=== PATIENT | male | born 1960 | race Caucasian/White ===

== ENCOUNTER 2017-11-21 19:01 | Inpatient (IN) | payer OTHER ==
[~2017-11-21] VITALS: Ht 177.8 cm; Wt 113.2 kg
[~2017-11-21 19:01] MED LIST: ALPR-412 PO; ASPI81TA25 PO; FLX10 PO; GLC/500 PO; GLIM2TAB2 PO; OXYC-57 PO
[2017-11-21] MEDS ORDERED: SODIUM CHLORIDE 0.9% 1000ML 1,000 ML IV STA (20:30)
[2017-11-21 20:44] LABS: BASO % 0.2 %; BASO ABS # 0.01 K/uL (0-0.2); EOS % 0.8 %; EOS ABS # 0.04 K/uL (0-0.5); HEMATOCRIT 48.9 % (42-52); HEMOGLOBIN 17.4 g/dL (14.0-18.0); IG# 0.05 K/uL (0.00-0.02); LYMPH % 26.4 %; LYMPH ABS # 1.35 K/uL (1.2-3.4); MEAN CELL VOLUME 89.9 fL (80-100); MEAN CORPUSCULAR HGB CONC 35.6 g/dl (32-36); MEAN PLATELET VOLUME 10.3 fL (7.4-10.4); MONO % 20.1 %; MONO ABS # 1.03 K/uL (0.11-0.59); NEUT % 51.5 %; NEUT ABS # 2.64 K/uL (1.4-6.5); PLATELET COUNT 273 K/uL (130-400); RED CELL DISTRIBUTION WIDTH CV 13.2 % (11.5-14.5); RED CELL DISTRIBUTION WIDTH SD 43.5 fL (36.4-46.3); WHITE BLOOD COUNT 5.12 K/uL (4.8-10.8)
[2017-11-21] MEDS ORDERED: OPTIRAY 320 IV PRN (20:45)
[2017-11-21 20:51] LABS: ISTAT CREATININE 0.7 mg/dl (0.6-1.3); ISTAT IONIZED CALCIUM 1.04 mmol/l (1.12-1.32); ISTAT POTASSIUM 3.7 mEq/L (3.3-5.0)
[2017-11-21 20:58] LABS: ALBUMIN 3.1 gm/dl (3.4-5.0); ALT/SGPT 33 U/L (12-78); AST/SGOT 11 U/L (15-37); BLOOD UREA NITROGEN 9 mg/dl (7-18); CALCIUM 8.4 mg/dl (8.5-10.1); CARBON DIOXIDE 30 mmol/L (21-32); GLUCOSE 320 mg/dl (70-99); LIPASE 90 U/L (73-393); POTASSIUM 3.6 mmol/L (3.5-5.1); SODIUM 131 mmol/L (136-145)
[2017-11-21 21:01] LABS: TOTAL PROTEIN 7.7 gm/dl (6.4-8.2)
[2017-11-21 21:08] LABS: ALKALINE PHOSPHATASE 87 U/L (45-117)
[2017-11-21] MEDS ORDERED: LISI2.5T5 PO (21:09)
[2017-11-21] MEDS ORDERED: METF-384 PO (21:09)
[2017-11-21] MEDS ORDERED: NORT25CA PO (21:09)
[2017-11-21] MEDS ORDERED: OXYC7.5T65 PO (21:09)
[2017-11-21] MEDS ORDERED: GLIM4TAB2 PO (21:09)
[2017-11-21] MEDS ORDERED: CYCL10TA6 PO (21:09)
[2017-11-21] MEDS ORDERED: NVLGI/PEN SC (21:15)
[2017-11-21] MEDS ORDERED: NAPR-1169 PO (21:15)
[2017-11-21] MEDS ORDERED: VENL-273 PEG (21:15)
[2017-11-21] MEDS ORDERED: SPRIN/30 INH (21:15)
--- NOTE | 2017-11-21 21:46 | DIAGNOSTIC IMAGING REPORT ---
ABDOMEN AND PELVIS CT WITH IV CONTRAST CT DOSE: 1438.49 mGy.cm HISTORY: Generalized abdominal pain. TECHNIQUE: Multiaxial CT images of the abdomen and pelvis were performed following the use of intravenous contrast. A dose lowering technique was utilized adhering to the principles of ALARA. COMPARISON STUDY: None. FINDINGS: The lung bases are clear. No pneumoperitoneum. No pneumatosis. Posterior fusion within the lumbar spine. Hepatic steatosis. The gallbladder, pancreas, spleen, adrenal glands, and kidneys are unremarkable. Mild bilateral perinephric edema which may be chronic. No retroperitoneal lymphadenopathy. The bladder is unremarkable. Multiple distended gas and fluid-filled loops of small bowel seen within the abdomen. The distal ileal loops are decompressed. Transition point is likely seen within the right mid abdomen on image 287. Therefore, these findings are consistent with a small bowel obstruction. The small bowel is distended up to 4 cm in diameter. Small amount of mesenteric fluid is identified. Normal appendix. IMPRESSION: Multiple distended gas and fluid-filled loops of small bowel seen throughout the abdomen. The distal ileal loops are decompressed and there is an apparent transition point within the small bowel at the right mid abdomen. Therefore, these findings are consistent with a small bowel obstruction. Electronically signed by: Jose Abbasi M.D. 11/21/2017 9:45 PM Dictated Date/Time: 11/21/2017 9:39 PM
[2017-11-21] MEDS ORDERED: MoRPHine SULFATE 10 MG/ML CARP/VIAL IV STA (22:16)
[2017-11-21] MEDS ORDERED: ONDANSETRON INJ 2 MG/ML 2 ML VIAL IV STA (22:16)
[2017-11-21] MEDS ORDERED: MoRPHine SULFATE 4 MG/ML 1 ML CARP\\VIAL IV STA (23:25)
[2017-11-21] MEDS ORDERED: SODIUM CHLORIDE 0.9% 500ML 500 ML IV STA (23:36)
--- NOTE | 2017-11-21 23:40 | EMERGENCY ROOM VISIT NOTE ---
History Report prepared by Oscar: Nicki Kong Under the Supervision of: Beatrice RomeroO. First contact with patient: 20:20 Chief Complaint: ABDOMINAL PAIN Stated Complaint: SEVERE STOMACH PAIN Nursing Triage Summary: nausea vomiting diarrhea for fours days. with severe abodmial pain states he feels like he is going to pop History of Present Illness The patient is a 56 year old male who presents to the Emergency Room with complaints of worsening diffuse abdominal pain for the past 3 days. He has been experiencing nausea, vomiting, and diarrhea. His last episode of vomiting was yesterday and he has had no vomiting today. He states that he has no appetite and has not eaten for the past 3 days. He has been able to keep down some water. His last BM was a couple of hours ago. Pt reports his abdomen feels very distended. He notes that family members were recently sick with similar symptoms. He rates his current pain as a 9/10 in severity. Pt denies headache, change in vision, fevers, chest pain, shortness of breath, pain with urination, and melena. Source of History: patient Onset: 3 days ago Position: abdomen (diffuse) Symptom Intensity: 9/10 Timing: worsening Associated Symptoms: + nausea, + vomiting, + diarrhea, No fevers, No headache, No chest pain, No SOB, No melena, No urinary symptoms Review of Systems See HPI for pertinent positives & negatives. A total of 10 systems reviewed and were otherwise negative. Past Medical & Surgical Medical Problems: (1) Spondylolisthesis (2) Ulnar nerve lesion Family History No pertinent history stated. Social History Smoking Status: Former Smoker Marital Status: Housing Status: lives with significant other Current/Historical Medications Scheduled Aspirin (Aspir-Low), 81 MG PO HS Glimepiride (Glimepiride), 8 MG PO DAILY Insulin Aspart (Novolog Flexpen), 1 DOSE SC ACHS Lisinopril (Lisinopril), 2.5 MG PO DAILY Metformin Hcl (Glucophage), 1,000 MG PO BIDM Nortriptyline (Pamelor), 25 MG PO HS Tiotropium [place] (Spiriva Handihaler), 1 CAP INH DAILY Scheduled PRN Alprazolam (Alprazolam), 0.25 MG PO DAILY PRN for Anxiety Cyclobenzaprine Hcl (Flexeril), 10 MG PO TID PRN for Muscle Spasm Naproxen (Naprosyn), 500 MG PO BID PRN for Pain Oxycodone/Acetaminophen 7.5MG/325MG (Percocet 7.5MG/325MG), 1 TAB PO Q6H PRN for Pain Allergies Coded Allergies: No Known Allergies (Verified Allergy, Unknown, 07/31/06) Physical Exam Vital Signs Date Time Temp Pulse Resp B/P (MAP) Pulse Ox O2 Delivery O2 Flow Rate FiO2 11/21/17 21:50 101 16 124/77 95 Room Air 11/21/17 19:49 36.7 111 20 131/84 95 Room Air Physical Exam GENERAL: Sitting up in bed, alert, ill appearing, well nourished, moderate distress, non-toxic EYE EXAM: normal conjunctiva. OROPHARYNX: no exudate, no erythema, lips, buccal mucosa, and tongue normal and mucous membranes are moist NECK: supple, no nuchal rigidity, no adenopathy, non-tender LUNGS: Clear to auscultation. Normal chest wall mechanics HEART: no murmurs, S1 normal and S2 normal ABDOMEN: abdomen soft, distended and TTP, normo-active bowel sounds, no masses, no rebound or guarding. BACK: Back is symmetrical on inspection and there is no deformity, no midline tenderness, no CVA tenderness. SKIN: no rashes and no bruising UPPER EXTREMITIES: upper extremities are grossly normal. LOWER EXTREMITIES: No pitting edema. NEURO EXAM: Normal sensorium, cranial nerves II-XII grossly intact, normal speech, no gross weakness of arms, no gross weakness of legs. Medical Decision & Procedures ER Provider Diagnostic Interpretation: Radiology results as stated below per my review and the radiologist's interpretation: ABDOMEN AND PELVIS CT WITH IV CONTRAST CT DOSE: 1438.49 mGy.cm HISTORY: Generalized abdominal pain. TECHNIQUE: Multiaxial CT images of the abdomen and pelvis were performed following the use of intravenous contrast. A dose lowering technique was utilized adhering to the principles of ALARA. COMPARISON STUDY: None. FINDINGS: The lung bases are clear. No pneumoperitoneum. No pneumatosis. Posterior fusion within the lumbar spine. Hepatic steatosis. The gallbladder, pancreas, spleen, adrenal glands, and kidneys are unremarkable. Mild bilateral perinephric edema which may be chronic. No retroperitoneal lymphadenopathy. The bladder is unremarkable. Multiple distended gas and fluid-filled loops of small bowel seen within the abdomen. The distal ileal loops are decompressed. Transition point is likely seen within the right mid abdomen on image 287. Therefore, these findings are consistent with a small bowel obstruction. The small bowel is distended up to 4 cm in diameter. Small amount of mesenteric fluid is identified. Normal appendix. IMPRESSION: Multiple distended gas and fluid-filled loops of small bowel seen throughout the abdomen. The distal ileal loops are decompressed and there is an apparent transition point within the small bowel at the right mid abdomen. Therefore, these findings are consistent with a small bowel obstruction. Electronically signed by: Jose Abbasi M.D. 11/21/2017 9:45 PM Dictated Date/Time: 11/21/2017 9:39 PM Laboratory Results 11/21/17 20:26 Red Blood Count 5.44, Mean Corpuscular Volume 89.9, Mean Corpuscular Hemoglobin 32.0, Mean Corpuscular Hemoglobin Concent 35.6, Mean Platelet Volume 10.3, Neutrophils (%) (Auto) 51.5, Lymphocytes (%) (Auto) 26.4, Monocytes (%) (Auto) 20.1, Eosinophils (%) (Auto) 0.8, Basophils (%) (Auto) 0.2, Neutrophils # (Auto ) 2.64, Lymphocytes # (Auto) 1.35, Monocytes # (Auto) 1.03, Eosinophils # (Auto ) 0.04, Basophils # (Auto) 0.01 11/21/17 20:26 Test 11/21/17 20:26 11/21/17 20:38 White Blood Count 5.12 K/uL (4.8-10.8) Red Blood Count 5.44 M/uL (4.7-6.1) Hemoglobin 17.4 g/dL (14.0-18.0) Hematocrit 48.9 % (42-52) Mean Corpuscular Volume 89.9 fL (80-100) Mean Corpuscular Hemoglobin 32.0 pg (25-34) Mean Corpuscular Hemoglobin Concent 35.6 g/dl (32-36) Platelet Count 273 K/uL (130-400) Mean Platelet Volume 10.3 fL (7.4-10.4) Neutrophils (%) (Auto) 51.5 % Lymphocytes (%) (Auto) 26.4 % Monocytes (%) (Auto) 20.1 % Eosinophils (%) (Auto) 0.8 % Basophils (%) (Auto) 0.2 % Neutrophils # (Auto) 2.64 K/uL (1.4-6.5) Lymphocytes # (Auto) 1.35 K/uL (1.2-3.4) Monocytes # (Auto) 1.03 K/uL (0.11-0.59) Eosinophils # (Auto) 0.04 K/uL (0-0.5) Basophils # (Auto) 0.01 K/uL (0-0.2) RDW Standard Deviation 43.5 fL (36.4-46.3) RDW Coefficient of Variation 13.2 % (11.5-14.5) Immature Granulocyte % (Auto) 1.0 % Immature Granulocyte # (Auto) 0.05 K/uL (0.00-0.02) Est Creatinine Clear Calc Drug Dose 114.9 ml/min Estimated GFR () 110.3 Estimated GFR (Non- 95.1 BUN/Creatinine Ratio 9.9 (10-20) Calcium Level 8.4 mg/dl (8.5-10.1) Total Bilirubin 0.5 mg/dl (0.2-1) Direct Bilirubin < 0.1 mg/dl (0-0.2) Aspartate Amino Transf (AST/SGOT) 11 U/L (15-37) Alanine Aminotransferase (ALT/SGPT) 33 U/L (12-78) Alkaline Phosphatase 87 U/L (45-117) Total Protein 7.7 gm/dl (6.4-8.2) Albumin 3.1 gm/dl (3.4-5.0) Lipase 90 U/L (73-393) Beta-Hydroxybutyric Acid 13.72 mg/dL (0.2-2.81) Bedside Hemoglobin 17.7 g/dl (14.0-18.0) Bedside Hematocrit 52 % (42-52) Bedside Sodium 135 mEq/L (135-144) Bedside Potassium 3.7 mEq/L (3.3-5.0) Bedside Chloride 90 mEq/L (101-112) Bedside Total CO2 29 mEq/l (24-31) Anion Gap 22.0 mmol/L (16-25) Bedside Blood Urea Nitrogen 9 mg/dl (7-18) Bedside Creatinine 0.7 mg/dl (0.6-1.3) Bedside Glucose (other) 348 mg/dl (70-99) Bedside Ionized Calcium (Santos) 1.04 mmol/l (1.12-1.32) Laboratory results per my review. Medications Administered Medications (Trade) Dose Ordered Sig/Dale Route Start Time Stop Time Status Last Admin Dose Admin Sodium Chloride 1,000 ml @ 999 mls/hr Q1H1M STAT IV 11/21/17 20:30 11/21/17 21:30 DC 11/21/17 20:30 999 MLS/HR Morphine Sulfate (MoRPHine SULFATE INJ) 6 mg NOW STAT IV 11/21/17 22:16 11/21/17 22:17 DC 11/21/17 22:23 6 MG Ondansetron HCl (Zofran Inj) 4 mg NOW STAT IV 11/21/17 22:16 11/21/17 22:17 DC 11/21/17 22:16 4 MG ED Course ED COURSE: Vital signs were reviewed and showed tachycardic. The patients medical record was reviewed The above diagnostic studies were performed and reviewed. ED treatments and interventions as stated above. 2020: The patient was evaluated in room B11B. A complete history and physical examination was performed. 2030: NSS 1000 ml @ 999 mls/hr IV 2152: I spoke with Dr. Plunkett. We discussed the patients case. The patient will be evaluated by the [facility] for further management. 5: Upon reevaluation, the patient is still uncomfortable. I discussed my findings with the patient and he understands and agrees with the treatment plan. Based on the patients age, coexisting illnesses, exam and lab findings the decision to treat as an inpatient was made. The patient remained stable while under my care. The patient will be evaluated for further management. 2216: Zofran 4 mg IV, Morphine sulfate 6 mg IV 2325: I reassessed the patient at he is doing well but still having some pain. 2325: Morphine sulfate 4 mg IV Medical Decision Differential diagnoses includes but is not limited to gastritis, peptic ulcer disease, GERD, gallbladder disease, pancreatitis, small bowel obstruction, acute coronary syndrome, pericarditis, ischemic bowel, irritable bowel disease, irritable bowel syndrome, appendicitis, diverticulitis, malignancy, hernia, urinary tract infection, torsion, perforation, trauma, infectious. Patient is a 56-year-old male who presents to ER with a distended abdomen. Patient is acutely tender to palpation. He was tachycardic. CT shows a small bowel obstruction. BMP shows mild hyponatremia. AST was elevated at 320. Bilirubin LFTs were unremarkable. Lipase is normal. Due to the distention of his abdomen NG tube was placed. He obtained minimal relief. He was given several doses of IV narcotics. He is given Zofran. He was given 1.5 L normal saline. Discussed case with general surgery and internal medicine. Patient will be admitted for small bowel obstruction. Family was updated at bedside. Medication Reconcilliation Current Medication List: was personally reviewed by me Blood Pressure Screening Patient's blood pressure: Normal blood pressure Consults Time Called: 2148 Consulting Physician: Dr. Plunkett Returned Call: [address] Plunkett. We discussed the patients case. The patient will be evaluated by the [facility] for further management. Impression Primary Impression: Small bowel obstruction Scribe Attestation The scribe's documentation has been prepared under my direction and personally reviewed by me in its entirety. I confirm that the note above accurately reflects all work, treatment, procedures, and medical decision making performed by me. Departure Information Dispostion Being Evaluated By Hospitalist Referrals Radha Courtney M.D. (PCP) Patient Instructions [facility]
--- NOTE | 2017-11-21 23:43 | History and Physical ---
History & Physical Date & Time of Service: Nov 21, 2017 at 23:30 Chief Complaint: Severe Stomach Pain Primary Care Physician: Radha Courtney M.D. History of Present Illness Source: patient, family 56 year old male with CAD, COPD, DMII, HTN, HLD and chronic back pain admitted for small bowel obstruction 3 days ago, woke up from sleep at 2am with vomiting and diarrhea. Attributed it to stomach bug as and daughter had similar symptoms the day prior. Had 3 episodes of vomiting, non-bloody, on that Sunday night, none since then. However, continues to have nausea. Has been having diarrhea almost hourly for the last 3 days, non bloody. This is abnormal for patient as he is normally constipated due to chronic Percocet use. Patient states he is continuing to pass flatus, even here in the ED. Patient notice abdominal bloating yesterday, which progressively worsened today and became unbearable. He has been unable for PO intake over the last 3 days, due to significant abdominal pain and nausea with each attempt. Also has associated chest discomfort secondary to bloated abdomen pushing up He otherwise denies fevers/chills (has chronic sweats), headaches, CP, palpitations, dyspnea, lower extremity swelling or rashes. Denies issues with voiding. He does describes "bumps" in his mouth which seemed to have appeared today. Denies any previous similar episodes. No abdominal/pelvic surgery. Has had back surgery but denies anterior approach. ROS is unremarkable except as noted above. Past Medical/Surgical History Medical Problems: DMII COPD Anxiety HTN/HLD Chronic back pain Spondylolisthesis Ulnar nerve lesion Surgical problems Back surgery x 2 Tumor removal from left chest and right posterior shoulder Arthroscopic knee surgery Social History Smoking Status: Former Smoker (Ex smoker, with 10 pack year history) Smokeless Tobacco Use: No Alcohol Use: none Drug Use: none Marital Status: Housing status: lives with family Immunizations History of Influenza Vaccine: No History of Tetanus Vaccine?: Yes Tetanus Immunization Date: Aug 03, 2005 History of Pneumococcal: No History of Hepatitis B Vaccine: No Multi-Drug Resistant Organisms History of MDRO: No Allergies Coded Allergies: No Known Allergies (Verified Allergy, Unknown, 07/31/06) Home Medications Scheduled Aspirin (Aspir-Low), 81 MG PO HS Glimepiride (Glimepiride), 8 MG PO DAILY Insulin Aspart (Novolog Flexpen), 1 DOSE SC ACHS Lisinopril (Lisinopril), 2.5 MG PO DAILY Metformin Hcl (Glucophage), 1,000 MG PO BIDM Nortriptyline (Pamelor), 25 MG PO HS Tiotropium [place] (Spiriva Handihaler), 1 CAP INH DAILY Scheduled PRN Alprazolam (Alprazolam), 0.25 MG PO DAILY PRN for Anxiety Cyclobenzaprine Hcl (Flexeril), 10 MG PO TID PRN for Muscle Spasm Naproxen (Naprosyn), 500 MG PO BID PRN for Pain Oxycodone/Acetaminophen 7.5MG/325MG (Percocet 7.5MG/325MG), 1 TAB PO Q6H PRN for Pain Physical Exam Vital Signs Date Time Temp Pulse Resp B/P (MAP) Pulse Ox O2 Delivery O2 Flow Rate FiO2 11/21/17 21:50 101 16 124/77 95 Room Air 11/21/17 19:49 36.7 111 20 131/84 95 Room Air General Appearance: WD/WN, no apparent distress Head: normocephalic, atraumatic Eyes: normal inspection ENT: hearing grossly normal, + pharyngeal erythema (Evidence of thrush on tongue and buccal mucosa), + pertinent finding (NGT in situ) Neck: supple, no adenopathy Respiratory/Chest: lungs clear, normal breath sounds, no respiratory distress, no accessory muscle use Cardiovascular: regular rate, rhythm, no murmur, normal peripheral pulses Abdomen/GI: normal bowel sounds (mildly hypoactive in lower abdomen), soft, + tenderness (mainly in epigastric region. Patient states abdomen couldn't be touched at all prior to morphine administration.), + distended Back: normal inspection, no CVA tenderness, + pertinent finding (scar on low back from previous surgery, tenderness on palpation here - not new) Extremities/Musculoskelatal: no calf tenderness, normal capillary refill, no pedal edema Neurologic/Psych: alert, normal mood/affect, oriented x 3 Skin: normal color, warm/dry, no rash Diagnostics Laboratory Results Results Past 24 Hours Test 11/21/17 20:26 11/21/17 20:38 Range/Units White Blood Count 5.12 4.8-10.8 K/uL Red Blood Count 5.44 4.7-6.1 M/uL Hemoglobin 17.4 14.0-18.0 g/dL Hematocrit 48.9 42-52 % Mean Corpuscular Volume 89.9 80-100 fL Mean Corpuscular Hemoglobin 32.0 25-34 pg Mean Corpuscular Hemoglobin Concent 35.6 32-36 g/dl Platelet Count 273 130-400 K/uL Mean Platelet Volume 10.3 7.4-10.4 fL Neutrophils (%) (Auto) 51.5 % Lymphocytes (%) (Auto) 26.4 % Monocytes (%) (Auto) 20.1 % Eosinophils (%) (Auto) 0.8 % Basophils (%) (Auto) 0.2 % Neutrophils # (Auto) 2.64 1.4-6.5 K/uL Lymphocytes # (Auto) 1.35 1.2-3.4 K/uL Monocytes # (Auto) 1.03 0.11-0.59 K/uL Eosinophils # (Auto) 0.04 0-0.5 K/uL Basophils # (Auto) 0.01 0-0.2 K/uL RDW Standard Deviation 43.5 36.4-46.3 fL RDW Coefficient of Variation 13.2 11.5-14.5 % Immature Granulocyte % (Auto) 1.0 % Immature Granulocyte # (Auto) 0.05 0.00-0.02 K/uL Sodium Level 131 136-145 mmol/L Potassium Level 3.6 3.5-5.1 mmol/L Chloride Level 94 98-107 mmol/L Carbon Dioxide Level 30 21-32 mmol/L Anion Gap 7.0 22.0 16-25 mmol/L Blood Urea Nitrogen 9 7-18 mg/dl Creatinine 0.90 0.60-1.40 mg/dl Est Creatinine Clear Calc Drug Dose 114.9 ml/min Estimated GFR () 110.3 Estimated GFR (Non- 95.1 BUN/Creatinine Ratio 9.9 10-20 Random Glucose 320 70-99 mg/dl Calcium Level 8.4 8.5-10.1 mg/dl Total Bilirubin 0.5 0.2-1 mg/dl Direct Bilirubin < 0.1 0-0.2 mg/dl Aspartate Amino Transf (AST/SGOT) 11 15-37 U/L Alanine Aminotransferase (ALT/SGPT) 33 12-78 U/L Alkaline Phosphatase 87 45-117 U/L Total Protein 7.7 6.4-8.2 gm/dl Albumin 3.1 3.4-5.0 gm/dl Lipase 90 73-393 U/L Beta-Hydroxybutyric Acid 13.72 0.2-2.81 mg/dL Bedside Hemoglobin 17.7 14.0-18.0 g/dl Bedside Hematocrit 52 42-52 % Bedside Sodium 135 135-144 mEq/L Bedside Potassium 3.7 3.3-5.0 mEq/L Bedside Chloride 90 101-112 mEq/L Bedside Total CO2 29 24-31 mEq/l Bedside Blood Urea Nitrogen 9 7-18 mg/dl Bedside Creatinine 0.7 0.6-1.3 mg/dl Bedside Glucose (other) 348 70-99 mg/dl Bedside Ionized Calcium (Santos) 1.04 1.12-1.32 mmol/l Diagnostic Radiology ABDOMEN AND PELVIS CT WITH IV CONTRAST CT DOSE: 1438.49 mGy.cm HISTORY: Generalized abdominal pain. TECHNIQUE: Multiaxial CT images of the abdomen and pelvis were performed following the use of intravenous contrast. A dose lowering technique was utilized adhering to the principles of ALARA. COMPARISON STUDY: None. FINDINGS: The lung bases are clear. No pneumoperitoneum. No pneumatosis. Posterior fusion within the lumbar spine. Hepatic steatosis. The gallbladder, pancreas, spleen, adrenal glands, and kidneys are unremarkable. Mild bilateral perinephric edema which may be chronic. No retroperitoneal lymphadenopathy. The bladder is unremarkable. Multiple distended gas and fluid-filled loops of small bowel seen within the abdomen. The distal ileal loops are decompressed. Transition point is likely seen within the right mid abdomen on image 287. Therefore, these findings are consistent with a small bowel obstruction. The small bowel is distended up to 4 cm in diameter. Small amount of mesenteric fluid is identified. Normal appendix. IMPRESSION: Multiple distended gas and fluid-filled loops of small bowel seen throughout the abdomen. The distal ileal loops are decompressed and there is an apparent transition point within the small bowel at the right mid abdomen. Therefore, these findings are consistent with a small bowel obstruction. Impression Assessment and Plan 56 year old male with CAD, COPD, DMII, HTN, HLD and chronic back pain admitted for small bowel obstruction SBO - CT abdo: multiple distended gas and fluid-filled loops of small bowel seen throughout the abdomen. The distal ileal loops are decompressed and there is an apparent transition point within the small bowel at the right mid abdomen - NPO - NGT - IVF NSS @ 100cc/hr - Surgery consulted - IV ondansetron 4mg q8h PRN nausea - IV morphine 2-4mg q4h PRN pain Diarrhea - most likely secondary to viral gastroenteritis - C.diff sent out (recent abx use <2 weeks ago post derm procedure) Thrush - Nystatin swish and spit CAD/HTN - Aspirin, lisinopril held for NPO status - IV hydralazine 10mg q6h for SBP >160 COPD - Continue Spiriva DMII - Metformin and glimepiride held - ISS with check ac/hs Chronic back pain - Hold Percocet, naproxen, Flexeril - IV morphine as above Anxiety - Alprazolam and nortriptyline held - IV Ativan 0.5mg q8h PRN anxiety VTE ppx - SCDs FULL CODE Resident Physician Supervision Note: Pt evaluated independently. I discussed the case with the resident and agree with the findings and plan as documented in the note. Any exceptions or clarifications are listed here: 56 y/o M Hx CAD, COPD, DMII, HTN, HPL , chronic back pain Presenting with diarrheal illness which resolved and was then followed by abdominal pain and persistent vomiting. The pt was subjected to a CT in the ER which revealed an SBO OE AAO x 3 S1,2 R CTAB Distended, diffusely tender abdomen No CCE P: NPO, IVF, NTG as needed - consult surgery Placed on SS for DM Would restart ASA at earliest possible time due to history of CAD BP can be treated with IV Hydralazine while pt is NPO Documented By: Ever Plunkett Level of Care Med/Surg Advanced Directives Existing Advance Directive: No Existing Living Will: No Existing Power of Cell Reliner: No Existing Health Care Proxy: Yes (: Kp) Resuscitation Status FULL RESUSCITATION VTE Prophylaxis VTE Risk Assessment Done? Y/N: Yes Risk Level: Moderate Given or contraindicated: SCD's Resident Tracking Resident Involvement: Resident Care Provided Care Provided: Adult Hospital Medicine
[2017-11-22] MEDS ORDERED: LORAZEPAM 2 MG/ML 1 ML VIAL IV PRN (00:30)
[2017-11-22] MEDS ORDERED: HydrALAZINE HCL 20 MG/ML VIAL IV. PRN (00:30)
[2017-11-22 01:35] VITALS: BP 156/109; PULSE 117; TEMP 36.5; O2SAT 93
[2017-11-22] MEDS ORDERED: NURSING DECISION MEDICATION ORDER SCH ×2 (01:45→22:30)
[2017-11-22 01:55] VITALS: BP 143/89; PULSE 111
[2017-11-22 02:04] VITALS: BMI 35.4
[2017-11-22] MEDS: INSULIN ASPART 100 UNITS/ML 3 ML PEN SC SCH ×4 (03:18→18:35)
[2017-11-22] MEDS: SODIUM CHLORIDE 0.9% 1000ML 1,000 ML IV SCH ×3 (03:18→23:17)
[2017-11-22] MEDS: MoRPHine SULFATE 4 MG/ML 1 ML CARP\\VIAL IV PRN ×2 (03:21→19:45)
--- NOTE | 2017-11-22 06:51 | Family Medicine Progress Note ---
Progress Note Date of Service Nov 22, 2017. Subjective Pt evaluation today including: conversation w/ patient, physical exam, chart review, lab review, conversation w/ health and safety consultant, review of inpatient medication list Pain: mild to moderate PO Intake: NPO Voiding: no voiding problems Patient states that his abdominal pain has improved. He still feels mildly nauseated. He has not had any diarrhea. He is frustrated that he cannot eat and states he hasn't ate in 4 days. Notes his last colonoscopy was >10 years ago and he has had 10 pound weight loss in past 6 months but says this has been intentional Constitutional: No fever, No chills Respiratory: No cough, No shortness of breath Cardiovascular: No chest pain, No edema Abdomen: + pain, + nausea, No vomiting, No diarrhea Male : No dysuria, No urinary frequency Medications Current Inpatient Medications Medications (Trade) Dose Ordered Sig/Dale Route Start Time Stop Time Status Last Admin Dose Admin Ioversol (Optiray 320) 100 ml UD PRN IV 11/21/17 20:45 11/25/17 20:44 Ondansetron HCl (Zofran Inj) 4 mg Q6H PRN IV 11/22/17 00:30 12/22/17 00:29 Tiotropium [place] (Spiriva Handihaler Inhaler) 1 puff DAILY INH 11/22/17 09:00 12/22/17 08:59 11/22/17 07:51 1 PUFF Hydralazine HCl (HydrALAZINE INJ) 10 mg Q6H PRN IV. 11/22/17 00:30 12/22/17 00:29 Morphine Sulfate (MoRPHine SULFATE INJ) 4 mg Q4H PRN IV 11/22/17 00:30 12/06/17 00:29 11/22/17 03:21 4 MG Glucagon (Glucagon Inj) 1 mg UD PRN SQ 11/22/17 19:15 12/22/17 19:14 Glucose (Glucose 40% Gel) 15-30 GRAMS 15 GRAMS... UD PRN PO 11/22/17 19:15 12/22/17 19:14 Glucose (Glucose Chew Tab) 4-8 Tablets 4 Tabl... UD PRN PO 11/22/17 19:15 12/22/17 19:14 Insulin Aspart (novoLOG ASPART) SLIDING SCALE If C... Q6 SC 11/22/17 02:30 12/22/17 02:29 11/22/17 12:17 4 UNITS Nystatin (Mycostatin Susp) 10 ml QID PO 11/22/17 09:00 12/02/17 08:59 11/22/17 12:17 10 ML Sodium Chloride 1,000 ml @ 100 mls/hr Q10H IV 11/22/17 00:45 12/22/17 00:44 11/22/17 12:11 100 MLS/HR Lorazepam 0.5 mg/ Syringe 1 ml @ 1 mls/min Q8H PRN IV 11/22/17 02:30 12/22/17 02:29 Acetaminophen 650 mg/Empty Bag 65 ml @ 260 mls/hr Q6H PRN IV 11/22/17 08:45 12/22/17 08:44 Objective Vital Signs Date Time Temp Pulse Resp B/P (MAP) Pulse Ox O2 Delivery O2 Flow Rate FiO2 11/22/17 15:17 37.0 97 18 120/78 (92) 91 Room Air 11/22/17 08:09 36.9 101 18 138/86 (103) 95 Room Air 11/22/17 07:50 Room Air 11/22/17 02:10 Room Air 11/22/17 02:04 Room Air 11/22/17 01:55 111 143/89 (107) 11/22/17 01:35 36.5 117 20 156/109 (125) 93 Room Air 11/22/17 00:14 110 22 153/93 90 Room Air 11/21/17 21:50 101 16 124/77 95 Room Air 11/21/17 19:49 36.7 111 20 131/84 95 Room Air Physical Exam General Appearance: WD/WN, no apparent distress, + pertinent finding (NG tube in place, patient appears disheveled) Neck: supple, no JVD, trachea midline Respiratory/Chest: lungs clear, no respiratory distress, no accessory muscle use Cardiovascular: regular rate, rhythm, no edema, no murmur Abdomen: + abnormal bowel sounds (decreased bowel sounds), + distended, + tenderness (R sided abdominal pain tender to palpation, no rebound or guarding) Extremities: non-tender, no pedal edema, no calf tenderness Laboratory Results Results Past 24 Hours Test 11/21/17 20:26 11/21/17 20:38 11/22/17 01:42 11/22/17 02:33 Range/Units White Blood Count 5.12 4.8-10.8 K/uL Red Blood Count 5.44 4.7-6.1 M/uL Hemoglobin 17.4 14.0-18.0 g/dL Hematocrit 48.9 42-52 % Mean Corpuscular Volume 89.9 80-100 fL Mean Corpuscular Hemoglobin 32.0 25-34 pg Mean Corpuscular Hemoglobin Concent 35.6 32-36 g/dl Platelet Count 273 130-400 K/uL Mean Platelet Volume 10.3 7.4-10.4 fL Neutrophils (%) (Auto) 51.5 % Lymphocytes (%) (Auto) 26.4 % Monocytes (%) (Auto) 20.1 % Eosinophils (%) (Auto) 0.8 % Basophils (%) (Auto) 0.2 % Neutrophils # (Auto) 2.64 1.4-6.5 K/uL Lymphocytes # (Auto) 1.35 1.2-3.4 K/uL Monocytes # (Auto) 1.03 0.11-0.59 K/uL Eosinophils # (Auto) 0.04 0-0.5 K/uL Basophils # (Auto) 0.01 0-0.2 K/uL RDW Standard Deviation 43.5 36.4-46.3 fL RDW Coefficient of Variation 13.2 11.5-14.5 % Immature Granulocyte % (Auto) 1.0 % Immature Granulocyte # (Auto) 0.05 0.00-0.02 K/uL Sodium Level 131 136-145 mmol/L Potassium Level 3.6 3.5-5.1 mmol/L Chloride Level 94 98-107 mmol/L Carbon Dioxide Level 30 21-32 mmol/L Anion Gap 7.0 22.0 16-25 mmol/L Blood Urea Nitrogen 9 7-18 mg/dl Creatinine 0.90 0.60-1.40 mg/dl Est Creatinine Clear Calc Drug Dose 114.9 ml/min Estimated GFR () 110.3 Estimated GFR (Non- 95.1 BUN/Creatinine Ratio 9.9 10-20 Random Glucose 320 70-99 mg/dl Calcium Level 8.4 8.5-10.1 mg/dl Total Bilirubin 0.5 0.2-1 mg/dl Direct Bilirubin < 0.1 0-0.2 mg/dl Aspartate Amino Transf (AST/SGOT) 11 15-37 U/L Alanine Aminotransferase (ALT/SGPT) 33 12-78 U/L Alkaline Phosphatase 87 45-117 U/L Total Protein 7.7 6.4-8.2 gm/dl Albumin 3.1 3.4-5.0 gm/dl Lipase 90 73-393 U/L Beta-Hydroxybutyric Acid 13.72 0.2-2.81 mg/dL Bedside Hemoglobin 17.7 14.0-18.0 g/dl Bedside Hematocrit 52 42-52 % Bedside Sodium 135 135-144 mEq/L Bedside Potassium 3.7 3.3-5.0 mEq/L Bedside Chloride 90 101-112 mEq/L Bedside Total CO2 29 24-31 mEq/l Bedside Blood Urea Nitrogen 9 7-18 mg/dl Bedside Creatinine 0.7 0.6-1.3 mg/dl Bedside Glucose (other) 348 70-99 mg/dl Bedside Ionized Calcium (Santos) 1.04 1.12-1.32 mmol/l Urine Color YELLOW Urine Appearance CLEAR CLEAR Urine pH 5.0 4.5-7.5 Urine Specific [place] > 1.045 1.000-1.030 Urine Protein NEG NEG Urine Glucose (UA) 3+ NEG Urine Ketones 3+ NEG Urine Occult Blood NEG NEG Urine Nitrite NEG NEG Urine Bilirubin NEG NEG Urine Urobilinogen NEG NEG Urine Leukocyte Esterase NEG NEG Urine WBC (Auto) 1-5 0-5 /hpf Urine RBC (Auto) 0-4 0-4 /hpf Urine Hyaline Casts (Auto) 0 0-5 /lpf Urine Epithelial Cells (Auto) 0-5 0-5 /lpf Urine Bacteria (Auto) NEG NEG Bedside Glucose 301 70-99 mg/dl Test 11/22/17 05:43 11/22/17 07:41 11/22/17 11:37 Range/Units Bedside Glucose 287 70-99 mg/dl White Blood Count 4.10 4.8-10.8 K/uL Red Blood Count 4.97 4.7-6.1 M/uL Hemoglobin 15.4 14.0-18.0 g/dL Hematocrit 45.3 42-52 % Mean Corpuscular Volume 91.1 80-100 fL Mean Corpuscular Hemoglobin 31.0 25-34 pg Mean Corpuscular Hemoglobin Concent 34.0 32-36 g/dl RDW Standard Deviation 44.1 36.4-46.3 fL RDW Coefficient of Variation 13.4 11.5-14.5 % Platelet Count 243 130-400 K/uL Mean Platelet Volume 9.7 7.4-10.4 fL Sodium Level 137 136-145 mmol/L Potassium Level 3.4 3.5-5.1 mmol/L Chloride Level 101 98-107 mmol/L Carbon Dioxide Level 29 21-32 mmol/L Anion Gap 7.0 3-11 mmol/L Blood Urea Nitrogen 7 7-18 mg/dl Creatinine 0.77 0.60-1.40 mg/dl Est Creatinine Clear Calc Drug Dose 134.2 ml/min Estimated GFR () 117.6 Estimated GFR (Non- 101.4 BUN/Creatinine Ratio 9.5 10-20 Random Glucose 228 70-99 mg/dl Calcium Level 7.7 8.5-10.1 mg/dl Lactic Acid Level 1.8 0.4-2.0 mmol/L Assessment and Plan 56 year old male with CAD, COPD, DMII, HTN, HLD and chronic back pain admitted for small bowel obstruction SBO - CT abdo: multiple distended gas and fluid-filled loops of small bowel seen throughout the abdomen. The distal ileal loops are decompressed and there is an apparent transition point within the small bowel at the right mid abdomen - NPO - NGT - IVF NSS @ 100cc/hr - Surgery consulted - IV ondansetron 4mg q8h PRN nausea - IV morphine 2-4mg q4h PRN pain Diarrhea - most likely secondary to viral gastroenteritis - C.diff sent out (recent abx use <2 weeks ago post derm procedure) - no bowel movement thus far Thrush - Nystatin swish and spit CAD/HTN - Aspirin, lisinopril held for NPO status - IV hydralazine 10mg q6h for SBP >160 COPD - Continue Spiriva DMII - Metformin and glimepiride held - ISS with check ac/hs - blood sugars have been elevated, will given 15 units of lantus tonight and titrate upwards - check blood glucose q4hrs Chronic back pain - Hold Percocet, naproxen, Flexeril - IV morphine as above Anxiety - Alprazolam and nortriptyline held - IV Ativan 0.5mg q8h PRN anxiety VTE ppx - SCDs FULL CODE Continued [facility] stay due to: inadequate po fluid intake Discharge planning: uncertain History Resident Physician Supervision Note: I was present with Dr. Parisi during the history and exam. I discussed the case with the resident and agree with the findings and plan as documented in the note. Any exceptions or clarifications are listed here. Pt reports improved nausea and abdominal distention and TTP after placement of NG tube. Passing flatus without BM. General Appearance: no apparent distress (w/ NGT in place), obese Respiratory: chest non-tender, lungs clear, normal breath sounds, no respiratory distress Cardiovascular: normal peripheral pulses, regular rate, rhythm, no murmur Gastrointestinal: normal bowel sounds, no organomegaly, distended, tenderness ( predominantly epigastric RUQ) Assessment/Plan 56 y/o male h/o CAD, HTN, DMII, COPD, HLD, LBP presents with SBO SBO - continue NPO/NGT. Passing flatus. Persistent output of NGT. Surgical consultation. Continue IVF, zofran, morphine Diarrhea - no BM today Thrush - Nystatin DMII - holding home regimen. Would add 15U lantus, continue ISS and monitor CAD/HTN - monitor w/ hydralazine PRN until tolerating POI VTE PPX - SCD FULL CODE
[2017-11-22] MEDS: TIOTROPIUM BROMIDE 5 PUFF/90 MCG INH INH SCH (07:51)
[2017-11-22] MEDS: NYSTATIN SUSP 500,000 U/5 ML UDC PO SCH ×4 (07:52→20:37)
[2017-11-22 08:09] VITALS: BP 138/86; PULSE 101; TEMP 36.9; O2SAT 95
[2017-11-22 08:10] LABS: HEMATOCRIT 45.3 % (42-52); HEMOGLOBIN 15.4 g/dL (14.0-18.0); MEAN CELL VOLUME 91.1 fL (80-100); MEAN PLATELET VOLUME 9.7 fL (7.4-10.4); PLATELET COUNT 243 K/uL (130-400); RED CELL DISTRIBUTION WIDTH CV 13.4 % (11.5-14.5); RED CELL DISTRIBUTION WIDTH SD 44.1 fL (36.4-46.3)
[2017-11-22 08:43] LABS: CALCIUM 7.7 mg/dl (8.5-10.1); CREATININE 0.77 mg/dl (0.60-1.40); POTASSIUM 3.4 mmol/L (3.5-5.1)
[2017-11-22] MEDS ORDERED: ACETAMINOPHEN IV 650 MG in EMPTY BAG 0 ML IV PRN (08:45)
[2017-11-22 14:16] VITALS: BMI 35.4
[2017-11-22 15:17] VITALS: BP 120/78; PULSE 97; TEMP 37; O2SAT 91
--- NOTE | 2017-11-22 17:11 | Surgery Consultation ---
Consultation Date of Consultation: Nov 22, 2017. Attending Physician: Moncho De Leon MD Reason for Consultation: SBO History of Present Illness Artis is a pleasant 56 year old male with past medical history of CAD, COPD, DMII, HTN, HLD and chronic back pain for complaint of abdominal pain and diarrhea for the past 3 days. States he woke up 3 days ago from sleep at 2am with vomiting and diarrhea. Attributed it to stomach bug as and daughter had similar symptoms the day prior. Had 3 episodes of vomiting, non-bloody, on that Sunday night, none since then. However, continues to have nausea and diarrhea. Has been having diarrhea almost hourly for the last 3 days, non bloody. This is abnormal for patient as he is normally constipated due to chronic Percocet use. Patient states he is continuing to pass flatus. Patient noticed abdominal bloating starting Sunday and progressively worsened. He has been unable for PO intake over the last 3 days, due to significant abdominal pain and nausea with each attempt. Also has associated chest discomfort secondary to bloated abdomen pushing up He otherwise denies fevers/chills (has chronic sweats), headaches, CP, palpitations, dyspnea, lower extremity swelling or rashes. Denies issues with voiding. Since admission and placement of NGT he states he is feeling better. Abdominal bloating and pain are improved. Passing flatus but no bowel movement. No nausea or vomiting. Past Medical/Surgical History Past Medical/Surgical History Medical Problems: DMII COPD Anxiety HTN/HLD Chronic back pain Spondylolisthesis Ulnar nerve lesion Surgical problems Back surgery x 2 Tumor removal from left chest and right posterior shoulder Arthroscopic knee surgery Social History Smoking Status: Never Smoker Smokeless Tobacco Use: No Alcohol Use: none Drug Use: none Marital Status: Housing Status: lives with significant other Allergies Coded Allergies: No Known Allergies (Verified Allergy, Unknown, 07/31/06) Home Medications Scheduled Aspirin (Aspir-Low), 81 MG PO HS Glimepiride (Glimepiride), 8 MG PO DAILY Insulin Aspart (Novolog Flexpen), 1 DOSE SC ACHS Lisinopril (Lisinopril), 2.5 MG PO DAILY Metformin Hcl (Glucophage), 1,000 MG PO BIDM Nortriptyline (Pamelor), 25 MG PO HS Tiotropium [place] (Spiriva Handihaler), 1 CAP INH DAILY Scheduled PRN Alprazolam (Alprazolam), 0.25 MG PO DAILY PRN for Anxiety Cyclobenzaprine Hcl (Flexeril), 10 MG PO TID PRN for Muscle Spasm Naproxen (Naprosyn), 500 MG PO BID PRN for Pain Oxycodone/Acetaminophen 7.5MG/325MG (Percocet 7.5MG/325MG), 1 TAB PO Q6H PRN for Pain Current Inpatient Medications Current Inpatient Medications Medications (Trade) Dose Ordered Sig/Dale Route Start Time Stop Time Status Last Admin Dose Admin Ioversol (Optiray 320) 100 ml UD PRN IV 11/21/17 20:45 11/25/17 20:44 Ondansetron HCl (Zofran Inj) 4 mg Q6H PRN IV 11/22/17 00:30 12/22/17 00:29 Tiotropium [place] (Spiriva Handihaler Inhaler) 1 puff DAILY INH 11/22/17 09:00 12/22/17 08:59 11/22/17 07:51 1 PUFF Hydralazine HCl (HydrALAZINE INJ) 10 mg Q6H PRN IV. 11/22/17 00:30 12/22/17 00:29 Morphine Sulfate (MoRPHine SULFATE INJ) 4 mg Q4H PRN IV 11/22/17 00:30 12/06/17 00:29 11/22/17 03:21 4 MG Glucagon (Glucagon Inj) 1 mg UD PRN SQ 11/22/17 19:15 12/22/17 19:14 Glucose (Glucose 40% Gel) 15-30 GRAMS 15 GRAMS... UD PRN PO 11/22/17 19:15 12/22/17 19:14 Glucose (Glucose Chew Tab) 4-8 Tablets 4 Tabl... UD PRN PO 11/22/17 19:15 12/22/17 19:14 Insulin Aspart (novoLOG ASPART) SLIDING SCALE If C... Q6 SC 11/22/17 02:30 12/22/17 02:29 11/22/17 12:17 4 UNITS Nystatin (Mycostatin Susp) 10 ml QID PO 11/22/17 09:00 12/02/17 08:59 11/22/17 12:17 10 ML Sodium Chloride 1,000 ml @ 100 mls/hr Q10H IV 11/22/17 00:45 12/22/17 00:44 11/22/17 12:11 100 MLS/HR Lorazepam 0.5 mg/ Syringe 1 ml @ 1 mls/min Q8H PRN IV 11/22/17 02:30 12/22/17 02:29 Acetaminophen 650 mg/Empty Bag 65 ml @ 260 mls/hr Q6H PRN IV 11/22/17 08:45 12/22/17 08:44 Insulin Glargine (Lantus Solostar Pen) 15 units DAILY SC 11/23/17 09:00 12/23/17 08:59 Review of Systems Constitutional: No fever, No chills, No sweats Respiratory: No shortness of breath Cardiovascular: No chest pain Abdomen: + pain, + nausea, + vomiting, + diarrhea, No GI bleeding Genitourinary - Male: No hematuria, No dysuria Integumentary: No rash Physical Exam Date Time Temp Pulse Resp B/P (MAP) Pulse Ox O2 Delivery O2 Flow Rate FiO2 11/22/17 15:41 Room Air 11/22/17 15:17 37.0 97 18 120/78 (92) 91 Room Air 11/22/17 08:09 36.9 101 18 138/86 (103) 95 Room Air 11/22/17 07:50 Room Air 11/22/17 02:10 Room Air 11/22/17 02:04 Room Air 11/22/17 01:55 111 143/89 (107) 11/22/17 01:35 36.5 117 20 156/109 (125) 93 Room Air 11/22/17 00:14 110 22 153/93 90 Room Air 11/21/17 21:50 101 16 124/77 95 Room Air 11/21/17 19:49 36.7 111 20 131/84 95 Room Air General Appearance: WD/WN, no apparent distress Head: normocephalic, atraumatic Eyes: sclerae normal ENT: hearing grossly normal, + pertinent finding (NGT present, bilious output) Neck: trachea midline Respiratory/Chest: lungs clear, normal breath sounds, no respiratory distress, no accessory muscle use Cardiovascular: regular rate, rhythm, no murmur Abdomen/GI: soft, + distended (moderate distention, no rigidity, guarding, rebound, or peritonitis) Back: normal inspection Extremities/Musculoskelatal: normal inspection Neurologic/Psych: alert, normal mood/affect, oriented x 3 Skin: normal color, warm/dry, no rash Laboratory Results Last 24 Hours Test 11/21/17 20:26 11/21/17 20:38 11/22/17 01:42 11/22/17 02:33 White Blood Count 5.12 K/uL Red Blood Count 5.44 M/uL Hemoglobin 17.4 g/dL Hematocrit 48.9 % Mean Corpuscular Volume 89.9 fL Mean Corpuscular Hemoglobin 32.0 pg Mean Corpuscular Hemoglobin Concent 35.6 g/dl Platelet Count 273 K/uL Mean Platelet Volume 10.3 fL Neutrophils (%) (Auto) 51.5 % Lymphocytes (%) (Auto) 26.4 % Monocytes (%) (Auto) 20.1 % Eosinophils (%) (Auto) 0.8 % Basophils (%) (Auto) 0.2 % Neutrophils # (Auto) 2.64 K/uL Lymphocytes # (Auto) 1.35 K/uL Monocytes # (Auto) 1.03 K/uL Eosinophils # (Auto) 0.04 K/uL Basophils # (Auto) 0.01 K/uL RDW Standard Deviation 43.5 fL RDW Coefficient of Variation 13.2 % Immature Granulocyte % (Auto) 1.0 % Immature Granulocyte # (Auto) 0.05 K/uL Sodium Level 131 mmol/L Potassium Level 3.6 mmol/L Chloride Level 94 mmol/L Carbon Dioxide Level 30 mmol/L Anion Gap 7.0 mmol/L 22.0 mmol/L Blood Urea Nitrogen 9 mg/dl Creatinine 0.90 mg/dl Est Creatinine Clear Calc Drug Dose 114.9 ml/min Estimated GFR () 110.3 Estimated GFR (Non- 95.1 BUN/Creatinine Ratio 9.9 Random Glucose 320 mg/dl Calcium Level 8.4 mg/dl Total Bilirubin 0.5 mg/dl Direct Bilirubin < 0.1 mg/dl Aspartate Amino Transf (AST/SGOT) 11 U/L Alanine Aminotransferase (ALT/SGPT) 33 U/L Alkaline Phosphatase 87 U/L Total Protein 7.7 gm/dl Albumin 3.1 gm/dl Lipase 90 U/L Beta-Hydroxybutyric Acid 13.72 mg/dL Bedside Hemoglobin 17.7 g/dl Bedside Hematocrit 52 % Bedside Sodium 135 mEq/L Bedside Potassium 3.7 mEq/L Bedside Chloride 90 mEq/L Bedside Total CO2 29 mEq/l Bedside Blood Urea Nitrogen 9 mg/dl Bedside Creatinine 0.7 mg/dl Bedside Glucose (other) 348 mg/dl Bedside Ionized Calcium ([place]antos) 1.04 mmol/l Urine Color YELLOW Urine Appearance CLEAR Urine pH 5.0 Urine Specific [place] > 1.045 Urine Protein NEG Urine Glucose (UA) 3+ Urine Ketones 3+ Urine Occult Blood NEG Urine Nitrite NEG Urine Bilirubin NEG Urine Urobilinogen NEG Urine Leukocyte Esterase NEG Urine WBC (Auto) 1-5 /hpf Urine RBC (Auto) 0-4 /hpf Urine Hyaline Casts (Auto) 0 /lpf Urine Epithelial Cells (Auto) 0-5 /lpf Urine Bacteria (Auto) NEG Bedside Glucose 301 mg/dl Test 11/22/17 05:43 11/22/17 07:41 11/22/17 11:37 Bedside Glucose 287 mg/dl White Blood Count 4.10 K/uL Red Blood Count 4.97 M/uL Hemoglobin 15.4 g/dL Hematocrit 45.3 % Mean Corpuscular Volume 91.1 fL Mean Corpuscular Hemoglobin 31.0 pg Mean Corpuscular Hemoglobin Concent 34.0 g/dl RDW Standard Deviation 44.1 fL RDW Coefficient of Variation 13.4 % Platelet Count 243 K/uL Mean Platelet Volume 9.7 fL Sodium Level 137 mmol/L Potassium Level 3.4 mmol/L Chloride Level 101 mmol/L Carbon Dioxide Level 29 mmol/L Anion Gap 7.0 mmol/L Blood Urea Nitrogen 7 mg/dl Creatinine 0.77 mg/dl Est Creatinine Clear Calc Drug Dose 134.2 ml/min Estimated GFR () 117.6 Estimated GFR (Non- 101.4 BUN/Creatinine Ratio 9.5 Random Glucose 228 mg/dl Calcium Level 7.7 mg/dl Lactic Acid Level 1.8 mmol/L ABDOMEN AND PELVIS CT WITH IV CONTRAST CT DOSE: 1438.49 mGy.cm HISTORY: Generalized abdominal pain. TECHNIQUE: Multiaxial CT images of the abdomen and pelvis were performed following the use of intravenous contrast. A dose lowering technique was utilized adhering to the principles of ALARA. COMPARISON STUDY: None. FINDINGS: The lung bases are clear. No pneumoperitoneum. No pneumatosis. Posterior fusion within the lumbar spine. Hepatic steatosis. The gallbladder, pancreas, spleen, adrenal glands, and kidneys are unremarkable. Mild bilateral perinephric edema which may be chronic. No retroperitoneal lymphadenopathy. The bladder is unremarkable. Multiple distended gas and fluid-filled loops of small bowel seen within the abdomen. The distal ileal loops are decompressed. Transition point is likely seen within the right mid abdomen on image 287. Therefore, these findings are consistent with a small bowel obstruction. The small bowel is distended up to 4 cm in diameter. Small amount of mesenteric fluid is identified. Normal appendix. IMPRESSION: Multiple distended gas and fluid-filled loops of small bowel seen throughout the abdomen. The distal ileal loops are decompressed and there is an apparent transition point within the small bowel at the right mid abdomen. Therefore, these findings are consistent with a small bowel obstruction. Assessment & Plan 56 year-old male who presented to emergency department with complaint of vomiting, diarrhea, and abdominal pain for [address] scan showing dilated small bowel measuring up to 4.0 cm with apparent transition point in right lower abdomen. No prior abdominal surgeries. Multiple days of diarrhea prior to admission. Last bowel movement prior to ER arrival. No leukocytosis. Lactic acid at 1.8. Abdominal pain improved after NGT placement. Passing flatus. Possibly Ileus vs PSBO secondary to gastroenteritis?? Plan: Continue conservative treatment: Iv fluids, NPO, IV pain management as needed, IV Zofran, NGT to LIS. Encourage ambulation Continue current medical management Repeat am labs Will follow DR. Coles has seen and examined patient, agrees with above.
[2017-11-22] MEDS ORDERED: GLUCOSE 10 TABS/TUBE PO PRN (19:15)
[2017-11-22] MEDS ORDERED: GLUCAGON FOR INJ 1 MG VIAL SQ PRN (19:15)
[2017-11-22] MEDS ORDERED: GLUCOSE 40% GEL 15 GM TUBE PO PRN (19:15)
[2017-11-22] MEDS: LORAZEPAM INJ 0.5 MG in SYRINGE 0.75 ML IV PRN (21:00)
[2017-11-22 23:13] VITALS: BP 142/92; PULSE 102; TEMP 36.4; O2SAT 93
[2017-11-23] MEDS: INSULIN ASPART 100 UNITS/ML 3 ML PEN SC SCH ×5 (00:01→21:12)
[2017-11-23 07:27] VITALS: BP 147/93; PULSE 97; TEMP 36.8; O2SAT 97
[2017-11-23 08:19] LABS: HEMATOCRIT 46.8 % (42-52); HEMOGLOBIN 15.6 g/dL (14.0-18.0); MEAN CELL VOLUME 93.4 fL (80-100); MEAN CORPUSCULAR HEMOGLOBIN 31.1 pg (25-34); MEAN CORPUSCULAR HGB CONC 33.3 g/dl (32-36); MEAN PLATELET VOLUME 9.9 fL (7.4-10.4); PLATELET COUNT 272 K/uL (130-400); RED CELL DISTRIBUTION WIDTH CV 13.8 % (11.5-14.5); WHITE BLOOD COUNT 5.69 K/uL (4.8-10.8)
[2017-11-23] MEDS: TIOTROPIUM BROMIDE 5 PUFF/90 MCG INH INH SCH (08:29)
[2017-11-23] MEDS: NYSTATIN SUSP 500,000 U/5 ML UDC PO SCH ×4 (08:30→21:03)
[2017-11-23 08:51] LABS: CALCIUM 8.3 mg/dl (8.5-10.1); CREATININE 0.86 mg/dl (0.60-1.40); POTASSIUM 3.2 mmol/L (3.5-5.1)
[2017-11-23] MEDS ORDERED: INSULIN GLARGINE SOLOSTAR 100 UNITS/ML 3 ML PEN SC SCH (09:00)
[2017-11-23] MEDS: SODIUM CHLORIDE 0.9% 1000ML 1,000 ML IV SCH ×2 (09:58→19:45)
--- NOTE | 2017-11-23 14:20 | Surgery Progress Note ---
Surgery Progress Note Date of Service Nov 23, 2017. Subjective Post OP Day: HD # 1 + feeling well, + complaints (hungry would like to eat something), + flatus, + pain controlled, No chest pain, No SOB, No bowel movement, No nausea, No vomiting Objective Vital Signs: Date Time Temp Pulse Resp B/P (MAP) Pulse Ox O2 Delivery O2 Flow Rate FiO2 11/23/17 07:41 Room Air 11/23/17 07:27 36.8 97 18 147/93 (111) 97 Room Air 11/22/17 23:20 Room Air 11/22/17 23:13 36.4 102 16 142/92 (109) 93 Room Air 11/22/17 15:41 Room Air 11/22/17 15:17 37.0 97 18 120/78 (92) 91 Room Air Physical Exam: nasogastric drainage (dark brown output) General Appearance: WD/WN, no apparent distress Head: normocephalic, atraumatic Neck: trachea midline Respiratory/Chest: lungs clear, normal breath sounds, no respiratory distress, no accessory muscle use Cardiovascular: regular rate, rhythm, no murmur Abdomen: non tender, non distended, soft, no organomegaly, no pulsatile mass, + abnormal bowel sounds (hypoactive bowel sounds) Laboratory Results: Results Past 24 Hours Test 11/22/17 18:30 11/22/17 23:52 11/23/17 07:57 Range/Units Bedside Glucose 261 199 70-99 mg/dl White Blood Count 5.69 4.8-10.8 K/uL Red Blood Count 5.01 4.7-6.1 M/uL Hemoglobin 15.6 14.0-18.0 g/dL Hematocrit 46.8 42-52 % Mean Corpuscular Volume 93.4 80-100 fL Mean Corpuscular Hemoglobin 31.1 25-34 pg Mean Corpuscular Hemoglobin Concent 33.3 32-36 g/dl RDW Standard Deviation 47.0 36.4-46.3 fL RDW Coefficient of Variation 13.8 11.5-14.5 % Platelet Count 272 130-400 K/uL Mean Platelet Volume 9.9 7.4-10.4 fL Sodium Level 139 136-145 mmol/L Potassium Level 3.2 3.5-5.1 mmol/L Chloride Level 100 98-107 mmol/L Carbon Dioxide Level 23 21-32 mmol/L Anion Gap 16.0 3-11 mmol/L Blood Urea Nitrogen 8 7-18 mg/dl Creatinine 0.86 0.60-1.40 mg/dl Est Creatinine Clear Calc Drug Dose 120.2 ml/min Estimated GFR () 112.4 Estimated GFR (Non- 96.9 BUN/Creatinine Ratio 9.6 10-20 Random Glucose 276 70-99 mg/dl Calcium Level 8.3 8.5-10.1 mg/dl Assessment & Plan Partial SBO - resolving 0vitals stable - no leukocytosis - minimal abdominal pain, rating 2.5/10 currently ( on admission) - lactic acid checked yesterday wnl - NGT with dark brown output, 1400 yesterday - + flatus Plan: Discontinue NGT Start clear liquids, advised to go slowly, stop if any nausea. Advance as tolerated Encourage ambulation Continue current medical management Dr. Milligan to cover the weekend Dr. Coles has seen and examined patient, agrees with above
[2017-11-23 14:55] VITALS: BP 148/75; PULSE 98; TEMP 36.9; O2SAT 94
[2017-11-23] MEDS ORDERED: NURSING VERBAL MED ORDER ONE (15:15)
[2017-11-23] MEDS ORDERED: POTASSIUM CHLORIDE 20 MEQ TABCR PO ONE (16:00)
--- NOTE | 2017-11-23 16:37 | Family Medicine Progress Note ---
Progress Note Date of Service Nov 23, 2017. Subjective Pt evaluation today including: conversation w/ patient, physical exam, chart review, conversation w/ mergers and acquisitions consultant, review of inpatient medication list Pain: mild PO Intake: full liquid diet Voiding: no voiding problems Patient was seen this afternoon and is feeling better, with minimal abdominal pain NG tube removed and eating a full liquid diet Constitutional: No fever, No chills Respiratory: No cough, No sputum, No shortness of breath Cardiovascular: No chest pain, No edema, No palpitations Abdomen: + pain, No nausea, No vomiting, No diarrhea, No GI bleeding Musculoskeletal: No joint pain, No muscle pain Male : No dysuria, No urinary frequency, No hematuria Medications Current Inpatient Medications Medications (Trade) Dose Ordered Sig/Dale Route Start Time Stop Time Status Last Admin Dose Admin Ioversol (Optiray 320) 100 ml UD PRN IV 11/21/17 20:45 11/25/17 20:44 Ondansetron HCl (Zofran Inj) 4 mg Q6H PRN IV 11/22/17 00:30 12/22/17 00:29 Tiotropium [place] (Spiriva Handihaler Inhaler) 1 puff DAILY INH 11/22/17 09:00 12/22/17 08:59 11/23/17 08:29 1 PUFF Hydralazine HCl (HydrALAZINE INJ) 10 mg Q6H PRN IV. 11/22/17 00:30 12/22/17 00:29 Morphine Sulfate (MoRPHine SULFATE INJ) 4 mg Q4H PRN IV 11/22/17 00:30 12/06/17 00:29 11/22/17 19:45 4 MG Glucagon (Glucagon Inj) 1 mg UD PRN SQ 11/22/17 19:15 12/22/17 19:14 Glucose (Glucose 40% Gel) 15-30 GRAMS 15 GRAMS... UD PRN PO 11/22/17 19:15 12/22/17 19:14 Glucose (Glucose Chew Tab) 4-8 Tablets 4 Tabl... UD PRN PO 11/22/17 19:15 12/22/17 19:14 Nystatin (Mycostatin Susp) 10 ml QID PO 11/22/17 09:00 12/02/17 08:59 11/23/17 12:23 10 ML Sodium Chloride 1,000 ml @ 100 mls/hr Q10H IV 11/22/17 00:45 12/22/17 00:44 11/23/17 09:58 100 MLS/HR Lorazepam 0.5 mg/ Syringe 1 ml @ 1 mls/min Q8H PRN IV 11/22/17 02:30 12/22/17 02:29 11/22/17 21:00 1 MLS/MIN Acetaminophen 650 mg/Empty Bag 65 ml @ 260 mls/hr Q6H PRN IV 11/22/17 08:45 12/22/17 08:44 Insulin Glargine (Lantus Solostar Pen) 15 units DAILY SC 11/23/17 09:00 12/23/17 08:59 11/23/17 08:36 15 UNITS Enoxaparin Sodium (Lovenox Inj) 40 mg DAILY SQ 11/23/17 16:00 12/23/17 15:59 UNV Insulin Aspart (novoLOG ASPART) SLIDING SCALE If C... ACHS SC 11/23/17 17:15 12/23/17 17:14 Objective Vital Signs Date Time Temp Pulse Resp B/P (MAP) Pulse Ox O2 Delivery O2 Flow Rate FiO2 11/23/17 15:20 Room Air 11/23/17 14:55 36.9 98 18 148/75 (99) 94 Room Air 11/23/17 07:41 Room Air 11/23/17 07:27 36.8 97 18 147/93 (111) 97 Room Air 11/22/17 23:20 Room Air 11/22/17 23:13 36.4 102 16 142/92 (109) 93 Room Air Physical Exam General Appearance: WD/WN, no apparent distress Neck: supple, no JVD, no carotid bruits, trachea midline Respiratory/Chest: chest non-tender, no respiratory distress, no accessory muscle use, + pertinent finding (atelectasis in the lower lobes bilaterally) Cardiovascular: regular rate, rhythm, no edema, no murmur Abdomen: normal bowel sounds, soft, + distended, + tenderness (mild right sided abdominal pain) Extremities: non-tender, no pedal edema, no calf tenderness Neurologic/Psychiatric: alert, normal mood/affect, oriented x 3 Laboratory Results Results Past 24 Hours Test 11/22/17 18:30 11/22/17 23:52 11/23/17 07:57 11/23/17 08:13 Range/Units Bedside Glucose 261 199 246 70-99 mg/dl White Blood Count 5.69 4.8-10.8 K/uL Red Blood Count 5.01 4.7-6.1 M/uL Hemoglobin 15.6 14.0-18.0 g/dL Hematocrit 46.8 42-52 % Mean Corpuscular Volume 93.4 80-100 fL Mean Corpuscular Hemoglobin 31.1 25-34 pg Mean Corpuscular Hemoglobin Concent 33.3 32-36 g/dl RDW Standard Deviation 47.0 36.4-46.3 fL RDW Coefficient of Variation 13.8 11.5-14.5 % Platelet Count 272 130-400 K/uL Mean Platelet Volume 9.9 7.4-10.4 fL Sodium Level 139 136-145 mmol/L Potassium Level 3.2 3.5-5.1 mmol/L Chloride Level 100 98-107 mmol/L Carbon Dioxide Level 23 21-32 mmol/L Anion Gap 16.0 3-11 mmol/L Blood Urea Nitrogen 8 7-18 mg/dl Creatinine 0.86 0.60-1.40 mg/dl Est Creatinine Clear Calc Drug Dose 120.2 ml/min Estimated GFR () 112.4 Estimated GFR (Non- 96.9 BUN/Creatinine Ratio 9.6 10-20 Random Glucose 276 70-99 mg/dl Calcium Level 8.3 8.5-10.1 mg/dl Test 11/23/17 15:23 Range/Units Prothrombin Time 10.6 9.0-12.0 SECONDS Prothromb Time International Ratio 1.0 0.9-1.1 Activated Partial Thromboplast Time 26.0 21.0-31.0 SECONDS Partial Thromboplastin Ratio 1.0 Assessment and Plan 56 year old male with CAD, COPD, DMII, HTN, HLD and chronic back pain admitted for small bowel obstruction SBO - CT abdo: multiple distended gas and fluid-filled loops of small bowel seen throughout the abdomen. The distal ileal loops are decompressed and there is an apparent transition point within the small bowel at the right mid abdomen - Diet advanced to full liquid diet - NGT removed - IVF NSS @ 100cc/hr, continue for now - Surgery consulted - IV ondansetron 4mg q8h PRN nausea - IV morphine 2-4mg q4h PRN pain Diarrhea - most likely secondary to viral gastroenteritis - C.diff sent out (recent abx use <2 weeks ago post derm procedure) - no bowel movement thus far Thrush - Nystatin swish and spit CAD/HTN - Restart aspirin and lisinopril - IV hydralazine 10mg q6h for SBP >160 COPD - Continue Spiriva DMII - Metformin and glimepiride held - ISS with check ac/hs - blood sugars have been elevated, will given 15 units of lantus given today---- > will give 25 units tomorrow - check blood glucose q4hrs Chronic back pain - Hold Percocet, naproxen, Flexeril - IV morphine as above Anxiety - Alprazolam and nortriptyline held - IV Ativan 0.5mg q8h PRN anxiety VTE ppx - SCDs FULL CODE Resident Physician Supervision Note: I was present with the resident during the history and exam. I discussed the case with the resident and agree with the findings and plan as documented in the note. Documented By: Ramos Otero Continued [facility] stay due to: multiple IV medications needed Discharge planning: home
[2017-11-23] MEDS: ENOXAPARIN 40 MG/0.4 ML SYR SQ SCH (21:00)
[2017-11-23] MEDS: ASPIRIN 81 MG ECTAB PO SCH (21:03)
[2017-11-23] MEDS: MoRPHine SULFATE 4 MG/ML 1 ML CARP\\VIAL IV PRN (21:19)
[2017-11-23 23:02] VITALS: BP 135/78; PULSE 86; TEMP 37.2; O2SAT 94
[2017-11-23] MEDS: ONDANSETRON INJ 2 MG/ML 2 ML VIAL IV PRN (23:51)
[2017-11-24] MEDS ORDERED: SIMETHICONE 80 MG CHEW PO PRN (01:45)
[2017-11-24] MEDS: MoRPHine SULFATE 4 MG/ML 1 ML CARP\\VIAL IV PRN (04:50)
[2017-11-24] MEDS ORDERED: NURSING VERBAL MED ORDER ONE (05:45)
--- NOTE | 2017-11-24 05:59 | Surgery Progress Note ---
Surgery Progress Note Date of Service Nov 24, 2017. Subjective NG placed recently- pt feeling better Had 3 loose bowel movements last pm, became anxious and distended feeling much better now- no pain Objective Vital Signs: Date Time Temp Pulse Resp B/P (MAP) Pulse Ox O2 Delivery O2 Flow Rate FiO2 11/23/17 23:55 Room Air 11/23/17 23:02 37.2 86 16 135/78 (97) 94 Room Air 11/23/17 15:20 Room Air 11/23/17 14:55 36.9 98 18 148/75 (99) 94 Room Air 11/23/17 07:41 Room Air 11/23/17 07:27 36.8 97 18 147/93 (111) 97 Room Air General Appearance: no apparent distress Respiratory/Chest: no respiratory distress Abdomen: non tender, + distended Laboratory Results: Results Past 24 Hours Test 11/23/17 06:09 11/23/17 07:57 11/23/17 08:13 11/23/17 12:05 Range/Units Bedside Glucose 236 246 287 70-99 mg/dl White Blood Count 5.69 4.8-10.8 K/uL Red Blood Count 5.01 4.7-6.1 M/uL Hemoglobin 15.6 14.0-18.0 g/dL Hematocrit 46.8 42-52 % Mean Corpuscular Volume 93.4 80-100 fL Mean Corpuscular Hemoglobin 31.1 25-34 pg Mean Corpuscular Hemoglobin Concent 33.3 32-36 g/dl RDW Standard Deviation 47.0 36.4-46.3 fL RDW Coefficient of Variation 13.8 11.5-14.5 % Platelet Count 272 130-400 K/uL Mean Platelet Volume 9.9 7.4-10.4 fL Sodium Level 139 136-145 mmol/L Potassium Level 3.2 3.5-5.1 mmol/L Chloride Level 100 98-107 mmol/L Carbon Dioxide Level 23 21-32 mmol/L Anion Gap 16.0 3-11 mmol/L Blood Urea Nitrogen 8 7-18 mg/dl Creatinine 0.86 0.60-1.40 mg/dl Est Creatinine Clear Calc Drug Dose 120.2 ml/min Estimated GFR () 112.4 Estimated GFR (Non- 96.9 BUN/Creatinine Ratio 9.6 10-20 Random Glucose 276 70-99 mg/dl Calcium Level 8.3 8.5-10.1 mg/dl Test 11/23/17 15:23 11/23/17 17:45 11/23/17 20:32 11/24/17 03:49 Range/Units Prothrombin Time 10.6 9.0-12.0 SECONDS Prothromb Time International Ratio 1.0 0.9-1.1 Activated Partial Thromboplast Time 26.0 21.0-31.0 SECONDS Partial Thromboplastin Ratio 1.0 Bedside Glucose 313 189 230 70-99 mg/dl Test 11/24/17 04:44 Range/Units Assessment & Plan 11/24/17- will leave NG, check labs incl Mg, Phos try to have him ambulate- some GI function with flatus, bm addendum- pt upset I didn't come back to see him and clamp NG tube- I had a discussion with him and his that I didn't feel we should clamp or remove tube with his abd distention- he is upset things are not progressing faster. I told him he may need an operation if he does not improve. They seemed to understand
[2017-11-24] MEDS: SODIUM CHLORIDE 0.9% 1000ML 1,000 ML IV SCH ×2 (06:12→15:52)
[2017-11-24] MEDS: INSULIN ASPART 100 UNITS/ML 3 ML PEN SC SCH ×3 (06:18→18:32)
[2017-11-24 07:40] VITALS: BP 151/93; PULSE 98; TEMP 36.3; O2SAT 93
[2017-11-24 07:48] LABS: CALCIUM 7.6 mg/dl (8.5-10.1); CREATININE 0.6 mg/dl (0.60-1.40); POTASSIUM 3.6 mmol/L (3.5-5.1)
[2017-11-24 07:49] LABS: PHOSPHORUS 1.7 mg/dl (2.5-4.9)
[2017-11-24] MEDS ORDERED: INSULIN ASPART 100 UNITS/ML 3 ML PEN SC SCH (08:00)
[2017-11-24] MEDS ORDERED: POTASSIUM PHOS 3 MMOL/1 ML INFUSION IV SCH (08:45)
[2017-11-24] MEDS: NYSTATIN SUSP 500,000 U/5 ML UDC PO SCH ×4 (08:58→21:17)
[2017-11-24] MEDS: TIOTROPIUM BROMIDE 5 PUFF/90 MCG INH INH SCH (08:58)
[2017-11-24] MEDS: LISINOPRIL 2.5 MG TAB PO SCH (08:58)
[2017-11-24] MEDS ORDERED: INSULIN GLARGINE SOLOSTAR 100 UNITS/ML 3 ML PEN SC SCH (09:00)
--- NOTE | 2017-11-24 09:11 | Family Medicine Progress Note ---
Progress Note Date of Service Nov 24, 2017. Subjective Pt evaluation today including: conversation w/ patient Pain: much improved Reports event last night of pain and bloating that started after having apple juice Night resident was paged and NG tube was placed back in; immediate relief Pain has resolved now and he is interested it eating again. Tolerating clear liquids passing flatus Constitutional: No fever, No chills Respiratory: No cough, No sputum, No wheezing, No shortness of breath, No dyspnea on exertion Cardiovascular: No chest pain Abdomen: No pain, No nausea, No vomiting, No diarrhea, No constipation Medications Medications (Trade) Dose Ordered Sig/Dale Route Start Time Stop Time Status Last Admin Dose Admin Aspirin (Ecotrin Tab) 81 mg HS PO 11/23/17 21:00 12/23/17 20:59 11/23/17 21:03 81 MG Simethicone (Mylicon Chew Tab) 80 mg Q6H PRN PO 11/24/17 01:45 12/24/17 01:44 11/24/17 03:54 80 MG Insulin Aspart (novoLOG ASPART) SLIDING SCALE If C... Q6 SC 11/24/17 06:00 12/24/17 05:59 11/24/17 18:32 3 UNITS Insulin Glargine (Lantus Solostar Pen) 15 units BID SC 11/24/17 09:00 12/25/17 08:59 11/24/17 10:06 15 UNITS Potassium Phosphate 15 mmol/ Sodium Chloride 255 ml @ 88 mls/hr 1030 ONCE IV 11/24/17 10:30 11/24/17 13:23 DC 11/24/17 13:13 88 MLS/HR Objective Vital Signs Vital Signs Past 12 Hours Date Time Temp Pulse Resp B/P (MAP) Pulse Ox O2 Delivery O2 Flow Rate FiO2 11/24/17 16:00 Room Air 11/24/17 15:30 36.3 93 18 146/81 (102) 95 Room Air Physical Exam General Appearance: no apparent distress Eyes: PERRL, EOMI Respiratory/Chest: lungs clear, normal breath sounds, no respiratory distress, + decreased breath sounds (at the bases) Abdomen: normal bowel sounds, + distended Extremities: non-tender, no pedal edema Neurologic/Psychiatric: alert, normal mood/affect Laboratory Results Last 24 Hours Test 11/23/17 20:32 11/24/17 03:49 11/24/17 06:00 11/24/17 06:21 Bedside Glucose 189 mg/dl 230 mg/dl 291 mg/dl Sodium Level 136 mmol/L Potassium Level 3.6 mmol/L Chloride Level 104 mmol/L Carbon Dioxide Level 22 mmol/L Anion Gap 10.0 mmol/L Blood Urea Nitrogen 5 mg/dl Creatinine 0.60 mg/dl Est Creatinine Clear Calc Drug Dose 172.3 ml/min Estimated GFR () 130.3 Estimated GFR (Non- 112.4 BUN/Creatinine Ratio 8.2 Random Glucose 285 mg/dl Calcium Level 7.6 mg/dl Phosphorus Level 1.7 mg/dl Magnesium Level 2.0 mg/dl Test 11/24/17 12:03 Bedside Glucose 209 mg/dl Assessment and Plan 56 year old male with CAD, COPD, DMII, HTN, HLD and chronic back pain admitted for small bowel obstruction. Overnight events : worsening distension and abdominal pain, NG tube back in place and doing much better. SBO - 1st CT abdo: multiple distended gas and fluid-filled loops of small bowel seen throughout the abdomen. The distal ileal loops are decompressed and there is an apparent transition point within the small bowel at the right mid abdomen - NPO, ice chips - NGT back in place, check KUB if persistent symptoms- Night team to call to surgery if worsening symptoms. - IV ondansetron 4mg q8h PRN nausea - IV morphine 2-4mg q4h PRN pain - repeat CT tomorrow per surgery - may need surgical intervention if no improvement Diarrhea - resolved - most likely secondary to viral gastroenteritis - C.diff ordered- not done - no bowel movement thus far Hypophosphatemia phos 1.7- replaced with 15 mmol Thrush - Nystatin swish and spit CAD/HTN - Restart aspirin and lisinopril - IV hydralazine 10mg q6h for SBP >160 COPD - Continue Spiriva DMII - Metformin and glimepiride held - ISS with check ac/hs - blood sugars remain elevated. Switched to 15 units BID Chronic back pain - Hold Percocet, naproxen, Flexeril - IV morphine as above Anxiety - Alprazolam and nortriptyline held - IV Ativan 0.5mg q8h PRN anxiety VTE ppx - SCDs FULL CODE Resident Physician Supervision Note: I was present with during the history and exam. I discussed the case with the resident and agree with the findings and plan as documented in the note. PLAN 1) NG tube. 2) Increase fluids. 3) CT scan in AM. Documented By: Ramos Otero
[2017-11-24] MEDS: INSULIN GLARGINE SOLOSTAR 100 UNITS/ML 3 ML PEN SC SCH ×2 (10:06→22:25)
[2017-11-24] MEDS ORDERED: POTASSIUM PHOSPHATE INJ 15 MMOL in SODIUM CHLORIDE 0.9% 250ML 250 ML IV ONE (10:30)
[2017-11-24 15:30] VITALS: BP 146/81; PULSE 93; TEMP 36.3; O2SAT 95
[2017-11-24] MEDS: ENOXAPARIN 40 MG/0.4 ML SYR SQ SCH (21:00)
[2017-11-24] MEDS: ASPIRIN 81 MG ECTAB PO SCH (21:00)
[2017-11-24] MEDS: LORAZEPAM INJ 0.5 MG in SYRINGE 0.75 ML IV PRN (21:09)
[2017-11-24 23:56] VITALS: BP 134/72; PULSE 86; TEMP 37.1; O2SAT 92
[2017-11-25] VITALS (12 sets, daily range): BP systolic 128–160; BP diastolic 73–94; PULSE 87–116; TEMP 36.5–37.1; O2SAT 90–96
[2017-11-25] MEDS: INSULIN ASPART 100 UNITS/ML 3 ML PEN SC SCH ×4 (00:16→18:57)
[2017-11-25] MEDS: SODIUM CHLORIDE 0.9% 1000ML 1,000 ML IV SCH ×3 (00:38→10:42)
[2017-11-25] MEDS ORDERED: OPTIRAY 320 IV PRN (04:15)
[2017-11-25] MEDS: MoRPHine SULFATE 4 MG/ML 1 ML CARP\\VIAL IV PRN (05:16)
[2017-11-25] MEDS: ONDANSETRON INJ 2 MG/ML 2 ML VIAL IV PRN (05:23)
--- NOTE | 2017-11-25 06:00 | Surgery Progress Note ---
Surgery Progress Note Date of Service Nov 25, 2017. Subjective NG in place- no BM- significant output from NG- taking sign ice contrast for CT placed via NG Objective Vital Signs: Date Time Temp Pulse Resp B/P (MAP) Pulse Ox O2 Delivery O2 Flow Rate FiO2 11/25/17 00:29 Room Air 11/24/17 23:56 37.1 86 14 134/72 (92) 92 Room Air 11/24/17 16:00 Room Air 11/24/17 15:30 36.3 93 18 146/81 (102) 95 Room Air 11/24/17 07:40 36.3 98 18 151/93 (112) 93 Room Air 11/24/17 07:15 Room Air General Appearance: no apparent distress Respiratory/Chest: no respiratory distress Abdomen: + distended (has some bowel sounds, some high pitched) Laboratory Results: Results Past 24 Hours Test 11/24/17 06:00 11/24/17 06:21 11/24/17 12:03 11/24/17 18:20 Range/Units Bedside Glucose 291 209 198 70-99 mg/dl Sodium Level 136 136-145 mmol/L Potassium Level 3.6 3.5-5.1 mmol/L Chloride Level 104 98-107 mmol/L Carbon Dioxide Level 22 21-32 mmol/L Anion Gap 10.0 3-11 mmol/L Blood Urea Nitrogen 5 7-18 mg/dl Creatinine 0.60 0.60-1.40 mg/dl Est Creatinine Clear Calc Drug Dose 172.3 ml/min Estimated GFR () 130.3 Estimated GFR (Non- 112.4 BUN/Creatinine Ratio 8.2 10-20 Random Glucose 285 70-99 mg/dl Calcium Level 7.6 8.5-10.1 mg/dl Phosphorus Level 1.7 2.5-4.9 mg/dl Magnesium Level 2.0 1.8-2.4 mg/dl Test 11/24/17 21:27 11/25/17 00:00 11/25/17 05:00 Range/Units Bedside Glucose 161 160 70-99 mg/dl Assessment & Plan 11/25/17- Concern for cont obstructive sxs- suspect mechanical source/ ?adhesion, ? int hernia for CT with contrast this am- may require expl lap Discussed with pt and addendum- CT shows more dilated distal small bowel pt has not had surgery prior- I feel he should undergo Lap/ lysis of adhesions, possibly other etiology. he and agree 11/24/17- will leave NG, check labs incl Mg, Phos try to have him ambulate- some GI function with flatus, bm addendum- pt upset I didn't come back to see him and clamp NG tube- I had a discussion with him and his that I didn't feel we should clamp or remove tube with his abd distention- he is upset things are not progressing faster. I told him he may need an operation if he does not improve. They seemed to understand 11/24/17- will leave NG, check labs incl Mg, Phos try to have him ambulate- some GI function with flatus, bm addendum- pt upset I didn't come back to see him and clamp NG tube- I had a discussion with him and his that I didn't feel we should clamp or remove tube with his abd distention- he is upset things are not progressing faster. I told him he may need an operation if he does not improve. They seemed to understand
--- NOTE | 2017-11-25 06:45 | DIAGNOSTIC IMAGING REPORT ---
ABD/PELVIS IV AND ORAL CONT CLINICAL HISTORY: 56 years-old Male presenting with has NG- contrast via NG, concern for small bowel obstruction. TECHNIQUE: Multidetector CT of the abdomen and pelvis was performed after the administration of oral and intravenous contrast. IV contrast: 93 mL of Optiray 320. A dose lowering technique was used consistent with the principles of ALARA (as low as reasonably achievable). COMPARISON: 11/21/2017. CT DOSE (mGy.cm): The estimated cumulative dose is 1654.69 mGy.cm. FINDINGS: Lead Ingot Molder topogram: Extensive pathologic distention of small bowel, which has a stacked configuration. Nasogastric tube terminates in the stomach. Posterior lumbar fusion hardware and interbody spacers noted. Lung bases: Minimal basilar opacities, likely atelectasis. New nodular consolidative opacity in the lingula likely atelectasis. Normal heart size. No pericardial or pleural effusion. Liver: Normal morphology. Suggestion of hepatic steatosis. No focal lesion. Patent hepatic vasculature. Biliary: No intrahepatic or extrahepatic biliary ductal dilatation. Layering hyperdensity in the gallbladder could represent vicarious excretion or sludge. Otherwise normal gallbladder. Pancreas: Mild parenchymal atrophy. Spleen: Normal. Adrenal glands: Normal. Kidneys and ureters: Mild nonspecific perinephric fat stranding. Normal renal parenchyma. No hydronephrosis. No nephrolithiasis. Ureters normal. Bladder: Normal. Pelvic organs: Prostate enlargement likely secondary to benign prostatic hyperplasia. Bowel: The appendiceal stump is normal. Pathologically distended small bowel to the level of the distal ileum. Small bowel gradually diminishes in caliber in the right lower quadrant without an abrupt transition point. Oral contrast has not yet transited to the region of caliber change. Distended small bowel smoothly transitions to less distended caliber in the up stream portion. No evidence of small bowel wall thickening or perienteric inflammatory change. There is suggestion of hypertrophy of mesenteric fat at the (series 3 image 392), suggesting a creeping fat morphology. Peritoneal cavity: No free fluid or intraperitoneal gas. Lymph nodes: Scattered subcentimeter mesenteric lymph nodes, nonspecific and likely reactive. No pathologic lymph nodes by CT size criteria. Vasculature: Aorta and IVC patent and normal in caliber. Abdominal wall: Mild body wall edema. Musculoskeletal: Postsurgical changes of the lumbar spine with bilateral transpedicular screw and kanika fixation from L3 to S1 and laminectomy defects of L4-S1. Interbody spacers at L4-5 and L5-S1. Postsurgical changes of the superficial soft tissues in the lower back. Grade 1 anterolisthesis of L5 on S1. Evidence of old screw tracks in S1. IMPRESSION: 1. Pathologic small bowel distention with gradual diminishment in caliber in the right lower quadrant. These findings suggest a partial small bowel obstruction. It is difficult to say whether this is a high-grade or low-grade partial small bowel obstruction. There is also suggestion of hypertrophy of mesenteric fat associated with some of the small bowel loops in the right lower quadrant. This could suggest a creeping fat morphology. Correlate for potential underlying history of inflammatory bowel disease. Etiology of this partial small bowel obstruction is likely adhesions. 2. No other evidence of acute intra-abdominal pathology. 3. Suggestion of hepatic steatosis. 4. Postsurgical changes of lumbar fusion. Electronically signed by: Edwardo Darden M.D. 11/25/2017 6:43 AM Dictated Date/Time: 11/25/2017 6:32 AM
[2017-11-25 06:52] LABS: HEMATOCRIT 41.3 % (42-52); HEMOGLOBIN 13.7 g/dL (14.0-18.0); MEAN CELL VOLUME 92.2 fL (80-100); MEAN CORPUSCULAR HEMOGLOBIN 30.6 pg (25-34); MEAN CORPUSCULAR HGB CONC 33.2 g/dl (32-36); MEAN PLATELET VOLUME 9.4 fL (7.4-10.4); PLATELET COUNT 246 K/uL (130-400); RED CELL DISTRIBUTION WIDTH CV 13.7 % (11.5-14.5); WHITE BLOOD COUNT 5.46 K/uL (4.8-10.8)
[2017-11-25 07:28] LABS: CALCIUM 7.7 mg/dl (8.5-10.1); CREATININE 0.57 mg/dl (0.60-1.40); POTASSIUM 3.6 mmol/L (3.5-5.1)
[2017-11-25] MEDS ORDERED: LIDOCAINE HCL 2% 2 ML VIAL (20MG/ML) ONE (07:29)
[2017-11-25] MEDS ORDERED: EpHEDrine SULFATE INJ 50 MG/ML AMP ONE (07:29)
[2017-11-25] MEDS ORDERED: ONDANSETRON INJ 2 MG/ML 2 ML VIAL ONE (07:29)
[2017-11-25] MEDS ORDERED: PHENYLEPHRINE HCL INJ 10 MG/ML VIAL ONE (07:29)
[2017-11-25] MEDS ORDERED: CEFOXITIN IV 2,000 MG in DEXTROSE 5% 50ML 50 ML IV STA (07:29)
[2017-11-25] MEDS ORDERED: SUCCINYLCHOLINE CHLORIDE 20 MG/ML 10 ML VIAL IV ONE (07:29)
[2017-11-25] MEDS ORDERED: DEXAMETHASONE SOD INJ 4 MG/ML VIAL ONE (07:29)
[2017-11-25] MEDS ORDERED: NEOSTIGMINE METHYLSULFATE 5 MG/5 ML SYR ONE (07:29)
[2017-11-25] MEDS ORDERED: PROPOFOL IV EMULSION 10 MG/ML 20 ML VIAL IV ONE (07:29)
[2017-11-25] MEDS ORDERED: MIDAZOLAM HCL 1 MG/ML 2ML VIAL ONE (07:29)
[2017-11-25] MEDS ORDERED: GLYCOPYRROLATE INJ 0.2 MG/ML VIAL ONE (07:29)
[2017-11-25] MEDS ORDERED: FENTANYL CITRATE INJ 50 MCG/1 ML 2 ML VIAL ONE ×2 (07:29)
[2017-11-25] MEDS: INSULIN GLARGINE SOLOSTAR 100 UNITS/ML 3 ML PEN SC SCH ×2 (08:00→21:38)
[2017-11-25] MEDS: NYSTATIN SUSP 500,000 U/5 ML UDC PO SCH ×5 (08:00→21:00)
[2017-11-25] MEDS ORDERED: CEFOXITIN IV 2,000 MG in DEXTROSE 5% 50ML 50 ML IV SCH (08:00)
[2017-11-25] MEDS: LISINOPRIL 2.5 MG TAB PO SCH (08:00)
--- NOTE | 2017-11-25 08:42 | Family Medicine Progress Note ---
Progress Note Date of Service Nov 25, 2017. Subjective Pt evaluation today including: conversation w/ patient Voiding: no voiding problems Doesn't feel that great- continues to have some abdominal discomfort Upset about having to go to surgery this morning but was expecting it. Constitutional: No fever, No chills Respiratory: No cough, No sputum, No wheezing, No shortness of breath, No dyspnea on exertion Cardiovascular: No chest pain Abdomen: + pain, No nausea, No vomiting, No diarrhea, No constipation Male : No dysuria, No urinary frequency Medications Medications Administered Medications (Trade) Dose Ordered Sig/Dale Route Start Time Stop Time Status Last Admin Dose Admin Sodium Chloride 1,000 ml @ 999 mls/hr Q1H1M STAT IV 11/21/17 20:30 11/21/17 21:30 DC 11/21/17 20:30 999 MLS/HR Morphine Sulfate (MoRPHine SULFATE INJ) 6 mg NOW STAT IV 11/21/17 22:16 11/21/17 22:17 DC 11/21/17 22:23 6 MG Ondansetron HCl (Zofran Inj) 4 mg NOW STAT IV 11/21/17 22:16 11/21/17 22:17 DC 11/21/17 22:16 4 MG Morphine Sulfate (MoRPHine SULFATE INJ) 4 mg NOW STAT IV 11/21/17 23:25 11/21/17 23:26 DC 11/21/17 23:38 4 MG Sodium Chloride 500 ml @ 999 mls/hr Q31M STAT IV 11/21/17 23:36 11/22/17 00:06 DC 11/21/17 23:36 999 MLS/HR Ondansetron HCl (Zofran Inj) 4 mg Q6H PRN IV 11/22/17 00:30 12/22/17 00:29 11/25/17 05:23 4 MG Tiotropium [place] (Spiriva Handihaler Inhaler) 1 puff DAILY INH 11/22/17 09:00 12/22/17 08:59 11/23/17 08:29 1 PUFF Morphine Sulfate (MoRPHine SULFATE INJ) 4 mg Q4H PRN IV 11/22/17 00:30 12/06/17 00:29 11/25/17 05:16 4 MG Insulin Aspart (novoLOG ASPART) SLIDING SCALE If C... Q6 SC 11/22/17 02:30 11/23/17 15:08 DC 11/23/17 12:21 7 UNITS Nystatin (Mycostatin Susp) 10 ml QID PO 11/22/17 09:00 12/02/17 08:59 11/24/17 21:17 10 ML Sodium Chloride 1,000 ml @ 125 mls/hr Q8H IV 11/22/17 00:45 12/22/17 00:44 11/25/17 00:38 125 MLS/HR Lorazepam 0.5 mg/ Syringe 1 ml @ 1 mls/min Q8H PRN IV 11/22/17 02:30 12/22/17 02:29 11/24/17 21:09 1 MLS/MIN Insulin Glargine (Lantus Solostar Pen) 15 units DAILY SC 11/23/17 09:00 11/23/17 16:31 DC 11/23/17 08:36 15 UNITS Insulin Aspart (novoLOG ASPART) SLIDING SCALE If C... ACHS SC 11/23/17 17:15 11/24/17 06:08 DC 11/23/17 21:12 3 UNITS Potassium Chloride (Klor-Con Tab) 40 meq NOW ONCE PO 11/23/17 16:00 11/23/17 16:01 DC 11/23/17 16:19 40 MEQ Aspirin (Ecotrin Tab) 81 mg HS PO 11/23/17 21:00 12/23/17 20:59 11/23/17 21:03 81 MG Simethicone (Mylicon Chew Tab) 80 mg Q6H PRN PO 11/24/17 01:45 12/24/17 01:44 11/24/17 03:54 80 MG Insulin Aspart (novoLOG ASPART) SLIDING SCALE If C... Q6 SC 11/24/17 06:00 12/24/17 05:59 11/25/17 05:49 1 UNITS Insulin Glargine (Lantus Solostar Pen) 15 units BID SC 11/24/17 09:00 12/25/17 08:59 11/24/17 22:25 15 UNITS Potassium Phosphate 15 mmol/ Sodium Chloride 255 ml @ 88 mls/hr 1030 ONCE IV 11/24/17 10:30 11/24/17 13:23 DC 11/24/17 13:13 88 MLS/HR Objective Vital Signs Vital Signs Past 12 Hours Date Time Temp Pulse Resp B/P (MAP) Pulse Ox O2 Delivery O2 Flow Rate FiO2 11/25/17 07:15 36.8 87 18 128/73 (91) 93 Room Air 11/25/17 00:29 Room Air 11/24/17 23:56 37.1 86 14 134/72 (92) 92 Room Air Physical Exam General Appearance: no apparent distress, + pertinent finding (ng tube in place ) Eyes: PERRL ENT: hearing grossly normal Respiratory/Chest: lungs clear, normal breath sounds, no respiratory distress, no accessory muscle use Cardiovascular: regular rate, rhythm, no edema, no murmur Abdomen: + abnormal bowel sounds (hypoactive), + distended Extremities: non-tender, no pedal edema, no calf tenderness Neurologic/Psychiatric: alert, normal mood/affect Laboratory Results Last 24 Hours Test 11/24/17 18:20 11/24/17 21:27 11/25/17 00:00 11/25/17 05:45 Bedside Glucose 198 mg/dl 161 mg/dl 160 mg/dl 162 mg/dl Test 11/25/17 06:18 11/25/17 10:54 White Blood Count 5.46 K/uL Red Blood Count 4.48 M/uL Hemoglobin 13.7 g/dL Hematocrit 41.3 % Mean Corpuscular Volume 92.2 fL Mean Corpuscular Hemoglobin 30.6 pg Mean Corpuscular Hemoglobin Concent 33.2 g/dl RDW Standard Deviation 46.0 fL RDW Coefficient of Variation 13.7 % Platelet Count 246 K/uL Mean Platelet Volume 9.4 fL Sodium Level 138 mmol/L Potassium Level 3.6 mmol/L Chloride Level 105 mmol/L Carbon Dioxide Level 25 mmol/L Anion Gap 8.0 mmol/L Blood Urea Nitrogen 5 mg/dl Creatinine 0.57 mg/dl Est Creatinine Clear Calc Drug Dose 181.3 ml/min Estimated GFR () 133.0 Estimated GFR (Non- 114.8 BUN/Creatinine Ratio 9.1 Random Glucose 179 mg/dl Calcium Level 7.7 mg/dl Phosphorus Level 2.0 mg/dl Magnesium Level 2.1 mg/dl Bedside Glucose 180 mg/dl Assessment and Plan 56 year old male with CAD, COPD, DMII, HTN, HLD and chronic back pain admitted for small bowel obstruction. NG tube was placed back in yesterday. Patient continues to have some discomfort PSBO - 1st CT abdo: multiple distended gas and fluid-filled loops of small bowel seen throughout the abdomen. The distal ileal loops are decompressed and there is an apparent transition point within the small bowel at the right mid abdomen - 11/25/2017: Repeat CT abd /pelvis this morning concerning for PSBO 2/2 adhesions. - NPO, ice chips - Patient will be taken to OR this morning for EX Lap- per surgery - IV ondansetron 4mg q8h PRN nausea - IV morphine 2-4mg q4h PRN pain Diarrhea - resolved Hypophosphatemia phos 2.0 Thrush - Nystatin swish and spit CAD/HTN - aspirin and lisinopril - IV hydralazine 10mg q6h for SBP >160 COPD - Continue Spiriva DMII - Metformin and glimepiride held - ISS with check ac/hs - blood sugars better controlled with 15 units BID Chronic back pain - Hold Percocet, naproxen, Flexeril - IV morphine as above Anxiety - Alprazolam and nortriptyline held - IV Ativan 0.5mg q8h PRN anxiety VTE ppx - SCDs, ambulation FULL CODE Resident Physician Supervision Note: I interviewed and examined the patient. Discussed with Dr. Bruno and agree with findings and plan as documented in the note. Any exceptions or clarifications are listed here: 56-year-old male with small bowel obstruction is seen postoperatively approximate 1 hour after his return to the floor. He is awake, alert, and oriented. 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 NG tube, Henry catheter, and nasal oxygen are in place. PLAN 1) appreciate surgical orders 2) IV fluids on by mouth; replete electrolytes 3) monitor blood pressure Documented By: Ramos Otero
[2017-11-25] MEDS: TIOTROPIUM BROMIDE 5 PUFF/90 MCG INH INH SCH (09:00)
--- NOTE | 2017-11-25 10:31 | [facility] Operative Report ---
Operative Report Operative Date Nov 25, 2017. Pre-Operative Diagnosis Small Bowel Obstruction Post-Operative Diagnosis Small Bowel Obstruction, adhesions Procedure(s) Performed Exploratory Laparotomy, Lysis of Adhesions, Repair of Umbilical Hernia Surgeon Dr. Milligan Delivery Truck Driver Surgeon(s) Christine Covarrubias PA-C Estimated Blood Loss 20 ml Findings pt had several areas of adhesions involving the distal ileum and mesentery causing bowel obstruction small umb hernia Specimens Permanent Specimen A: Hernia Sac and Contents Drains 1/2 in jenniffer to sub cu Anesthesia Type General Complication(s) none Disposition Recovery Room / PACU I attest to the content of the Intraoperative Record and any orders documented therein. Any exceptions are noted below.
[2017-11-25] MEDS ORDERED: LABETALOL HCL IV 5 MG/ML 20ML IV PRN (10:45)
[2017-11-25] MEDS ORDERED: ONDANSETRON INJ 2 MG/ML 2 ML VIAL IV PRN (10:45)
[2017-11-25] MEDS ORDERED: NALOXONE HCL 0.4 MG/1 ML VIAL/CARP IV PRN ×2 (10:45)
[2017-11-25] MEDS ORDERED: PROMETHAZINE HCL INJ 12.5 MG in SODIUM CHLORIDE 0.9% 50ML 50 ML IV PRN (10:45)
[2017-11-25] MEDS ORDERED: ATROPINE SULFATE 0.1 MG/ML 5ML SYR IV PRN (10:45)
[2017-11-25] MEDS ORDERED: FLUMAZENIL 0.1 MG/1 ML 10 ML VIAL IV PRN (10:45)
[2017-11-25] MEDS ORDERED: EpHEDrine SULFATE INJ 50 MG/ML AMP IV PRN (10:45)
[2017-11-25] MEDS ORDERED: HYDROmorphone INJ 1 MG/ML SYR ONE ×3 (10:55→11:40)
[2017-11-25] MEDS: HYDROmorphone INJ 1 MG/ML SYR IV PRN ×12 (10:55→11:56)
[2017-11-25] MEDS ORDERED: HYDROmorphone INJ 0.5 MG/0.5 ML SYR IV PRN (11:00)
[2017-11-25] MEDS ORDERED: HYDROmorphone INJ 2 MG/ML SYR/VIAL IV PRN (11:00)
--- NOTE | 2017-11-25 11:30 | OPERATIVE REPORT ---
DATE OF OPERATION: 11/25/2017 NAME OF OPERATION: Exploratory laparotomy with lysis of adhesions and umbilical hernia repair. PREOPERATIVE DIAGNOSIS: Small-bowel obstruction. POSTOPERATIVE DIAGNOSIS: Same. STAFF SURGEON: Dr. Francisco Milligan. EQUIPMENT DETAILER: Christine Raygoza PA-C ANESTHESIA: General. DESCRIPTION OF PROCEDURE: The patient was brought into the operating room and placed on the operating room table in supine position. NG tube was in place. Henry catheter was placed. Pneumatic stockings were in place. The patient's abdomen was prepped and draped in usual fashion. He was morbidly obese. An incision was made just above and below the umbilicus, carrying dissection down through significant adipose tissue and then entering the abdominal cavity encountering significant serous fluid, which was consistent with his obstruction. It was apparent, he had dilated small bowel proximally and this bowel was dilated and hemorrhagic, but it was not significantly ischemic. Tracing the small bowel proximally, I found no significant abnormalities except dilated bowel and when I went distal, I found that in the ileum, there was not a specific transition point, but there were several areas, approximately 3-4 different areas, where there were adhesions of the serosa of the ileum to the mesentery causing stenoses at these areas, which were causing the small-bowel obstruction. There were no masses or evidence of any infection, but these areas were on both sides of the ileum more distally on the medial side. These were easily taken down and the ileum was not resected. It did appear to be wide open in these areas and relatively normal. There was no fat wrapping or creeping noted or thickening, which would indicate inflammatory bowel disease. At this point, the abdomen was irrigated and then the posterior fascia and peritoneum in the lower part of the incision was closed with running #1 chromic catgut suture and then the fascia was reapproximated using both running and interrupted #1 PDS suture. The patient did have a small 1.5-cm umbilical hernia, which was dissected free and then closed. I did use a #1 Ethibond suture at this level. A 0.5-inch [place] drain was placed into the subcutaneous space, secured to the skin using 4-0 nylon suture. Subcutaneous tissue was reapproximated using 2-0 plain catgut suture and then the skin reapproximated using himanshu and 3-0 nylon suture. As a note, my after school program assistant helped with prepping, draping, entering the abdominal cavity, lysing the adhesions, closing the abdomen and placing the dressing. I attest to the content of the Intraoperative Record and any orders documented therein. Any exception s are noted below.
--- NOTE | 2017-11-25 11:32 | Anesthesiology Progress Note ---
Anesthesia Post Op Note Date & Time Nov 25, 2017 at 11:32 Vital Signs Pain Intensity: 7.0 Vital Signs Past 12 Hours Date Time Temp Pulse Resp B/P (MAP) Pulse Ox O2 Delivery O2 Flow Rate FiO2 11/25/17 07:15 36.8 87 18 128/73 (91) 93 Room Air 11/25/17 00:29 Room Air 11/24/17 23:56 37.1 86 14 134/72 (92) 92 Room Air Notes Mental Status: alert / awake / arousable, participated in evaluation Pt Amnestic to Procedure: Yes Nausea / Vomiting: adequately controlled Pain: adequately controlled Airway Patency, RR, SpO2: stable & adequate BP & HR: stable & adequate Hydration State: stable & adequate Anesthetic Complications: no major complications apparent
[2017-11-25] MEDS ORDERED: LABETALOL HCL IV 5 MG/ML 20ML IV ONE (11:37)
[2017-11-25] MEDS ORDERED: D5W AND 1/2NSS + 20MEQ KCL 1,000 ML IV SCH (12:00)
[2017-11-25] MEDS: HYDROmorphone HCL 0.5MG/ML 50 ML CASSETTE IV PRN ×4 (12:03→23:25)
[2017-11-25] MEDS: CEFOXITIN IV 1,000 MG in DEXTROSE 5% 50ML 50 ML IV SCH (16:58)
[2017-11-25] MEDS ORDERED: NURSING VERBAL MED ORDER ONE (18:30)
[2017-11-25] MEDS: NSS + 20MEQ KCL 1000ML 1,000 ML IV SCH (18:47)
[2017-11-25] MEDS: ASPIRIN 81 MG ECTAB PO SCH (21:00)
[2017-11-25] MEDS: LORAZEPAM INJ 0.5 MG in SYRINGE 0.75 ML IV PRN (22:11)
[2017-11-26] VITALS (12 sets, daily range): BP systolic 109–160; BP diastolic 75–98; PULSE 110–134; TEMP 36.4–37.1; O2SAT 90–95; Ht 177.8 cm; Wt 113.2 kg
[2017-11-26] MEDS: CEFOXITIN IV 1,000 MG in DEXTROSE 5% 50ML 50 ML IV SCH ×2 (00:54→08:22)
[2017-11-26] MEDS: NSS + 20MEQ KCL 1000ML 1,000 ML IV SCH ×3 (03:11→19:49)
[2017-11-26 05:13] LABS: HEMATOCRIT 44.2 % (42-52); HEMOGLOBIN 14.8 g/dL (14.0-18.0); MEAN CELL VOLUME 91.5 fL (80-100); MEAN CORPUSCULAR HEMOGLOBIN 30.6 pg (25-34); MEAN CORPUSCULAR HGB CONC 33.5 g/dl (32-36); MEAN PLATELET VOLUME 9.5 fL (7.4-10.4); NUCLEATED RED BLOOD CELL ABS 0.03 K/uL (0-0); PLATELET COUNT 287 K/uL (130-400); RED CELL DISTRIBUTION WIDTH CV 13.8 % (11.5-14.5); RED CELL DISTRIBUTION WIDTH SD 46.1 fL (36.4-46.3); WHITE BLOOD COUNT 8.44 K/uL (4.8-10.8)
[2017-11-26 05:31] LABS: CALCIUM 7.6 mg/dl (8.5-10.1); CREATININE 0.63 mg/dl (0.60-1.40); PHOSPHORUS 2.4 mg/dl (2.5-4.9); POTASSIUM 4.1 mmol/L (3.5-5.1)
--- NOTE | 2017-11-26 06:13 | Surgery Progress Note ---
Surgery Progress Note Date of Service Nov 26, 2017. Subjective awake , alert- taking a lot of ice no acute chgs Objective Vital Signs: Date Time Temp Pulse Resp B/P (MAP) Pulse Ox O2 Delivery O2 Flow Rate FiO2 11/26/17 03:05 36.9 115 16 124/86 (99) 90 Room Air 11/26/17 00:45 91 Nasal Cannula 2.0 11/25/17 23:31 37.1 115 16 145/88 (107) 90 Room Air 11/25/17 22:19 116 94 Nasal Cannula 2.0 11/25/17 19:20 37.1 114 18 91 Room Air 11/25/17 18:51 133/85 (101) 93 Room Air 11/25/17 16:00 Nasal Cannula 4.0 11/25/17 15:10 36.5 106 18 160/90 (113) 95 Nasal Cannula 4.0 11/25/17 14:20 104 18 151/82 (105) 92 Nasal Cannula 4.0 11/25/17 13:15 102 18 156/82 (106) 91 Nasal Cannula 4.0 11/25/17 12:56 96 Nasal Cannula 4.0 11/25/17 12:53 96 Nasal Cannula 4.0 11/25/17 12:45 97 18 129/83 (98) 92 Nasal Cannula 4.0 11/25/17 12:15 36.7 96 18 154/94 (114) 96 Nasal Cannula 2.0 11/25/17 12:00 90 12 119/76 93 Nasal Cannula 4 11/25/17 11:50 95 14 133/83 95 Nasal Cannula 4 11/25/17 11:40 36.5 102 16 150/103 94 Nasal Cannula 4 11/25/17 11:30 102 20 156/91 93 Nasal Cannula 4 11/25/17 11:20 95 16 155/89 94 Nasal Cannula 4 11/25/17 11:10 90 18 155/91 95 Oxymask 15 11/25/17 11:00 93 20 157/95 93 Oxymask 15 11/25/17 10:50 36.2 95 16 172/94 95 Oxymask 15 11/25/17 07:15 36.8 87 18 128/73 (91) 93 Room Air General Appearance: no apparent distress Respiratory/Chest: no respiratory distress Abdomen: + distended (decreased bowel sounds) Incision(s): intact, drainage (expected drainage) Laboratory Results: Results Past 24 Hours Test 11/25/17 06:18 11/25/17 10:54 11/25/17 18:05 11/25/17 20:40 Range/Units White Blood Count 5.46 4.8-10.8 K/uL Red Blood Count 4.48 4.7-6.1 M/uL Hemoglobin 13.7 14.0-18.0 g/dL Hematocrit 41.3 42-52 % Mean Corpuscular Volume 92.2 80-100 fL Mean Corpuscular Hemoglobin 30.6 25-34 pg Mean Corpuscular Hemoglobin Concent 33.2 32-36 g/dl RDW Standard Deviation 46.0 36.4-46.3 fL RDW Coefficient of Variation 13.7 11.5-14.5 % Platelet Count 246 130-400 K/uL Mean Platelet Volume 9.4 7.4-10.4 fL Sodium Level 138 136-145 mmol/L Potassium Level 3.6 3.5-5.1 mmol/L Chloride Level 105 98-107 mmol/L Carbon Dioxide Level 25 21-32 mmol/L Anion Gap 8.0 3-11 mmol/L Blood Urea Nitrogen 5 7-18 mg/dl Creatinine 0.57 0.60-1.40 mg/dl Est Creatinine Clear Calc Drug Dose 181.3 ml/min Estimated GFR () 133.0 Estimated GFR (Non- 114.8 BUN/Creatinine Ratio 9.1 10-20 Random Glucose 179 70-99 mg/dl Calcium Level 7.7 8.5-10.1 mg/dl Phosphorus Level 2.0 2.5-4.9 mg/dl Magnesium Level 2.1 1.8-2.4 mg/dl Bedside Glucose 180 223 197 70-99 mg/dl Test 11/25/17 23:32 11/26/17 04:54 11/26/17 05:59 Range/Units Bedside Glucose 149 70-99 mg/dl White Blood Count 8.44 4.8-10.8 K/uL Red Blood Count 4.83 4.7-6.1 M/uL Hemoglobin 14.8 14.0-18.0 g/dL Hematocrit 44.2 42-52 % Mean Corpuscular Volume 91.5 80-100 fL Mean Corpuscular Hemoglobin 30.6 25-34 pg Mean Corpuscular Hemoglobin Concent 33.5 32-36 g/dl RDW Standard Deviation 46.1 36.4-46.3 fL RDW Coefficient of Variation 13.8 11.5-14.5 % Platelet Count 287 130-400 K/uL Mean Platelet Volume 9.5 7.4-10.4 fL Nucleated RBC Absolute Count (auto) 0.03 0-0 K/uL Nucleated Red Blood Cells % 0.4 % Sodium Level 139 136-145 mmol/L Potassium Level 4.1 3.5-5.1 mmol/L Chloride Level 105 98-107 mmol/L Carbon Dioxide Level 25 21-32 mmol/L Anion Gap 9.0 3-11 mmol/L Blood Urea Nitrogen 5 7-18 mg/dl Creatinine 0.63 0.60-1.40 mg/dl Est Creatinine Clear Calc Drug Dose 164.1 ml/min Estimated GFR () 127.7 Estimated GFR (Non- 110.2 BUN/Creatinine Ratio 7.9 10-20 Random Glucose 180 70-99 mg/dl Calcium Level 7.6 8.5-10.1 mg/dl Phosphorus Level 2.4 2.5-4.9 mg/dl Magnesium Level 2.0 1.8-2.4 mg/dl Assessment & Plan 11/26/17- s/p exploratory laparotomy, lysis of adhesions expect prolonged ileus, cont ice only and NG. gates out. check labs. expect 5-7 days addnl in hospital 11/25/17- Concern for cont obstructive sxs- suspect mechanical source/ ?adhesion, ? int hernia for CT with contrast this am- may require expl lap Discussed with pt and addendum- CT shows more dilated distal small bowel pt has not had surgery prior- I feel he should undergo Lap/ lysis of adhesions, possibly other etiology. he and agree 11/24/17- will leave NG, check labs incl Mg, Phos try to have him ambulate- some GI function with flatus, bm addendum- pt upset I didn't come back to see him and clamp NG tube- I had a discussion with him and his that I didn't feel we should clamp or remove tube with his abd distention- he is upset things are not progressing faster. I told him he may need an operation if he does not improve. They seemed to understand 11/25/17- Concern for cont obstructive sxs- suspect mechanical source/ ?adhesion, ? int hernia for CT with contrast this am- may require expl lap Discussed with pt and addendum- CT shows more dilated distal small bowel pt has not had surgery prior- I feel he should undergo Lap/ lysis of adhesions, possibly other etiology. he and agree 11/24/17- will leave NG, check labs incl Mg, Phos try to have him ambulate- some GI function with flatus, bm addendum- pt upset I didn't come back to see him and clamp NG tube- I had a discussion with him and his that I didn't feel we should clamp or remove tube with his abd distention- he is upset things are not progressing faster. I told him he may need an operation if he does not improve. They seemed to understand
[2017-11-26] MEDS ORDERED: NURSING VERBAL MED ORDER ONE (06:30)
[2017-11-26] MEDS: INSULIN ASPART 100 UNITS/ML 3 ML PEN SC SCH ×5 (06:36→23:15)
[2017-11-26] MEDS: LORAZEPAM INJ 0.5 MG in SYRINGE 0.75 ML IV PRN (06:41)
[2017-11-26] MEDS: TIOTROPIUM BROMIDE 5 PUFF/90 MCG INH INH SCH (08:53)
[2017-11-26] MEDS: NYSTATIN SUSP 500,000 U/5 ML UDC PO SCH ×4 (08:54→21:00)
[2017-11-26] MEDS: ENOXAPARIN 40 MG/0.4 ML SYR SQ SCH ×2 (08:55→09:00)
[2017-11-26] MEDS: INSULIN GLARGINE SOLOSTAR 100 UNITS/ML 3 ML PEN SC SCH ×2 (08:58→23:16)
[2017-11-26] MEDS: SODIUM CHLORIDE 0.9% 1000ML 1,000 ML IV SCH (10:02)
--- NOTE | 2017-11-26 10:25 | Family Medicine Progress Note ---
Progress Note Date of Service Nov 26, 2017. Subjective Pt evaluation today including: conversation w/ patient, conversation w/ family , physical exam, chart review, conversation w/ organization development consultant, review of inpatient medication list Pain: 8-9/10 PO Intake: NPO Voiding: no voiding problems Patient states that he is in pain and the nurses tried to walk him but he refused Did not want his lovenox shot this morning, I encouraged him to do so to prevent clots Patient says he is having 8-9/10 pain and I instructed him to ask for medications when he needs it Constitutional: No fever, No chills Respiratory: + cough, No sputum, No shortness of breath Cardiovascular: No chest pain, No edema, No palpitations Abdomen: + pain, No nausea, No vomiting, No diarrhea, No constipation, No GI bleeding Musculoskeletal: No joint pain, No muscle pain, No calf pain Male : No dysuria, No urinary frequency, No hematuria Skin: No rash, No itch, No new/changing skin lesions Medications Current Inpatient Medications Medications (Trade) Dose Ordered Sig/Dale Route Start Time Stop Time Status Last Admin Dose Admin Ondansetron HCl (Zofran Inj) 4 mg Q6H PRN IV 11/22/17 00:30 12/22/17 00:29 11/25/17 05:23 4 MG Tiotropium [place] (Spiriva Handihaler Inhaler) 1 puff DAILY INH 11/22/17 09:00 12/22/17 08:59 11/26/17 08:53 1 PUFF Hydralazine HCl (HydrALAZINE INJ) 10 mg Q6H PRN IV. 11/22/17 00:30 12/22/17 00:29 Glucagon (Glucagon Inj) 1 mg UD PRN SQ 11/22/17 19:15 12/22/17 19:14 Glucose (Glucose 40% Gel) 15-30 GRAMS 15 GRAMS... UD PRN PO 11/22/17 19:15 12/22/17 19:14 Glucose (Glucose Chew Tab) 4-8 Tablets 4 Tabl... UD PRN PO 11/22/17 19:15 12/22/17 19:14 Nystatin (Mycostatin Susp) 10 ml QID PO 11/22/17 09:00 12/02/17 08:59 11/26/17 08:54 10 ML Lorazepam 0.5 mg/ Syringe 1 ml @ 1 mls/min Q8H PRN IV 11/22/17 02:30 12/22/17 02:29 11/26/17 06:41 1 MLS/MIN Acetaminophen 650 mg/Empty Bag 65 ml @ 260 mls/hr Q6H PRN IV 11/22/17 08:45 12/22/17 08:44 Aspirin (Ecotrin Tab) 81 mg HS PO 11/23/17 21:00 12/23/17 20:59 11/23/17 21:03 81 MG Insulin Aspart (novoLOG ASPART) SLIDING SCALE If C... Q6 SC 11/24/17 06:00 12/24/17 05:59 11/26/17 06:36 1 UNITS Insulin Glargine (Lantus Solostar Pen) 15 units BID SC 11/24/17 09:00 12/25/17 08:59 11/26/17 08:58 15 UNITS Ioversol (Optiray 320) 100 ml UD PRN IV 11/25/17 04:15 11/29/17 04:14 Enoxaparin Sodium (Lovenox Inj) 40 mg QAM SQ 11/26/17 09:00 12/26/17 08:59 Promethazine HCl 25 mg/Sodium Chloride 51 ml @ 204 mls/hr Q6H PRN IV 11/25/17 10:45 12/25/17 10:44 Ondansetron HCl (Zofran Inj) 4 mg Q6H PRN IV 11/25/17 10:45 12/25/17 10:44 Naloxone HCl (Narcan Inj) 0.1 mg Q5M PRN IV 11/25/17 10:45 12/25/17 10:44 Hydromorphone HCl (Dilaudid Cuprous Chloride Operator) 25 mg PRN PRN IV 11/25/17 10:45 12/09/17 10:44 11/25/17 23:25 25 MG Sodium Chloride 1,000 ml @ 15 mls/hr Q24H IV 11/25/17 10:42 12/25/17 10:41 Hydromorphone HCl (Dilaudid Inj) 0.5 mg Q3H PRN IV 11/25/17 11:00 12/09/17 10:59 Future Hold Hydromorphone HCl (Dilaudid Inj) 1 mg Q3H PRN IV 11/25/17 11:00 12/09/17 10:59 Future Hold Hydromorphone HCl (Dilaudid Inj) 2 mg Q3H PRN IV 11/25/17 11:00 12/09/17 10:59 Future Hold Potassium Chloride/Sodium Chloride 1,000 ml @ 125 mls/hr Q8H IV 11/25/17 19:00 12/25/17 18:59 11/26/17 03:11 125 MLS/HR Objective Vital Signs Date Time Temp Pulse Resp B/P (MAP) Pulse Ox O2 Delivery O2 Flow Rate FiO2 11/26/17 09:52 93 Room Air 11/26/17 08:06 37.1 120 17 160/98 (118) 93 Room Air 11/26/17 06:17 36.4 134 16 126/86 (99) 94 Room Air 11/26/17 03:05 36.9 115 16 124/86 (99) 90 Room Air 11/26/17 00:45 91 Nasal Cannula 2.0 11/25/17 23:31 37.1 115 16 145/88 (107) 90 Room Air 11/25/17 22:19 116 94 Nasal Cannula 2.0 11/25/17 19:20 37.1 114 18 91 Room Air 11/25/17 18:51 133/85 (101) 93 Room Air 11/25/17 16:00 Nasal Cannula 4.0 11/25/17 15:10 36.5 106 18 160/90 (113) 95 Nasal Cannula 4.0 11/25/17 14:20 104 18 151/82 (105) 92 Nasal Cannula 4.0 11/25/17 13:15 102 18 156/82 (106) 91 Nasal Cannula 4.0 11/25/17 12:56 96 Nasal Cannula 4.0 11/25/17 12:53 96 Nasal Cannula 4.0 11/25/17 12:45 97 18 129/83 (98) 92 Nasal Cannula 4.0 11/25/17 12:15 36.7 96 18 154/94 (114) 96 Nasal Cannula 2.0 11/25/17 12:00 90 12 119/76 93 Nasal Cannula 4 11/25/17 11:50 95 14 133/83 95 Nasal Cannula 4 11/25/17 11:40 36.5 102 16 150/103 94 Nasal Cannula 4 11/25/17 11:30 102 20 156/91 93 Nasal Cannula 4 11/25/17 11:20 95 16 155/89 94 Nasal Cannula 4 11/25/17 11:10 90 18 155/91 95 Oxymask 15 11/25/17 11:00 93 20 157/95 93 Oxymask 15 11/25/17 10:50 36.2 95 16 172/94 95 Oxymask 15 Physical Exam General Appearance: WD/WN, no apparent distress, + obese, + pertinent finding ( NG tube in place) ENT: hearing grossly normal, pharynx normal Neck: supple, no JVD, no carotid bruits Respiratory/Chest: lungs clear, no respiratory distress, no accessory muscle use Cardiovascular: no murmur, + tachycardia, + pertinent finding (no murmurs, regular rhythm) Abdomen: normal bowel sounds, + distended, + tenderness (diffuse tenderness), + pertinent finding (central bandage over abdomen) Extremities: non-tender, no calf tenderness, normal capillary refill Neurologic/Psychiatric: alert, oriented x 3 Laboratory Results Results Past 24 Hours Test 11/25/17 10:54 11/25/17 18:05 11/25/17 20:40 11/25/17 23:32 Range/Units Bedside Glucose 180 223 197 149 70-99 mg/dl Test 11/26/17 04:54 11/26/17 05:59 Range/Units White Blood Count 8.44 4.8-10.8 K/uL Red Blood Count 4.83 4.7-6.1 M/uL Hemoglobin 14.8 14.0-18.0 g/dL Hematocrit 44.2 42-52 % Mean Corpuscular Volume 91.5 80-100 fL Mean Corpuscular Hemoglobin 30.6 25-34 pg Mean Corpuscular Hemoglobin Concent 33.5 32-36 g/dl RDW Standard Deviation 46.1 36.4-46.3 fL RDW Coefficient of Variation 13.8 11.5-14.5 % Platelet Count 287 130-400 K/uL Mean Platelet Volume 9.5 7.4-10.4 fL Nucleated RBC Absolute Count (auto) 0.03 0-0 K/uL Nucleated Red Blood Cells % 0.4 % Sodium Level 139 136-145 mmol/L Potassium Level 4.1 3.5-5.1 mmol/L Chloride Level 105 98-107 mmol/L Carbon Dioxide Level 25 21-32 mmol/L Anion Gap 9.0 3-11 mmol/L Blood Urea Nitrogen 5 7-18 mg/dl Creatinine 0.63 0.60-1.40 mg/dl Est Creatinine Clear Calc Drug Dose 164.1 ml/min Estimated GFR () 127.7 Estimated GFR (Non- 110.2 BUN/Creatinine Ratio 7.9 10-20 Random Glucose 180 70-99 mg/dl Calcium Level 7.6 8.5-10.1 mg/dl Phosphorus Level 2.4 2.5-4.9 mg/dl Magnesium Level 2.0 1.8-2.4 mg/dl Bedside Glucose 153 70-99 mg/dl Assessment and Plan 56 year old male with CAD, COPD, DMII, HTN, HLD and chronic back pain admitted for small bowel obstruction. PSBO s/p Exp Lap 11/25/17 lysis of adhesions - 1st CT abdo: multiple distended gas and fluid-filled loops of small bowel seen throughout the abdomen. The distal ileal loops are decompressed and there is an apparent transition point within the small bowel at the right mid abdomen - 11/25/2017: Repeat CT abd /pelvis yesterday concerning for PSBO 2/2 adhesions. 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, increased allowed increments this morning due to pain and associated tachycardia Tachycardia - tachycardic this morning in the 120's-->130's - afebrile, no subjective infectious symptoms and without a wcc - patient in pain ---> dilaudid DECKH[employer] ENGINEER increased - patient refused lovenox injection this AM, - EKG ordered and 119 NSR - continue to closely monitor Hypophosphatemia - phos 2.4 - continue to monitor Thrush - Nystatin swish and spit CAD/HTN - aspirin and lisinopril help as patient NPO - IV hydralazine 10mg q6h for SBP >160 COPD - Continue Spiriva DMII - Metformin and glimepiride held - ISS with check ac/hs - blood sugars better controlled with 15 units BID Chronic back pain - Hold Percocet, naproxen, Flexeril - IV dilaudid as above Anxiety - Alprazolam and nortriptyline held - IV Ativan 0.5mg q8h PRN anxiety VTE ppx - SCDs - lovenox 40mg subq (patient refused this morning) FULL CODE Continued [facility] stay due to: multiple IV medications needed Discharge planning: uncertain Reviewed: Pt Seen/Exam by Me History c/o severe abdominal pain Constitutional: denies: fever Respiratory: negative: short of breath Cardiovascular: denies chest pain Gastrointestinal/Abdominal: positive: abdominal pain General Appearance: moderate distress Respiratory: no respiratory distress, decreased breath sounds Cardiovascular: regular rate, rhythm Gastrointestinal: distended, tenderness, other (decreased bowel sounds) Neurologic/Psychiatric: alert, oriented x 3 Skin Characteristics: warm/dry Assessment/Plan Resident Physician Supervision Note: I independently interviewed and examined the patient and verified the salas history and physical, reviewed labs and image studies, discussed the case with the resident Dr. Parisi and agree with the findings and care plan.
[2017-11-26] MEDS: HYDROmorphone HCL 0.5MG/ML 50 ML CASSETTE IV PRN (10:36)
[2017-11-26] MEDS: ONDANSETRON INJ 2 MG/ML 2 ML VIAL IV PRN (15:24)
[2017-11-26] MEDS ORDERED: FAMOTIDINE IV INJ 20 MG in DEXTROSE 5% 100ML 100 ML IV SCH ×2 (16:30→17:15)
[2017-11-26] MEDS: PROMETHAZINE HCL INJ 25 MG in SODIUM CHLORIDE 0.9% 50ML 50 ML IV PRN (16:33)
[2017-11-26 16:50] LABS: HEMATOCRIT 44.4 % (42-52); HEMOGLOBIN 15.1 g/dL (14.0-18.0); MEAN CELL VOLUME 91.4 fL (80-100); MEAN CORPUSCULAR HEMOGLOBIN 31.1 pg (25-34); MEAN PLATELET VOLUME 9.3 fL (7.4-10.4); NUCLEATED RED BLOOD CELL ABS 0.03 K/uL (0-0); PLATELET COUNT 296 K/uL (130-400); RED CELL DISTRIBUTION WIDTH CV 13.8 % (11.5-14.5); RED CELL DISTRIBUTION WIDTH SD 45.9 fL (36.4-46.3); WHITE BLOOD COUNT 9.13 K/uL (4.8-10.8)
--- NOTE | 2017-11-26 17:09 | DIAGNOSTIC IMAGING REPORT ---
CHEST 2 VIEWS ROUTINE CLINICAL HISTORY: Atypical chest pain COMPARISON STUDY: 01/31/2013 FINDINGS: The heart is mildly enlarged. There is a nasogastric tube within the stomach. There is no focal pulmonary consolidation. There is no failure. There are no pleural effusions. There is a suboptimal inspiration with bronchovascular crowding at the lung bases.[ IMPRESSION: No active disease in the chest. Electronically signed by: Boubacar Olmedo M.D. 11/26/2017 5:08 PM Dictated Date/Time: 11/26/2017 5:06 PM
[2017-11-26] MEDS ORDERED: OPTIRAY 320 IV PRN (17:15)
[2017-11-26] MEDS ORDERED: FAMOTIDINE IV INJ 20 MG in SYRINGE 3 ML IV SCH (18:00)
[2017-11-26 18:03] LABS: HEMATOCRIT 46.9 % (42-52); HEMOGLOBIN 15.9 g/dL (14.0-18.0); MEAN CELL VOLUME 91.1 fL (80-100); MEAN CORPUSCULAR HEMOGLOBIN 30.9 pg (25-34); MEAN PLATELET VOLUME 9.4 fL (7.4-10.4); PLATELET COUNT 300 K/uL (130-400); RED CELL DISTRIBUTION WIDTH CV 13.6 % (11.5-14.5); RED CELL DISTRIBUTION WIDTH SD 45.6 fL (36.4-46.3); WHITE BLOOD COUNT 9.54 K/uL (4.8-10.8)
[2017-11-26 18:19] LABS: MEAN CORPUSCULAR HGB CONC 33.9 g/dl (32-36)
--- NOTE | 2017-11-26 18:41 | DIAGNOSTIC IMAGING REPORT ---
CT ANGIOGRAM OF THE CHEST CLINICAL HISTORY: Atypical chest pain COMPARISON STUDY: Chest x-ray dated 11/26/2017 TECHNIQUE: Following the IV administration of 93 mL of Optiray-320, CT angiogram of the thorax was performed from the thoracic inlet to the lung bases utilizing the pulmonary embolus protocol. Images are reviewed in the axial, sagittal, and coronal planes. IV contrast was administered without complication. MIP imaging was performed. A dose lowering technique was utilized adhering to the principles of ALARA. CT DOSE: 528.32 mGy.cm FINDINGS: There is an indwelling nasogastric tube. There is hepatic steatosis. No pathologically enlarged axillary mediastinal or hilar lymph nodes were visualized. There was no evidence of thoracic aortic dilatation. There were no pulmonary artery filling defects to indicate acute pulmonary embolism. There is a trace right pleural effusion. There are dependent airspace opacities within the right upper lobe and right lower lobe, likely atelectatic. There is a 15 mm right apical mixed solid and groundglass nodular opacity. A three-month follow-up CT scan is recommended There is mild elevation of the right hemidiaphragm. IMPRESSION: 1. No CT evidence of acute pulmonary embolism 2. Low lung volumes with dependent right upper lobe and right lower lobe airspace opacities likely atelectatic 3. Trace right pleural effusion 4. Hepatic steatosis 5. 15 mm right apical mixed solid and groundglass nodular opacity. A [address] follow-up is recommended Electronically signed by: Boubacar Olmedo M.D. 11/26/2017 6:39 PM Dictated Date/Time: 11/26/2017 6:33 PM
[2017-11-26] MEDS: FAMOTIDINE IV INJ 20 MG in SYRINGE 3 ML IV SCH (18:58)
[2017-11-26] MEDS: ASPIRIN 81 MG ECTAB PO SCH (21:00)
[2017-11-27] VITALS (8 sets, daily range): BP systolic 121–154; BP diastolic 63–91; PULSE 74–110; TEMP 36.5–37.1; O2SAT 91–97
[2017-11-27] MEDS: NSS + 20MEQ KCL 1000ML 1,000 ML IV SCH ×2 (03:13→11:06)
[2017-11-27] MEDS: FAMOTIDINE IV INJ 20 MG in SYRINGE 3 ML IV SCH (05:48)
[2017-11-27] MEDS: INSULIN ASPART 100 UNITS/ML 3 ML PEN SC SCH ×3 (05:48→18:36)
[2017-11-27 06:29] LABS: HEMOGLOBIN 14.8 g/dL (14.0-18.0); MEAN CELL VOLUME 92.8 fL (80-100); MEAN CORPUSCULAR HEMOGLOBIN 30.5 pg (25-34); MEAN CORPUSCULAR HGB CONC 32.9 g/dl (32-36); MEAN PLATELET VOLUME 9.6 fL (7.4-10.4); NUCLEATED RED BLOOD CELL ABS 0.04 K/uL (0-0); PLATELET COUNT 317 K/uL (130-400); RED CELL DISTRIBUTION WIDTH CV 13.8 % (11.5-14.5); RED CELL DISTRIBUTION WIDTH SD 47.1 fL (36.4-46.3); WHITE BLOOD COUNT 8.34 K/uL (4.8-10.8)
[2017-11-27] MEDS ORDERED: DEXTROSE 10% 1,000 ML IV PRN ×2 (06:57→13:29)
[2017-11-27] MEDS ORDERED: TPN/PPN CONSULT PHARMACY PRN (07:00)
[2017-11-27] MEDS ORDERED: CUSTOM CENTRAL PN 1 BAG IV SCH (07:00)
[2017-11-27 07:08] LABS: CREATININE 0.61 mg/dl (0.60-1.40); POTASSIUM 4.2 mmol/L (3.5-5.1)
[2017-11-27 07:11] LABS: TOTAL PROTEIN 6.1 gm/dl (6.4-8.2)
--- NOTE | 2017-11-27 07:13 | Surgery Progress Note ---
Surgery Progress Note Date of Service Nov 27, 2017. Subjective significant NG output- clear bilious to PCU for monitoring per med team no acute chgs- some flatus Objective Vital Signs: Date Time Temp Pulse Resp B/P (MAP) Pulse Ox O2 Delivery O2 Flow Rate FiO2 11/27/17 04:00 Nasal Cannula 2.0 11/27/17 02:59 36.6 105 18 127/86 (100) 96 Nasal Cannula 2.0 11/27/17 00:00 91 Room Air 11/26/17 23:05 36.9 110 20 147/86 (106) 91 Room Air 11/26/17 20:00 Room Air 11/26/17 18:50 36.8 117 18 155/95 (115) 95 Nasal Cannula 2.0 11/26/17 18:46 36.9 123 20 92 11/26/17 15:30 Room Air 11/26/17 15:09 36.9 123 20 149/96 (113) 92 Room Air 11/26/17 13:25 146/97 (113) 11/26/17 12:00 36.7 117 16 109/75 (86) 92 Room Air 11/26/17 09:52 93 Room Air 11/26/17 08:06 37.1 120 17 160/98 (118) 93 Room Air 11/26/17 07:45 90 Room Air General Appearance: no apparent distress Respiratory/Chest: no respiratory distress Cardiovascular: + tachycardia (less) Abdomen: + distended (some bowel sounds, some high pitched) Laboratory Results: Results Past 24 Hours Test 11/26/17 12:06 11/26/17 16:39 11/26/17 17:25 11/26/17 17:50 Range/Units Bedside Glucose 132 116 70-99 mg/dl White Blood Count 9.13 9.54 4.8-10.8 K/uL Red Blood Count 4.86 5.15 4.7-6.1 M/uL Hemoglobin 15.1 15.9 14.0-18.0 g/dL Hematocrit 44.4 46.9 42-52 % Mean Corpuscular Volume 91.4 91.1 80-100 fL Mean Corpuscular Hemoglobin 31.1 30.9 25-34 pg Mean Corpuscular Hemoglobin Concent 34.0 33.9 32-36 g/dl RDW Standard Deviation 45.9 45.6 36.4-46.3 fL RDW Coefficient of Variation 13.8 13.6 11.5-14.5 % Platelet Count 296 300 130-400 K/uL Mean Platelet Volume 9.3 9.4 7.4-10.4 fL Nucleated RBC Absolute Count (auto) 0.03 0-0 K/uL Nucleated Red Blood Cells % 0.3 % Lactic Acid Level 1.2 0.4-2.0 mmol/L Troponin I < 0.015 0-0.045 ng/ml Test 11/26/17 23:03 11/26/17 23:56 11/27/17 05:38 11/27/17 05:46 Range/Units Bedside Glucose 151 139 70-99 mg/dl Troponin I < 0.015 0-0.045 ng/ml White Blood Count 8.34 4.8-10.8 K/uL Red Blood Count 4.85 4.7-6.1 M/uL Hemoglobin 14.8 14.0-18.0 g/dL Hematocrit 45.0 42-52 % Mean Corpuscular Volume 92.8 80-100 fL Mean Corpuscular Hemoglobin 30.5 25-34 pg Mean Corpuscular Hemoglobin Concent 32.9 32-36 g/dl RDW Standard Deviation 47.1 36.4-46.3 fL RDW Coefficient of Variation 13.8 11.5-14.5 % Platelet Count 317 130-400 K/uL Mean Platelet Volume 9.6 7.4-10.4 fL Nucleated RBC Absolute Count (auto) 0.04 0-0 K/uL Nucleated Red Blood Cells % 0.5 % Assessment & Plan 11/27/17- persistent , prolonged ileus- not unexpected will need NG , picc ordered, for Ppn/Tpn- needs proteins Will ask GI for thoughts- he may need 1-2 weeks with NG. 11/26/17- s/p exploratory laparotomy, lysis of adhesions expect prolonged ileus, cont ice only and NG. gates out. check labs. expect 5-7 days addnl in hospital 11/25/17- Concern for cont obstructive sxs- suspect mechanical source/ ?adhesion, ? int hernia for CT with contrast this am- may require expl lap Discussed with pt and addendum- CT shows more dilated distal small bowel pt has not had surgery prior- I feel he should undergo Lap/ lysis of adhesions, possibly other etiology. he and agree 11/24/17- will leave NG, check labs incl Mg, Phos try to have him ambulate- some GI function with flatus, bm addendum- pt upset I didn't come back to see him and clamp NG tube- I had a discussion with him and his that I didn't feel we should clamp or remove tube with his abd distention- he is upset things are not progressing faster. I told him he may need an operation if he does not improve. They seemed to understand 11/26/17- s/p exploratory laparotomy, lysis of adhesions expect prolonged ileus, cont ice only and NG. gates out. check labs. expect 5-7 days addnl in hospital 11/25/17- Concern for cont obstructive sxs- suspect mechanical source/ ?adhesion, ? int hernia for CT with contrast this am- may require expl lap Discussed with pt and addendum- CT shows more dilated distal small bowel pt has not had surgery prior- I feel he should undergo Lap/ lysis of adhesions, possibly other etiology. he and agree 11/24/17- will leave NG, check labs incl Mg, Phos try to have him ambulate- some GI function with flatus, bm addendum- pt upset I didn't come back to see him and clamp NG tube- I had a discussion with him and his that I didn't feel we should clamp or remove tube with his abd distention- he is upset things are not progressing faster. I told him he may need an operation if he does not improve. They seemed to understand
[2017-11-27] MEDS: SODIUM CHLORIDE 0.9% 1000ML 1,000 ML IV SCH (08:07)
--- NOTE | 2017-11-27 08:07 | Family Medicine Progress Note ---
Progress Note Date of Service Nov 27, 2017. Subjective Pt evaluation today including: conversation w/ patient, physical exam, chart review, lab review, conversation w/ computer consultant, review of inpatient medication list Pain: improved PO Intake: NPO Voiding: no voiding problems Patient is feeling better since yesterday. Still has some mild reflux like symptoms Is feeling tired and weak as he would like to eat Constitutional: No fever, No chills ENT: No hearing loss, No nasal symptoms, No sore throat Respiratory: No cough, No sputum, No shortness of breath Cardiovascular: + chest pain, No edema, No palpitations Abdomen: + pain, + nausea, No vomiting, No diarrhea, No constipation, No GI bleeding Male : No dysuria, No urinary frequency Medications Current Inpatient Medications Medications (Trade) Dose Ordered Sig/Dale Route Start Time Stop Time Status Last Admin Dose Admin Ondansetron HCl (Zofran Inj) 4 mg Q6H PRN IV 11/22/17 00:30 12/22/17 00:29 11/26/17 15:24 4 MG Tiotropium [place] (Spiriva Handihaler Inhaler) 1 puff DAILY INH 11/22/17 09:00 12/22/17 08:59 11/26/17 08:53 1 PUFF Hydralazine HCl (HydrALAZINE INJ) 10 mg Q6H PRN IV. 11/22/17 00:30 12/22/17 00:29 Glucagon (Glucagon Inj) 1 mg UD PRN SQ 11/22/17 19:15 12/22/17 19:14 Glucose (Glucose 40% Gel) 15-30 GRAMS 15 GRAMS... UD PRN PO 11/22/17 19:15 12/22/17 19:14 Glucose (Glucose Chew Tab) 4-8 Tablets 4 Tabl... UD PRN PO 11/22/17 19:15 12/22/17 19:14 Nystatin (Mycostatin Susp) 10 ml QID PO 11/22/17 09:00 12/02/17 08:59 11/26/17 17:37 10 ML Lorazepam 0.5 mg/ Syringe 1 ml @ 1 mls/min Q8H PRN IV 11/22/17 02:30 12/22/17 02:29 11/26/17 06:41 1 MLS/MIN Acetaminophen 650 mg/Empty Bag 65 ml @ 260 mls/hr Q6H PRN IV 11/22/17 08:45 12/22/17 08:44 Aspirin (Ecotrin Tab) 81 mg HS PO 11/23/17 21:00 12/23/17 20:59 11/23/17 21:03 81 MG Insulin Aspart (novoLOG ASPART) SLIDING SCALE If C... Q6 SC 11/24/17 06:00 12/24/17 05:59 11/26/17 23:15 1 UNITS Insulin Glargine (Lantus Solostar Pen) 15 units BID SC 11/24/17 09:00 12/25/17 08:59 11/26/17 23:16 15 UNITS Ioversol (Optiray 320) 100 ml UD PRN IV 11/25/17 04:15 11/29/17 04:14 Enoxaparin Sodium (Lovenox Inj) 40 mg QAM SQ 11/26/17 09:00 12/26/17 08:59 Promethazine HCl 25 mg/Sodium Chloride 51 ml @ 204 mls/hr Q6H PRN IV 11/25/17 10:45 12/25/17 10:44 11/26/17 16:33 204 MLS/HR Ondansetron HCl (Zofran Inj) 4 mg Q6H PRN IV 11/25/17 10:45 12/25/17 10:44 Naloxone HCl (Narcan Inj) 0.1 mg Q5M PRN IV 11/25/17 10:45 12/25/17 10:44 Hydromorphone HCl (Dilaudid Prepress Specialist) 25 mg PRN PRN IV 11/25/17 10:45 12/09/17 10:44 11/26/17 10:36 25 MG Sodium Chloride 1,000 ml @ 15 mls/hr Q24H IV 11/25/17 10:42 12/25/17 10:41 Hydromorphone HCl (Dilaudid Inj) 0.5 mg Q3H PRN IV 11/25/17 11:00 12/09/17 10:59 Future Hold Hydromorphone HCl (Dilaudid Inj) 1 mg Q3H PRN IV 11/25/17 11:00 12/09/17 10:59 Future Hold Hydromorphone HCl (Dilaudid Inj) 2 mg Q3H PRN IV 11/25/17 11:00 12/09/17 10:59 Future Hold Potassium Chloride/Sodium Chloride 1,000 ml @ 125 mls/hr Q8H IV 11/25/17 19:00 12/25/17 18:59 11/27/17 03:13 125 MLS/HR Famotidine 20 mg/ Syringe 5 ml @ 2.5 mls/min Q12H IV 11/26/17 18:00 12/26/17 17:59 11/27/17 05:48 2.5 MLS/MIN Ioversol (Optiray 320) 100 ml UD PRN IV 11/26/17 17:15 11/30/17 17:14 Nutrition (Parenteral) 0 ml @ 0 mls/hr TODAY IV 11/27/17 07:00 11/28/17 06:59 UNV Dextrose 1,000 ml @ 0 mls/hr Q0M PRN IV 11/27/17 06:57 12/27/17 06:56 UNV Miscellaneous Information (Pharmacy Tpn/ Ppn Consult Active) 1 ea UD PRN N/A 11/27/17 07:00 12/27/17 06:59 UNV Objective Vital Signs Date Time Temp Pulse Resp B/P (MAP) Pulse Ox O2 Delivery O2 Flow Rate FiO2 11/27/17 07:46 36.7 86 18 121/63 (82) 95 11/27/17 04:00 Nasal Cannula 2.0 11/27/17 02:59 36.6 105 18 127/86 (100) 96 Nasal Cannula 2.0 11/27/17 00:00 91 Room Air 11/26/17 23:05 36.9 110 20 147/86 (106) 91 Room Air 11/26/17 20:00 Room Air 11/26/17 18:50 36.8 117 18 155/95 (115) 95 Nasal Cannula 2.0 11/26/17 18:46 36.9 123 20 92 11/26/17 15:30 Room Air 11/26/17 15:09 36.9 123 20 149/96 (113) 92 Room Air 11/26/17 13:25 146/97 (113) 11/26/17 12:00 36.7 117 16 109/75 (86) 92 Room Air 11/26/17 09:52 93 Room Air 11/26/17 08:06 37.1 120 17 160/98 (118) 93 Room Air Physical Exam General Appearance: WD/WN, no apparent distress, + obese, + pertinent finding ( NG tube in place) ENT: pharynx normal Neck: supple, no carotid bruits, trachea midline Respiratory/Chest: lungs clear, no respiratory distress, no accessory muscle use, + pertinent finding (only able to listen on the anterior chest) Cardiovascular: regular rate, rhythm, no edema, no murmur Abdomen: soft, + abnormal bowel sounds (decreased), + distended, + tenderness ( tender throught and most prominent in the epigastric region) Extremities: non-tender, no pedal edema, no calf tenderness Neurologic/Psychiatric: alert, normal mood/affect, oriented x 3 Skin: normal color, warm/dry, no rash Laboratory Results Results Past 24 Hours Test 11/26/17 12:06 11/26/17 16:39 11/26/17 17:25 11/26/17 17:50 Range/Units Bedside Glucose 132 116 70-99 mg/dl White Blood Count 9.13 9.54 4.8-10.8 K/uL Red Blood Count 4.86 5.15 4.7-6.1 M/uL Hemoglobin 15.1 15.9 14.0-18.0 g/dL Hematocrit 44.4 46.9 42-52 % Mean Corpuscular Volume 91.4 91.1 80-100 fL Mean Corpuscular Hemoglobin 31.1 30.9 25-34 pg Mean Corpuscular Hemoglobin Concent 34.0 33.9 32-36 g/dl RDW Standard Deviation 45.9 45.6 36.4-46.3 fL RDW Coefficient of Variation 13.8 13.6 11.5-14.5 % Platelet Count 296 300 130-400 K/uL Mean Platelet Volume 9.3 9.4 7.4-10.4 fL Nucleated RBC Absolute Count (auto) 0.03 0-0 K/uL Nucleated Red Blood Cells % 0.3 % Lactic Acid Level 1.2 0.4-2.0 mmol/L Troponin I < 0.015 0-0.045 ng/ml Test 11/26/17 23:03 11/26/17 23:56 11/27/17 05:38 2/6/18 05:46 Range/Units Bedside Glucose 151 139 70-99 mg/dl Troponin I < 0.015 0-0.045 ng/ml White Blood Count 8.34 4.8-10.8 K/uL Red Blood Count 4.85 4.7-6.1 M/uL Hemoglobin 14.8 14.0-18.0 g/dL Hematocrit 45.0 42-52 % Mean Corpuscular Volume 92.8 80-100 fL Mean Corpuscular Hemoglobin 30.5 25-34 pg Mean Corpuscular Hemoglobin Concent 32.9 32-36 g/dl RDW Standard Deviation 47.1 36.4-46.3 fL RDW Coefficient of Variation 13.8 11.5-14.5 % Platelet Count 317 130-400 K/uL Mean Platelet Volume 9.6 7.4-10.4 fL Nucleated RBC Absolute Count (auto) 0.04 0-0 K/uL Nucleated Red Blood Cells % 0.5 % Sodium Level 141 136-145 mmol/L Potassium Level 4.2 3.5-5.1 mmol/L Chloride Level 107 98-107 mmol/L Carbon Dioxide Level 24 21-32 mmol/L Anion Gap 10.0 3-11 mmol/L Blood Urea Nitrogen 6 7-18 mg/dl Creatinine 0.61 0.60-1.40 mg/dl Est Creatinine Clear Calc Drug Dose 173.7 ml/min Estimated GFR () 129.4 Estimated GFR (Non- 111.6 BUN/Creatinine Ratio 9.3 10-20 Random Glucose 172 70-99 mg/dl Calcium Level 8.0 8.5-10.1 mg/dl Total Bilirubin 0.4 0.2-1 mg/dl Aspartate Amino Transf (AST/SGOT) 10 15-37 U/L Alanine Aminotransferase (ALT/SGPT) 19 12-78 U/L Alkaline Phosphatase 55 45-117 U/L Total Protein 6.1 6.4-8.2 gm/dl Albumin 2.0 3.4-5.0 gm/dl Globulin 4.1 2.5-4.0 gm/dl Albumin/Globulin Ratio 0.5 0.9-2 Assessment and Plan 56 year old male with CAD, COPD, DMII, HTN, HLD and chronic back pain admitted for small bowel obstruction. Had worsening nausea, tachycardia and indigestion yesterday evening. Labs and imaging were ordered and return as normal. Started on pepcid IV and patient says he is feeling better after this was started. PSBO s/p Exp Lap 11/25/17 lysis of adhesions - 1st CT abdo: multiple distended gas and fluid-filled loops of small bowel seen throughout the abdomen. The distal ileal loops are decompressed and there is an apparent transition point within the small bowel at the right mid abdomen - 11/25/2017: Repeat CT abd /pelvis concerning for PSBO 2/2 adhesions. - NG tube w suction, NPO, ice chips - IV ondansetron and phenergan PRN nausea - IV pepcid for gastritis and reflux - IV Dilaudid SEASONAL CLERK pump, increased allowed increments this morning due to pain -- --> currently well controlled on current regimen - PICC line ordered, GI and modeling director consult ordered due to need for TPN with likely prolonged NG suction Tachycardia - tachycardia improving today - CT for PE negative, trop negative and lactic acid negative - afebrile, no subjective infectious symptoms and without a wcc - patients pain well controlled---> dilaudid SEASONAL CLERK increased yesterday - EKG ordered yesterday and 119 NSR - continue to closely monitor Hypophosphatemia - phos 2.4 yesterday - repeat tomorrow AM - continue to monitor Thrush - Nystatin swish and spit CAD/HTN - aspirin and lisinopril help as patient NPO - blood pressure well controlled - IV hydralazine 10mg q6h for SBP >160 COPD - Continue Spiriva DMII - Metformin and glimepiride held - ISS with check ac/hs - blood sugars better controlled with 15 units BID Chronic back pain - Hold Percocet, naproxen, Flexeril - IV dilaudid as above Anxiety - Alprazolam and nortriptyline held - IV Ativan 0.5mg q8h PRN anxiety VTE ppx - SCDs - lovenox 40mg subq FULL CODE Continued [facility] stay due to: inadequate po fluid intake, multiple IV medications needed Discharge planning: uncertain Reviewed: Pt Seen/Exam by Me History feeling much better compared to yesterday. Constitutional: denies: fever Respiratory: negative: short of breath Cardiovascular: denies chest pain General Appearance: no apparent distress Respiratory: lungs clear, no respiratory distress Cardiovascular: regular rate, rhythm Gastrointestinal: tenderness (incisional) Neurologic/Psychiatric: alert, oriented x 3 Skin Characteristics: warm/dry Assessment/Plan Resident Physician Supervision Note: I independently interviewed and examined the patient and verified the salas history and physical, reviewed labs and image studies, discussed the case with the resident Dr. Parisi and agree with the findings and care plan.
[2017-11-27] MEDS: TIOTROPIUM BROMIDE 5 PUFF/90 MCG INH INH SCH (08:08)
[2017-11-27] MEDS: NYSTATIN SUSP 500,000 U/5 ML UDC PO SCH ×4 (08:08→21:00)
[2017-11-27] MEDS: ENOXAPARIN 40 MG/0.4 ML SYR SQ SCH (08:10)
[2017-11-27] MEDS: INSULIN GLARGINE SOLOSTAR 100 UNITS/ML 3 ML PEN SC SCH ×2 (08:12→21:21)
--- NOTE | 2017-11-27 10:56 | DIAGNOSTIC IMAGING REPORT ---
KUB CLINICAL HISTORY: Ileus. FINDINGS: 4 AP supine abdominal radiographs are correlated with abdominal CT dated 11/25/2017. Skin clips are noted. An enteric tube projects below the diaphragm over the proximal stomach. There is gaseous distention of the small bowel loops and colon. No evidence of intraperitoneal free air is seen on these supine images. There are no abnormal abdominal calcifications. The Skeletal structures are osteopenic. Extensive fusion hardware is seen in the lumbar spine. IMPRESSION: 1. Skin clips are new from previous. 2. An enteric tube projects over the stomach. 3. There is gaseous distention of the small bowel loops and colon. This is nonspecific and could represent obstruction versus ileus. Ileus is favored. Clinical correlation will be required. Electronically signed by: Rey Parish M.D. 11/27/2017 10:54 AM Dictated Date/Time: 11/27/2017 10:49 AM
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
[2017-11-27] MEDS: METHYLNALTREXONE BROMIDE INJ 12 MG/0.6 ML SYR SQ SCH (11:26)
[2017-11-27] MEDS: HYDROmorphone HCL 0.5MG/ML 50 ML CASSETTE IV PRN (14:14)
--- NOTE | 2017-11-27 14:47 | Pharmacy Progress Note ---
Parenteral Nutrition Consult Date of Service Nov 27, 2017. Scope Pharmacy has been consulted to manage parenteral nutrition orders and order appropriate labs. As part of the Nutrition Support Team guidelines, pharmacy will work in conjunction with dietary when determining the patients caloric needs. Subjective The patient is a 56 year old male admitted on Nov 22, 2017 at 00:27 for SBO. Patient is to receive parenteral nutrition for prolonged NPO secondary to ileus s/p SBO. Pertinent PMH: * DM * COPD * CAD * HTN Objective Height (Feet): 5 Height (Inches): 10.00 Weight (Kilograms): 117.600 Diet: NPO Vascular Access: PICC line established today. Intake & Output (Last 72 Hr): 11/26/17 11/27/17 11/28/17 08:00 08:00 08:00 Intake Total 5234 ml 2261 ml 918 ml Output Total 3645 ml 4000 ml 1400 ml Balance 1589 ml -1739 ml -482 ml Laboratory Data (Last 24 Hr): Test 11/27/17 05:38 Alanine Aminotransferase (ALT/SGPT) 19 U/L (12-78) Albumin 2.0 gm/dl (3.4-5.0) Alkaline Phosphatase 55 U/L (45-117) Aspartate Amino Transf (AST/SGOT) 10 U/L (15-37) Blood Urea Nitrogen 6 mg/dl (7-18) Calcium Level 8.0 mg/dl (8.5-10.1) Carbon Dioxide Level 24 mmol/L (21-32) Chloride Level 107 mmol/L (98-107) Creatinine 0.61 mg/dl (0.60-1.40) Potassium Level 4.2 mmol/L (3.5-5.1) Random Glucose 172 mg/dl (70-99) Sodium Level 141 mmol/L (136-145) Total Bilirubin 0.4 mg/dl (0.2-1) Nutrition Assessment Please refer to the Notes section of the EMR for the most recent surgical services tech note. Assessment Pt has been NPO x 6 days, and reports poor po intake prior to becoming NPO. PICC line established today, however a PPN will be provided for the first bag. Dr. Milligan is aware. TPN will be started tomorrow if appropriate. Plan For day 1 of PN administration, the following will be ordered: Macronutrients Amino acids 65 grams/day Dextrose 100 grams/day Lipids 30 grams/day Micronutrients Combined electrolytes 20 mL - contains 35 mEq Na, 20 meq K, 4.5 mEq Ca, 5 mEq Mg , 35 mEq Cl, 29.5 mEq acetate per 20 mL Sodium phosphate 24 MMol Sodium chloride 0 mEq Sodium acetate 20 mEq Potassium phosphate 0 mMol Potassium chloride 0 mEq Potassium acetate 20 mEq Magnesium sulfate 0 mEq Calcium gluconate 0 mEq Multivitamins 10 mL Trace Elements 10 mL Additional additives: Regular Insulin 15 units Famotidine 40mg Thiamine 100mg Folic acid 1mg Total volume 2400 mL to be infused over 24 hrs will provide 900 kcal/day Final osmolarity 606 mOsm/L (maximum for PPN is 600 mOsm/L, ok for this patient) Labs to be ordered per PN order protocol Pharmacy will follow and adjust parenteral nutrition orders on a daily basis. Thank you.
[2017-11-27] MEDS ORDERED: NURSING VERBAL MED ORDER ONE (15:00)
[2017-11-27] MEDS ORDERED: CUSTOM PERIPHERAL PN 1 BAG IV SCH (16:00)
[2017-11-27] MEDS: HYDROmorphone INJ 1 MG/ML SYR IV PRN (16:37)
[2017-11-27] MEDS: ASPIRIN 81 MG ECTAB PO SCH (21:00)
[2017-11-27] MEDS: LORAZEPAM INJ 0.5 MG in SYRINGE 0.75 ML IV PRN (21:32)
[2017-11-28] MEDS: INSULIN ASPART 100 UNITS/ML 3 ML PEN SC SCH ×4 (00:30→18:26)
[2017-11-28] MEDS: HYDROmorphone INJ 1 MG/ML SYR IV PRN ×2 (00:31→21:58)
[2017-11-28 05:49] LABS: HEMOGLOBIN 13.4 g/dL (14.0-18.0); MEAN CELL VOLUME 91.5 fL (80-100); MEAN CORPUSCULAR HEMOGLOBIN 30.7 pg (25-34); MEAN CORPUSCULAR HGB CONC 33.5 g/dl (32-36); MEAN PLATELET VOLUME 9.4 fL (7.4-10.4); PLATELET COUNT 272 K/uL (130-400); RED CELL DISTRIBUTION WIDTH CV 13.7 % (11.5-14.5); RED CELL DISTRIBUTION WIDTH SD 46.3 fL (36.4-46.3); WHITE BLOOD COUNT 8.94 K/uL (4.8-10.8)
[2017-11-28 06:07] VITALS: O2SAT 96
--- NOTE | 2017-11-28 06:20 | Surgery Progress Note ---
Surgery Progress Note Date of Service Nov 28, 2017. Subjective high NG output- much ice no bm, min flatus Ppn running via Picc Objective Vital Signs: Date Time Temp Pulse Resp B/P (MAP) Pulse Ox O2 Delivery O2 Flow Rate FiO2 11/28/17 06:07 96 Nasal Cannula 2.0 11/28/17 00:25 Nasal Cannula 2.0 11/27/17 22:51 36.9 105 17 148/80 (102) 96 Nasal Cannula 2.0 11/27/17 16:00 Room Air 11/27/17 15:23 37.1 109 18 154/91 (112) 96 Room Air 11/27/17 14:15 Room Air 11/27/17 14:15 36.5 110 16 154/69 (97) 94 Room Air 11/27/17 13:30 36.8 74 18 97 11/27/17 12:00 Room Air 11/27/17 11:49 36.8 74 18 134/69 (90) 97 11/27/17 08:00 Room Air 11/27/17 07:46 36.7 86 18 121/63 (82) 95 General Appearance: no apparent distress Respiratory/Chest: no respiratory distress Abdomen: + distended (more bowel sounds) Incision(s): intact Laboratory Results: Results Past 24 Hours Test 11/27/17 11:21 11/27/17 18:06 11/28/17 00:03 11/28/17 05:23 Range/Units Bedside Glucose 208 193 177 70-99 mg/dl White Blood Count 8.94 4.8-10.8 K/uL Red Blood Count 4.37 4.7-6.1 M/uL Hemoglobin 13.4 14.0-18.0 g/dL Hematocrit 40.0 42-52 % Mean Corpuscular Volume 91.5 80-100 fL Mean Corpuscular Hemoglobin 30.7 25-34 pg Mean Corpuscular Hemoglobin Concent 33.5 32-36 g/dl RDW Standard Deviation 46.3 36.4-46.3 fL RDW Coefficient of Variation 13.7 11.5-14.5 % Platelet Count 272 130-400 K/uL Mean Platelet Volume 9.4 7.4-10.4 fL Assessment & Plan 11/28/17- Appreciate GI input- Cont NG, chg to Tpn via picc- may need 5-10 days or longer depending on progress. Pt needs to walk- encouraged. Doubt this will resolve quickly- I will be away- Jarret Muro, [place], Jeffrey available and covering 11/27/17- persistent , prolonged ileus- not unexpected will need NG , picc ordered, for Ppn/Tpn- needs proteins Will ask GI for thoughts- he may need 1-2 weeks with NG. 11/26/17- s/p exploratory laparotomy, lysis of adhesions expect prolonged ileus, cont ice only and NG. gates out. check labs. expect 5-7 days addnl in hospital 11/25/17- Concern for cont obstructive sxs- suspect mechanical source/ ?adhesion, ? int hernia for CT with contrast this am- may require expl lap Discussed with pt and addendum- CT shows more dilated distal small bowel pt has not had surgery prior- I feel he should undergo Lap/ lysis of adhesions, possibly other etiology. he and agree 11/24/17- will leave NG, check labs incl Mg, Phos try to have him ambulate- some GI function with flatus, bm addendum- pt upset I didn't come back to see him and clamp NG tube- I had a discussion with him and his that I didn't feel we should clamp or remove tube with his abd distention- he is upset things are not progressing faster. I told him he may need an operation if he does not improve. They seemed to understand 11/27/17- persistent , prolonged ileus- not unexpected will need NG , picc ordered, for Ppn/Tpn- needs proteins Will ask GI for thoughts- he may need 1-2 weeks with NG. 11/26/17- s/p exploratory laparotomy, lysis of adhesions expect prolonged ileus, cont ice only and NG. gates out. check labs. expect 5-7 days addnl in hospital 11/25/17- Concern for cont obstructive sxs- suspect mechanical source/ ?adhesion, ? int hernia for CT with contrast this am- may require expl lap Discussed with pt and addendum- CT shows more dilated distal small bowel pt has not had surgery prior- I feel he should undergo Lap/ lysis of adhesions, possibly other etiology. he and agree 11/24/17- will leave NG, check labs incl Mg, Phos try to have him ambulate- some GI function with flatus, bm addendum- pt upset I didn't come back to see him and clamp NG tube- I had a discussion with him and his that I didn't feel we should clamp or remove tube with his abd distention- he is upset things are not progressing faster. I told him he may need an operation if he does not improve. They seemed to understand
[2017-11-28 06:28] LABS: CALCIUM 7.8 mg/dl (8.5-10.1); CREATININE 0.46 mg/dl (0.60-1.40); PHOSPHORUS 2.4 mg/dl (2.5-4.9); POTASSIUM 3.5 mmol/L (3.5-5.1)
[2017-11-28] MEDS: ONDANSETRON INJ 2 MG/ML 2 ML VIAL IV PRN (06:30)
[2017-11-28 06:33] VITALS: BP 143/89; PULSE 104
[2017-11-28 07:22] VITALS: BP 134/78; PULSE 108; TEMP 37.1; O2SAT 90
[2017-11-28] MEDS: NYSTATIN SUSP 500,000 U/5 ML UDC PO SCH ×4 (09:00→21:00)
[2017-11-28] MEDS ORDERED: SODIUM PHOSPHATE 3 MMOL/1 ML INFUSION IV STA (09:08)
[2017-11-28] MEDS: TIOTROPIUM BROMIDE 5 PUFF/90 MCG INH INH SCH (09:09)
[2017-11-28] MEDS: ENOXAPARIN 40 MG/0.4 ML SYR SQ SCH (09:11)
[2017-11-28] MEDS: INSULIN GLARGINE SOLOSTAR 100 UNITS/ML 3 ML PEN SC SCH ×2 (09:15→21:55)
[2017-11-28] MEDS ORDERED: SODIUM PHOSPHATE INJ 15 MMOL in SODIUM CHLORIDE 0.9% 250ML 250 ML IV ONE (09:30)
--- NOTE | 2017-11-28 09:31 | Family Medicine Progress Note ---
Progress Note Date of Service Nov 28, 2017. Subjective Pt evaluation today including: conversation w/ patient, physical exam, chart review, lab review, conversation w/ customer service consultant, review of inpatient medication list Pain: 8-9/10 PO Intake: NPO Voiding: no voiding problems Patient notes that his pain is worse today and rates it as a 9/10. 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 He has started to have a worsening cough Constitutional: No fever, No chills Respiratory: + cough, + sputum, No shortness of breath Cardiovascular: No chest pain, No edema, No palpitations Abdomen: + pain, + constipation, No nausea, No vomiting, No diarrhea Male : No dysuria, No urinary frequency, No hematuria Medications Current Inpatient Medications Medications (Trade) Dose Ordered Sig/Dale Route Start Time Stop Time Status Last Admin Dose Admin Ondansetron HCl (Zofran Inj) 4 mg Q6H PRN IV 11/22/17 00:30 12/22/17 00:29 11/28/17 06:30 4 MG Tiotropium [place] (Spiriva Handihaler Inhaler) 1 puff DAILY INH 11/22/17 09:00 12/22/17 08:59 11/28/17 09:09 1 PUFF Hydralazine HCl (HydrALAZINE INJ) 10 mg Q6H PRN IV. 11/22/17 00:30 12/22/17 00:29 Glucagon (Glucagon Inj) 1 mg UD PRN SQ 11/22/17 19:15 12/22/17 19:14 Glucose (Glucose 40% Gel) 15-30 GRAMS 15 GRAMS... UD PRN PO 11/22/17 19:15 12/22/17 19:14 Glucose (Glucose Chew Tab) 4-8 Tablets 4 Tabl... UD PRN PO 11/22/17 19:15 12/22/17 19:14 Nystatin (Mycostatin Susp) 10 ml QID PO 11/22/17 09:00 12/02/17 08:59 11/27/17 08:08 10 ML Lorazepam 0.5 mg/ Syringe 1 ml @ 1 mls/min Q8H PRN IV 11/22/17 02:30 12/22/17 02:29 11/27/17 21:32 1 MLS/MIN Acetaminophen 650 mg/Empty Bag 65 ml @ 260 mls/hr Q6H PRN IV 11/22/17 08:45 12/22/17 08:44 Aspirin (Ecotrin Tab) 81 mg HS PO 11/23/17 21:00 12/23/17 20:59 11/23/17 21:03 81 MG Insulin Aspart (novoLOG ASPART) SLIDING SCALE If C... Q6 SC 11/24/17 06:00 12/24/17 05:59 11/28/17 06:09 1 UNITS Insulin Glargine (Lantus Solostar Pen) 15 units BID SC 11/24/17 09:00 12/25/17 08:59 11/28/17 09:15 15 UNITS Ioversol (Optiray 320) 100 ml UD PRN IV 11/25/17 04:15 11/29/17 04:14 Enoxaparin Sodium (Lovenox Inj) 40 mg QAM SQ 11/26/17 09:00 12/26/17 08:59 11/28/17 09:11 40 MG Promethazine HCl 25 mg/Sodium Chloride 51 ml @ 204 mls/hr Q6H PRN IV 11/25/17 10:45 12/25/17 10:44 11/26/17 16:33 204 MLS/HR Ondansetron HCl (Zofran Inj) 4 mg Q6H PRN IV 11/25/17 10:45 12/25/17 10:44 Hydromorphone HCl (Dilaudid Inj) 0.5 mg Q3H PRN IV 11/25/17 11:00 12/09/17 10:59 Future hold Hydromorphone HCl (Dilaudid Inj) 1 mg Q3H PRN IV 11/25/17 11:00 12/09/17 10:59 Future hold 11/28/17 00:31 1 MG Hydromorphone HCl (Dilaudid Inj) 2 mg Q3H PRN IV 11/25/17 11:00 12/09/17 10:59 Future hold Ioversol (Optiray 320) 100 ml UD PRN IV 11/26/17 17:15 11/30/17 17:14 Dextrose 1,000 ml @ 0 mls/hr Q0M PRN IV 11/27/17 06:57 12/27/17 06:56 Miscellaneous Information (Pharmacy Tpn/ Ppn Consult Active) 1 ea UD PRN N/A 11/27/17 07:00 12/27/17 06:59 Methylnaltrexone [place] (Relistor Inj) 12 mg Q2D@0900 SQ 11/27/17 10:00 12/27/17 09:59 11/27/17 11:26 12 MG Heparin Sodium (Porcine) (Heparin 10 Unit/ ml 5 ml Flush) 5 ml PRN PRN FLUSH 11/27/17 10:30 12/27/17 10:29 11/27/17 21:32 5 ML Nutrition (Parenteral) 0 ml @ 0 mls/hr TODAY@1600 IV 11/27/17 16:00 11/28/17 15:59 11/27/17 16:09 0 MLS/HR Sodium Phosphate 15 mmol/Sodium Chloride 255 ml @ 88 mls/hr ONE ONCE IV 11/28/17 09:30 11/28/17 12:23 Objective Vital Signs Date Time Temp Pulse Resp B/P (MAP) Pulse Ox O2 Delivery O2 Flow Rate FiO2 11/28/17 07:22 37.1 108 20 134/78 (96) 90 Room Air 11/28/17 06:33 104 18 143/89 (107) 11/28/17 06:07 96 Nasal Cannula 2.0 11/28/17 00:25 Nasal Cannula 2.0 11/27/17 22:51 36.9 105 17 148/80 (102) 96 Nasal Cannula 2.0 11/27/17 16:00 Room Air 11/27/17 15:23 37.1 109 18 154/91 (112) 96 Room Air 11/27/17 14:15 Room Air 11/27/17 14:15 36.5 110 16 154/69 (97) 94 Room Air 11/27/17 13:30 36.8 74 18 97 11/27/17 12:00 Room Air 11/27/17 11:49 36.8 74 18 134/69 (90) 97 Physical Exam Notes: General Appearance: WD/WN, no apparent distress, + obese, + pertinent finding ( NG tube in place) ENT: pharynx normal Neck: supple, no carotid bruits, trachea midline Respiratory/Chest: crackles at the bases bilaterally, no respiratory distress, no accessory muscle use Cardiovascular: regular rate, rhythm, no edema, no murmur Abdomen: soft, + abnormal bowel sounds (decreased), + distended, + tenderness ( tender throught and most prominent in the epigastric region) Extremities: non-tender, no pedal edema, no calf tenderness Neurologic/Psychiatric: alert, normal mood/affect, oriented x 3 Skin: normal color, warm/dry, no rash Laboratory Results Results Past 24 Hours Test 11/27/17 11:21 11/27/17 18:06 11/28/17 00:03 11/28/17 05:23 Range/Units Bedside Glucose 208 193 177 70-99 mg/dl White Blood Count 8.94 4.8-10.8 K/uL Red Blood Count 4.37 4.7-6.1 M/uL Hemoglobin 13.4 14.0-18.0 g/dL Hematocrit 40.0 42-52 % Mean Corpuscular Volume 91.5 80-100 fL Mean Corpuscular Hemoglobin 30.7 25-34 pg Mean Corpuscular Hemoglobin Concent 33.5 32-36 g/dl RDW Standard Deviation 46.3 36.4-46.3 fL RDW Coefficient of Variation 13.7 11.5-14.5 % Platelet Count 272 130-400 K/uL Mean Platelet Volume 9.4 7.4-10.4 fL Sodium Level 137 136-145 mmol/L Potassium Level 3.5 3.5-5.1 mmol/L Chloride Level 104 98-107 mmol/L Carbon Dioxide Level 26 21-32 mmol/L Anion Gap 7.0 3-11 mmol/L Blood Urea Nitrogen 5 7-18 mg/dl Creatinine 0.46 0.60-1.40 mg/dl Est Creatinine Clear Calc Drug Dose 230.4 ml/min Estimated GFR () 145.3 Estimated GFR (Non- 125.4 BUN/Creatinine Ratio 10.6 10-20 Random Glucose 172 70-99 mg/dl Calcium Level 7.8 8.5-10.1 mg/dl Phosphorus Level 2.4 2.5-4.9 mg/dl Magnesium Level 1.9 1.8-2.4 mg/dl Triglycerides Level 125 0-150 mg/dl Test 11/28/17 06:02 Range/Units Bedside Glucose 165 70-99 mg/dl Assessment and Plan 56 year old male with CAD, COPD, DMII, HTN, HLD and chronic back pain admitted for small bowel obstruction. PSBO s/p Exp Lap 11/25/17 lysis of adhesions - 1st CT abdo: multiple distended gas and fluid-filled loops of small bowel seen throughout the abdomen. The distal ileal loops are decompressed and there is an apparent transition point within the small bowel at the right mid abdomen - 11/25/2017: Repeat CT abd /pelvis concerning for PSBO 2/2 adhesions. 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 Monitor electrolytes and replace as needed. 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 and limit opioid use - On TPN - encourage ambulation Productive Cough - crackles at the bases bilaterally - afebrile and without a WCC - encourage incentive spirometer - CXR ordered to assess for pneumonia Hypophosphatemia - phos 2.4 today, 15mmol given IV - repeat tomorrow AM - continue to monitor Thrush - Nystatin swish and spit CAD/HTN - aspirin and lisinopril help as patient NPO - blood pressure well controlled - IV hydralazine 10mg q6h for SBP >160 Tachycardia (resolving) - tachycardia improving today - CT for PE negative, trop negative and lactic acid negative - afebrile, no subjective infectious symptoms and without a wcc - continue to closely monitor COPD - Continue Spiriva DMII - Metformin and glimepiride held - ISS with check ac/hs - blood sugars better controlled with 15 units BID Chronic back pain - Hold Percocet, naproxen, Flexeril - IV dilaudid as above Anxiety - Alprazolam and nortriptyline held - IV Ativan 0.5mg q8h PRN anxiety VTE ppx - SCDs - lovenox 40mg subq FULL CODE Continued [facility] stay due to: inadequate po fluid intake, inadequate oral pain control, ambulation difficulties, multiple IV medications needed Discharge planning: uncertain Reviewed: Pt Seen/Exam by Me History feeling tired and wants to have something to drink continues to have pain in abdomen Constitutional: denies: fever Respiratory: negative: short of breath Cardiovascular: denies chest pain General Appearance: no apparent distress Respiratory: lungs clear, no respiratory distress Cardiovascular: regular rate, rhythm Gastrointestinal: distended (mild), tenderness (mainly incisional), other ( decreased breath sounds) Neurologic/Psychiatric: alert, oriented x 3 Assessment/Plan Resident Physician Supervision Note: I independently interviewed and examined the patient and verified the salas history and physical, reviewed labs and image studies, discussed the case with the resident Dr. Parisi and agree with the findings and care plan.
--- NOTE | 2017-11-28 10:15 | DIAGNOSTIC IMAGING REPORT ---
CHEST 2 VIEWS ROUTINE CLINICAL HISTORY: Shortness of breath COMPARISON STUDY: 11/26/2017 FINDINGS: The heart remains enlarged. There is a nasogastric tube within the stomach. There is a right sided PICC catheter, with the tip projected over the superior vena cava. There is mild central vascular prominence. There is no focal pulmonary consolidation. There are no significant pleural effusions.[ IMPRESSION: 1. Cardiomegaly and mild central vascular prominence 2. No evidence of focal pulmonary consolidation 3. Interval placement of a right-sided PICC catheter the tip of which projects over the superior vena cava Electronically signed by: Boubacar Olmedo M.D. 11/28/2017 10:13 AM Dictated Date/Time: 11/28/2017 10:12 AM
--- NOTE | 2017-11-28 10:19 | DIAGNOSTIC IMAGING REPORT ---
KUB CLINICAL HISTORY: 56 years-old Male presenting with re-eval ileus, taken in OR on 11/25/2017 for exploratory laparotomy and lysis of adhesions with umbilical hernia repair, persistent abdominal distention and little flatus. TECHNIQUE: Single supine view of the abdomen was obtained. COMPARISON: 11/27/[address] from 11/25/2017. FINDINGS: Gaseous distention of small bowel to the level of the right lower quadrant as seen on recent CT. Mild small bowel wall thickening may be present. Separation of bowel loops in the right lower quadrant suggest prominent mesenteric fat. No gross pneumoperitoneum. Skin himanshu in place in the right lower quadrant. Allowing for bowel gas and stool, no calcifications to suggest nephrolithiasis. Posterior lumbar fusion hardware with interbody spacers noted. Lung bases clear. IMPRESSION: 1. Postsurgical findings of recent exploratory laparotomy with lysis of adhesions evidenced by skin himanshu in the right lower quadrant. 2. Persistent ileus with relatively less distended bowel in the right lower quadrant. This is not significantly changed from the most recent radiograph from yesterday. Electronically signed by: Edwardo Darden M.D. 11/28/2017 10:18 AM Dictated Date/Time: 11/28/2017 10:12 AM
[2017-11-28] MEDS ORDERED: POTASSIUM CHLR 20 MEQ / WTR 20 MEQ in PREMIXED WATER 100 ML IV ONE (10:30)
--- NOTE | 2017-11-28 11:08 | Gastroenterology Progress Note ---
Progress Note Date of Service: Nov 28, 2017 Subjective Pt evaluation today including: conversation w/ patient, physical exam, chart review, lab review, review of inpatient medication list Pt c/o more abd distension and also notices having more "fluid in lungs" when breathing. Non productive cough. Very little flatus, no BM yet. NGT 2.4L output yesterday Review of Systems Constitutional: No fever, No chills Respiratory: + cough, + shortness of breath Cardiac: No chest pain Abdomen: + pain, No nausea, No vomiting Medications Current Inpatient Medications Medications (Trade) Dose Ordered Sig/Dale Route Start Time Stop Time Status Last Admin Dose Admin Tiotropium [place] (Spiriva Handihaler Inhaler) 1 puff DAILY INH 11/22/17 09:00 12/22/17 08:59 11/28/17 09:09 1 PUFF Hydralazine HCl (HydrALAZINE INJ) 10 mg Q6H PRN IV. 11/22/17 00:30 12/22/17 00:29 Glucagon (Glucagon Inj) 1 mg UD PRN SQ 11/22/17 19:15 12/22/17 19:14 Glucose (Glucose 40% Gel) 15-30 GRAMS 15 GRAMS... UD PRN PO 11/22/17 19:15 12/22/17 19:14 Glucose (Glucose Chew Tab) 4-8 Tablets 4 Tabl... UD PRN PO 11/22/17 19:15 12/22/17 19:14 Nystatin (Mycostatin Susp) 10 ml QID PO 11/22/17 09:00 12/02/17 08:59 11/27/17 08:08 10 ML Lorazepam 0.5 mg/ Syringe 1 ml @ 1 mls/min Q8H PRN IV 11/22/17 02:30 12/22/17 02:29 11/27/17 21:32 1 MLS/MIN Acetaminophen 650 mg/Empty Bag 65 ml @ 260 mls/hr Q6H PRN IV 11/22/17 08:45 12/22/17 08:44 Aspirin (Ecotrin Tab) 81 mg HS PO 11/23/17 21:00 12/23/17 20:59 11/23/17 21:03 81 MG Insulin Aspart (novoLOG ASPART) SLIDING SCALE If C... Q6 SC 11/24/17 06:00 12/24/17 05:59 11/28/17 06:09 1 UNITS Insulin Glargine (Lantus Solostar Pen) 15 units BID SC 11/24/17 09:00 12/25/17 08:59 11/28/17 09:15 15 UNITS Ioversol (Optiray 320) 100 ml UD PRN IV 11/25/17 04:15 11/29/17 04:14 Enoxaparin [place] (Lovenox Inj) 40 mg QAM SQ 11/26/17 09:00 12/26/17 08:59 11/28/17 09:11 40 MG Promethazine HCl 25 mg/Sodium Chloride 51 ml @ 204 mls/hr Q6H PRN IV 11/25/17 10:45 12/25/17 10:44 11/26/17 16:33 204 MLS/HR Ondansetron HCl (Zofran Inj) 4 mg Q6H PRN IV 11/25/17 10:45 12/25/17 10:44 Hydromorphone HCl (Dilaudid Inj) 0.5 mg Q3H PRN IV 11/25/17 11:00 12/09/17 10:59 Future hold Hydromorphone HCl (Dilaudid Inj) 1 mg Q3H PRN IV 11/25/17 11:00 12/09/17 10:59 Future hold 11/28/17 00:31 1 MG Hydromorphone HCl (Dilaudid Inj) 2 mg Q3H PRN IV 11/25/17 11:00 12/09/17 10:59 Future hold Ioversol (Optiray 320) 100 ml UD PRN IV 11/26/17 17:15 11/30/17 17:14 Dextrose 1,000 ml @ 0 mls/hr Q0M PRN IV 11/27/17 06:57 12/27/17 06:56 Miscellaneous Information (Pharmacy Tpn/ Ppn Consult Active) 1 ea UD PRN N/A 11/27/17 07:00 12/27/17 06:59 Methylnaltrexone [place] (Relistor Inj) 12 mg Q2D@0900 SQ 11/27/17 10:00 12/27/17 09:59 11/27/17 11:26 12 MG Heparin Sodium (Porcine) (Heparin 10 Unit/ ml 5 ml Flush) 5 ml PRN PRN FLUSH 11/27/17 10:30 12/27/17 10:29 11/27/17 21:32 5 ML Nutrition (Parenteral) 0 ml @ 0 mls/hr TODAY@1600 IV 11/27/17 16:00 11/28/17 15:59 11/27/17 16:09 0 MLS/HR Sodium Phosphate 15 mmol/Sodium Chloride 255 ml @ 88 mls/hr ONE ONCE IV 11/28/17 09:30 11/28/17 12:23 11/28/17 09:22 88 MLS/HR Nutrition (Parenteral) 0 ml @ 0 mls/hr TODAY@1600 IV 11/28/17 16:00 11/29/17 15:59 Potassium Chloride 20 meq/ Prmx 100 ml @ 50 mls/hr TODAY@1030 ONCE IV 11/28/17 10:30 11/28/17 12:29 Objective Vital Signs Date Time Temp Pulse Resp B/P (MAP) Pulse Ox O2 Delivery O2 Flow Rate FiO2 11/28/17 07:45 Room Air 11/28/17 07:22 37.1 108 20 134/78 (96) 90 Room Air 11/28/17 06:33 104 18 143/89 (107) 11/28/17 06:07 96 Nasal Cannula 2.0 11/28/17 00:25 Nasal Cannula 2.0 11/27/17 22:51 36.9 105 17 148/80 (102) 96 Nasal Cannula 2.0 11/27/17 16:00 Room Air 11/27/17 15:23 37.1 109 18 154/91 (112) 96 Room Air 11/27/17 14:15 Room Air 11/27/17 14:15 36.5 110 16 154/69 (97) 94 Room Air 11/27/17 13:30 36.8 74 18 97 11/27/17 12:00 Room Air 11/27/17 11:49 36.8 74 18 134/69 (90) 97 Physical Exam General Appearance: WD/WN, no apparent distress, + obese Eyes: normal inspection, PERRL, EOMI ENT: + pertinent finding (NGT w bilious appearing fluid; on low intermittent suction (LIS)) Neck: supple, no JVD, trachea midline Respiratory/Chest: normal breath sounds, no respiratory distress, no accessory muscle use, + wheezing (fine wheezing on mid L lung ) Cardiovascular: regular rate, rhythm, no gallop, no murmur Abdomen: + abnormal bowel sounds (very little ), + distended, + tenderness Extremities: normal inspection, no pedal edema, no calf tenderness Neurologic/Psych: alert, normal mood/affect, oriented x 3 Skin: normal color, no jaundice, no rash Laboratory Results Last 24 Hours Test 11/27/17 11:21 11/27/17 18:06 11/28/17 00:03 11/28/17 05:23 Bedside Glucose 208 mg/dl 193 mg/dl 177 mg/dl White Blood Count 8.94 K/uL Red Blood Count 4.37 M/uL Hemoglobin 13.4 g/dL Hematocrit 40.0 % Mean Corpuscular Volume 91.5 fL Mean Corpuscular Hemoglobin 30.7 pg Mean Corpuscular Hemoglobin Concent 33.5 g/dl RDW Standard Deviation 46.3 fL RDW Coefficient of Variation 13.7 % Platelet Count 272 K/uL Mean Platelet Volume 9.4 fL Sodium Level 137 mmol/L Potassium Level 3.5 mmol/L Chloride Level 104 mmol/L Carbon Dioxide Level 26 mmol/L Anion Gap 7.0 mmol/L Blood Urea Nitrogen 5 mg/dl Creatinine 0.46 mg/dl Est Creatinine Clear Calc Drug Dose 230.4 ml/min Estimated GFR () 145.3 Estimated GFR (Non- 125.4 BUN/Creatinine Ratio 10.6 Random Glucose 172 mg/dl Calcium Level 7.8 mg/dl Phosphorus Level 2.4 mg/dl Magnesium Level 1.9 mg/dl Triglycerides Level 125 mg/dl Test 11/28/17 06:02 11/28/17 08:10 Bedside Glucose 165 mg/dl 183 mg/dl Assessment and Plan Patient is a 56 year old male with SBO s/p ex lap w lysis of adhesions, umbilical hernia repair; currently seen for post op ileus. Plans - NPO except sips and chips - NGT to LIS - Relistor 12mg q2days - Daily KUB; CXR today given his c/o SOB and coughing - Spoke with primary team, recommend avoiding opioids. - Encourage ambulation. - Surgery following, defer to Surgery decision to repeat ex lap eval if pt's ileus not improving. - Upon DC pt should f/u w Dr. Bridges who previously did his colonoscopies for possible repeat colonoscopy to r/o IBD causing adhesions/inflammation resulting in the SBO. I performed a history and physical examination of the patient, including specifically on physical exam - abdomen is distended.I have discussed the patient's management with [place]. Please refer to the NOTE TELLER's note for the documented findings and plan of care. Persistent post OP ileus, given Relistor yesterday with no response. CT scan few days ago showed possible partial SBO. Continue current decompression, repeat Relistor tomorrow. Further management as per surgical team.
[2017-11-28 15:11] VITALS: BP 134/66; PULSE 101; TEMP 36.9; O2SAT 91
[2017-11-28] MEDS ORDERED: CUSTOM CENTRAL PN 1 BAG IV SCH (16:00)
[2017-11-28] MEDS: LORAZEPAM INJ 0.5 MG in SYRINGE 0.75 ML IV PRN (16:06)
[2017-11-28] MEDS: ASPIRIN 81 MG ECTAB PO SCH (21:00)
[2017-11-28 22:53] VITALS: BP 157/100; PULSE 115; TEMP 36.5; O2SAT 91
[2017-11-29 00:08] VITALS: BP 151/89; PULSE 109
[2017-11-29] MEDS: INSULIN ASPART 100 UNITS/ML 3 ML PEN SC SCH ×4 (00:31→18:20)
[2017-11-29 06:03] LABS: HEMATOCRIT 38.9 % (42-52); HEMOGLOBIN 12.8 g/dL (14.0-18.0); MEAN CELL VOLUME 91.5 fL (80-100); MEAN CORPUSCULAR HEMOGLOBIN 30.1 pg (25-34); MEAN CORPUSCULAR HGB CONC 32.9 g/dl (32-36); MEAN PLATELET VOLUME 9.2 fL (7.4-10.4); PLATELET COUNT 257 K/uL (130-400); RED CELL DISTRIBUTION WIDTH CV 13.7 % (11.5-14.5); RED CELL DISTRIBUTION WIDTH SD 45.5 fL (36.4-46.3)
[2017-11-29 06:39] LABS: CALCIUM 7.7 mg/dl (8.5-10.1); CREATININE 0.44 mg/dl (0.60-1.40); PHOSPHORUS 2.6 mg/dl (2.5-4.9); POTASSIUM 3.6 mmol/L (3.5-5.1)
[2017-11-29] MEDS: LORAZEPAM INJ 0.5 MG in SYRINGE 0.75 ML IV PRN ×2 (06:46→22:38)
[2017-11-29 06:52] VITALS: BP 135/88; PULSE 103; TEMP 36.9; O2SAT 93
--- NOTE | 2017-11-29 07:10 | Surgery Progress Note ---
Surgery Progress Note Date of Service Nov 29, 2017. Subjective Post OP Day: 4 + flatus (increasing), + pain controlled, + diet (ice), No bowel movement Objective Vital Signs: Date Time Temp Pulse Resp B/P (MAP) Pulse Ox O2 Delivery O2 Flow Rate FiO2 11/29/17 06:52 36.9 103 18 135/88 (104) 93 Room Air 11/29/17 00:30 Room Air 11/29/17 00:08 109 17 151/89 (109) 11/28/17 22:53 36.5 115 18 157/100 (119) 91 Room Air 11/28/17 16:00 Room Air 11/28/17 15:11 36.9 101 18 134/66 (88) 91 Room Air 11/28/17 07:45 Room Air 11/28/17 07:22 37.1 108 20 134/78 (96) 90 Room Air Physical Exam: nasogastric drainage (1025 yesterday, 100 overnight) Abdomen: soft, + distended Incision(s): clean, dry Laboratory Results: Results Past 24 Hours Test 11/28/17 08:10 11/28/17 12:00 11/28/17 17:57 11/29/17 00:05 Range/Units Bedside Glucose 183 177 160 156 70-99 mg/dl Test 11/29/17 05:31 11/29/17 06:00 Range/Units White Blood Count 10.30 4.8-10.8 K/uL Red Blood Count 4.25 4.7-6.1 M/uL Hemoglobin 12.8 14.0-18.0 g/dL Hematocrit 38.9 42-52 % Mean Corpuscular Volume 91.5 80-100 fL Mean Corpuscular Hemoglobin 30.1 25-34 pg Mean Corpuscular Hemoglobin Concent 32.9 32-36 g/dl RDW Standard Deviation 45.5 36.4-46.3 fL RDW Coefficient of Variation 13.7 11.5-14.5 % Platelet Count 257 130-400 K/uL Mean Platelet Volume 9.2 7.4-10.4 fL Sodium Level 136 136-145 mmol/L Potassium Level 3.6 3.5-5.1 mmol/L Chloride Level 102 98-107 mmol/L Carbon Dioxide Level 27 21-32 mmol/L Anion Gap 7.0 3-11 mmol/L Blood Urea Nitrogen 8 7-18 mg/dl Creatinine 0.44 0.60-1.40 mg/dl Est Creatinine Clear Calc Drug Dose 240.3 ml/min Estimated GFR () 148.0 Estimated GFR (Non- 127.7 BUN/Creatinine Ratio 17.9 10-20 Random Glucose 179 70-99 mg/dl Calcium Level 7.7 8.5-10.1 mg/dl Phosphorus Level 2.6 2.5-4.9 mg/dl Magnesium Level 1.8 1.8-2.4 mg/dl Bedside Glucose 169 70-99 mg/dl Assessment & Plan s/p ex lap, [place] some returning bowel function, will keep NG until bowels move subQ drain removed will check TSH seen with Dr. Muro
--- NOTE | 2017-11-29 08:16 | Family Medicine Progress Note ---
Progress Note Date of Service Nov 29, 2017. Subjective Pt evaluation today including: conversation w/ patient, physical exam, chart review, conversation w/ universal branch consultant, review of inpatient medication list Pain: controlled PO Intake: NPO Voiding: no voiding problems Patient is feeling a little bit better this morning but did have a panic attack this morning. Is feeling anxious about being in the hospital Has started passing gas but has not had a bowel movement yet. Notes that his abdomen feels less bloated Constitutional: No fever, No chills Respiratory: + cough, No shortness of breath Cardiovascular: No chest pain, No edema, No palpitations Abdomen: + pain, + nausea, No vomiting, No diarrhea Male : No dysuria, No urinary frequency, No hematuria Medications Current Inpatient Medications Medications (Trade) Dose Ordered Sig/Dale Route Start Time Stop Time Status Last Admin Dose Admin Tiotropium [place] (Spiriva Handihaler Inhaler) 1 puff DAILY INH 11/22/17 09:00 12/22/17 08:59 11/28/17 09:09 1 PUFF Hydralazine HCl (HydrALAZINE INJ) 10 mg Q6H PRN IV. 11/22/17 00:30 12/22/17 00:29 Glucagon (Glucagon Inj) 1 mg UD PRN SQ 11/22/17 19:15 12/22/17 19:14 Glucose (Glucose 40% Gel) 15-30 GRAMS 15 GRAMS... UD PRN PO 11/22/17 19:15 12/22/17 19:14 Glucose (Glucose Chew Tab) 4-8 Tablets 4 Tabl... UD PRN PO 11/22/17 19:15 12/22/17 19:14 Nystatin (Mycostatin Susp) 10 ml QID PO 11/22/17 09:00 12/02/17 08:59 11/28/17 16:30 10 ML Lorazepam 0.5 mg/ Syringe 1 ml @ 1 mls/min Q8H PRN IV 11/22/17 02:30 12/22/17 02:29 11/29/17 06:46 1 MLS/MIN Acetaminophen 650 mg/Empty Bag 65 ml @ 260 mls/hr Q6H PRN IV 11/22/17 08:45 12/22/17 08:44 Aspirin (Ecotrin Tab) 81 mg HS PO 11/23/17 21:00 12/23/17 20:59 11/23/17 21:03 81 MG Insulin Aspart (novoLOG ASPART) SLIDING SCALE If C... Q6 SC 11/24/17 06:00 12/24/17 05:59 11/29/17 06:16 1 UNITS Insulin Glargine (Lantus Solostar Pen) 15 units BID SC 11/24/17 09:00 12/25/17 08:59 11/28/17 21:55 15 UNITS Enoxaparin Sodium (Lovenox Inj) 40 mg QAM SQ 11/26/17 09:00 12/26/17 08:59 11/28/17 09:11 40 MG Promethazine HCl 25 mg/Sodium Chloride 51 ml @ 204 mls/hr Q6H PRN IV 11/25/17 10:45 12/25/17 10:44 11/26/17 16:33 204 MLS/HR Ondansetron HCl (Zofran Inj) 4 mg Q6H PRN IV 11/25/17 10:45 12/25/17 10:44 Hydromorphone HCl (Dilaudid Inj) 0.5 mg Q3H PRN IV 11/25/17 11:00 12/09/17 10:59 Future hold Hydromorphone HCl (Dilaudid Inj) 1 mg Q3H PRN IV 11/25/17 11:00 12/09/17 10:59 Future hold 11/28/17 21:58 1 MG Hydromorphone HCl (Dilaudid Inj) 2 mg Q3H PRN IV 11/25/17 11:00 12/09/17 10:59 Future hold Ioversol (Optiray 320) 100 ml UD PRN IV 11/26/17 17:15 11/30/17 17:14 Dextrose 1,000 ml @ 0 mls/hr Q0M PRN IV 11/27/17 06:57 12/27/17 06:56 Miscellaneous Information (Pharmacy Tpn/ Ppn Consult Active) 1 ea UD PRN N/A 11/27/17 07:00 12/27/17 06:59 Methylnaltrexone [place] (Relistor Inj) 12 mg Q2D@0900 SQ 11/27/17 10:00 3/8/18 09:59 11/27/17 11:26 12 MG Heparin Sodium (Porcine) (Heparin 10 Unit/ ml 5 ml Flush) 5 ml PRN PRN FLUSH 11/27/17 10:30 12/27/17 10:29 11/29/17 05:40 5 ML Nutrition (Parenteral) 0 ml @ 0 mls/hr TODAY@1600 IV 11/28/17 16:00 11/29/17 15:59 11/28/17 16:07 0 MLS/HR Objective Vital Signs Date Time Temp Pulse Resp B/P (MAP) Pulse Ox O2 Delivery O2 Flow Rate FiO2 11/29/17 06:52 36.9 103 18 135/88 (104) 93 Room Air 11/29/17 00:30 Room Air 11/29/17 00:08 109 17 151/89 (109) 11/28/17 22:53 36.5 115 18 157/100 (119) 91 Room Air 11/28/17 16:00 Room Air 11/28/17 15:11 36.9 101 18 134/66 (88) 91 Room Air Physical Exam Notes: General Appearance: WD/WN, no apparent distress, + obese, + pertinent finding ( NG tube in place) ENT: pharynx normal Neck: supple, no carotid bruits, trachea midline Respiratory/Chest: lungs clear, no respiratory distress, no accessory muscle use Cardiovascular: regular rate, rhythm, no edema, no murmur Abdomen: soft, + abnormal bowel sounds (decreased), + distended, + tenderness ( mild tenderness throughout and most prominent in the epigastric region) Extremities: non-tender, no pedal edema, no calf tenderness Neurologic/Psychiatric: alert, normal mood/affect, oriented x 3 Skin: normal color, warm/dry, no rash Laboratory Results Results Past 24 Hours Test 11/28/17 12:00 11/28/17 17:57 11/29/17 00:05 11/29/17 05:31 Range/Units Bedside Glucose 177 160 156 70-99 mg/dl White Blood Count 10.30 4.8-10.8 K/uL Red Blood Count 4.25 4.7-6.1 M/uL Hemoglobin 12.8 14.0-18.0 g/dL Hematocrit 38.9 42-52 % Mean Corpuscular Volume 91.5 80-100 fL Mean Corpuscular Hemoglobin 30.1 25-34 pg Mean Corpuscular Hemoglobin Concent 32.9 32-36 g/dl RDW Standard Deviation 45.5 36.4-46.3 fL RDW Coefficient of Variation 13.7 11.5-14.5 % Platelet Count 257 130-400 K/uL Mean Platelet Volume 9.2 7.4-10.4 fL Sodium Level 136 136-145 mmol/L Potassium Level 3.6 3.5-5.1 mmol/L Chloride Level 102 98-107 mmol/L Carbon Dioxide Level 27 21-32 mmol/L Anion Gap 7.0 3-11 mmol/L Blood Urea Nitrogen 8 7-18 mg/dl Creatinine 0.44 0.60-1.40 mg/dl Est Creatinine Clear Calc Drug Dose 240.3 ml/min Estimated GFR () 148.0 Estimated GFR (Non- 127.7 BUN/Creatinine Ratio 17.9 10-20 Random Glucose 179 70-99 mg/dl Calcium Level 7.7 8.5-10.1 mg/dl Phosphorus Level 2.6 2.5-4.9 mg/dl Magnesium Level 1.8 1.8-2.4 mg/dl Test 11/29/17 06:00 11/29/17 07:24 Range/Units Bedside Glucose 169 70-99 mg/dl Assessment and Plan 56 year old male with CAD, COPD, DMII, HTN, HLD and chronic back pain admitted for small bowel obstruction. PSBO s/p Exp Lap 11/25/17 lysis of adhesions - 1st CT abdo: multiple distended gas and fluid-filled loops of small bowel seen throughout the abdomen. The distal ileal loops are decompressed and there is an apparent transition point within the small bowel at the right mid abdomen - 11/25/2017: Repeat CT abd /pelvis concerning for PSBO 2/2 adhesions. - NG tube w suction, NPO, ice chips - IV ondansetron and phenergan PRN nausea - IV pepcid for gastritis and reflux - IV Dilaudid SHUTTLER pump switched to dilaudid q3 prn due to constipation - PICC line with tpn feeds. Monitor electrolytes and replace as needed. Ileus secondary to opioid use - relistor 12mg q2 days - daily KUB (persistent ileus in yesterdays KUB) - stop SHUTTLER and limit opioid use - On TPN - encourage ambulation Productive Cough - differential includes fluid overload vs bronchitis vs reflux - CXR showed mild central vascular congestion w/out any focal consolidation - consider echo - afebrile and without a WCC - encourage incentive spirometer Hypophosphatemia (resolved) - phos 2.6 yesterday - continue to monitor Thrush - Nystatin swish and spit CAD/HTN - aspirin and lisinopril help as patient NPO - blood pressure well controlled - IV hydralazine 10mg q6h for SBP >160 Tachycardia (resolving) - CT for PE negative, trop negative and lactic acid negative - afebrile, no subjective infectious symptoms and without a wcc - continue to closely monitor COPD - Continue Spiriva DMII - Metformin and glimepiride held - ISS with check ac/hs - blood sugars better controlled with 15 units BID Chronic back pain - Hold Percocet, naproxen, Flexeril - IV dilaudid as above Anxiety - Alprazolam and nortriptyline held - IV Ativan 0.5mg q8h PRN anxiety VTE ppx - SCDs - lovenox 40mg subq FULL CODE Continued [facility] stay due to: multiple IV medications needed Discharge planning: uncertain Reviewed: Pt Seen/Exam by Me History had bowel movement this am. Constitutional: denies: fever Respiratory: negative: short of breath Cardiovascular: denies chest pain General Appearance: no apparent distress Ears, Nose, Throat: other (NGT in place) Respiratory: no respiratory distress, decreased breath sounds (base) Cardiovascular: regular rate, rhythm Gastrointestinal: normal bowel sounds, soft, distended, tenderness (incisional) Neurologic/Psychiatric: alert, oriented x 3 Assessment/Plan Resident Physician Supervision Note: I independently interviewed and examined the patient and verified the salas history and physical, reviewed labs and image studies, discussed the case with the resident Dr. Parisi and agree with the findings and care plan.
[2017-11-29] MEDS: NYSTATIN SUSP 500,000 U/5 ML UDC PO SCH ×4 (08:54→21:14)
[2017-11-29] MEDS: ENOXAPARIN 40 MG/0.4 ML SYR SQ SCH (08:55)
[2017-11-29] MEDS: METHYLNALTREXONE BROMIDE INJ 12 MG/0.6 ML SYR SQ SCH (08:56)
[2017-11-29] MEDS: INSULIN GLARGINE SOLOSTAR 100 UNITS/ML 3 ML PEN SC SCH ×2 (08:57→21:13)
--- NOTE | 2017-11-29 09:26 | DIAGNOSTIC IMAGING REPORT ---
KUB CLINICAL HISTORY: Ileus COMPARISON STUDY: 11/28/2017 FINDINGS: Postsurgical changes are present within the lumbar spine. There are dilated left mid abdominal small bowel loops measuring up to 61 mm in diameter. There is a nasogastric tube within the stomach. The colon is decompressed. IMPRESSION: Persistent dilated left abdominal small bowel loops. It is not possible on the basis of this radiograph to differentiate a small bowel ileus from a small bowel obstruction. Electronically signed by: Boubacar Olmedo M.D. 11/29/2017 9:25 AM Dictated Date/Time: 11/29/2017 9:23 AM
[2017-11-29] MEDS: TIOTROPIUM BROMIDE 5 PUFF/90 MCG INH INH SCH (10:10)
--- NOTE | 2017-11-29 10:34 | Gastroenterology Progress Note ---
Progress Note Date of Service: Nov 29, 2017 Subjective Pt evaluation today including: conversation w/ patient, conversation w/ family , physical exam, chart review, lab review, review of inpatient medication list Pt is doing better, not as much abd pain, nausea. He is passing flatus, and having BMs this AM. NGT output 1L overnight Review of Systems Constitutional: No fever, No chills Respiratory: No cough, No shortness of breath Cardiac: No chest pain Abdomen: + pain (improved), No nausea, No vomiting Medications Current Inpatient Medications Medications (Trade) Dose Ordered Sig/Dale Route Start Time Stop Time Status Last Admin Dose Admin Tiotropium [place] (Spiriva Handihaler Inhaler) 1 puff DAILY INH 11/22/17 09:00 12/22/17 08:59 11/29/17 10:10 1 PUFF Hydralazine HCl (HydrALAZINE INJ) 10 mg Q6H PRN IV. 11/22/17 00:30 12/22/17 00:29 Glucagon (Glucagon Inj) 1 mg UD PRN SQ 11/22/17 19:15 12/22/17 19:14 Glucose (Glucose 40% Gel) 15-30 GRAMS 15 GRAMS... UD PRN PO 11/22/17 19:15 12/22/17 19:14 Glucose (Glucose Chew Tab) 4-8 Tablets 4 Tabl... UD PRN PO 11/22/17 19:15 12/22/17 19:14 Nystatin (Mycostatin Susp) 10 ml QID PO 11/22/17 09:00 12/02/17 08:59 11/29/17 08:54 10 ML Lorazepam 0.5 mg/ Syringe 1 ml @ 1 mls/min Q8H PRN IV 11/22/17 02:30 12/22/17 02:29 11/29/17 06:46 1 MLS/MIN Acetaminophen 650 mg/Empty Bag 65 ml @ 260 mls/hr Q6H PRN IV 11/22/17 08:45 12/22/17 08:44 Aspirin (Ecotrin Tab) 81 mg HS PO 11/23/17 21:00 12/23/17 20:59 11/23/17 21:03 81 MG Insulin Aspart (novoLOG ASPART) SLIDING SCALE If C... Q6 SC 11/24/17 06:00 3/5/18 05:59 11/29/17 06:16 1 UNITS Insulin Glargine (Lantus Solostar Pen) 15 units BID SC 11/24/17 09:00 12/25/17 08:59 11/29/17 08:57 15 UNITS Enoxaparin Sodium (Lovenox Inj) 40 mg QAM SQ 11/26/17 09:00 12/26/17 08:59 11/29/17 08:55 40 MG Promethazine HCl 25 mg/Sodium Chloride 51 ml @ 204 mls/hr Q6H PRN IV 11/25/17 10:45 12/25/17 10:44 11/26/17 16:33 204 MLS/HR Ondansetron HCl (Zofran Inj) 4 mg Q6H PRN IV 11/25/17 10:45 12/25/17 10:44 Hydromorphone HCl (Dilaudid Inj) 0.5 mg Q3H PRN IV 11/25/17 11:00 12/09/17 10:59 Future hold Hydromorphone HCl (Dilaudid Inj) 1 mg Q3H PRN IV 11/25/17 11:00 12/09/17 10:59 Future hold 11/28/17 21:58 1 MG Hydromorphone HCl (Dilaudid Inj) 2 mg Q3H PRN IV 11/25/17 11:00 12/09/17 10:59 Future hold Ioversol (Optiray 320) 100 ml UD PRN IV 11/26/17 17:15 11/30/17 17:14 Dextrose 1,000 ml @ 0 mls/hr Q0M PRN IV 11/27/17 06:57 12/27/17 06:56 Miscellaneous Information (Pharmacy Tpn/ Ppn Consult Active) 1 ea UD PRN N/A 11/27/17 07:00 12/27/17 06:59 Methylnaltrexone [place] (Relistor Inj) 12 mg Q2D@0900 SQ 11/27/17 10:00 12/27/17 09:59 11/29/17 08:56 12 MG Heparin Sodium (Porcine) (Heparin 10 Unit/ ml 5 ml Flush) 5 ml PRN PRN FLUSH 11/27/17 10:30 12/27/17 10:29 2/8/18 05:40 5 ML Nutrition (Parenteral) 0 ml @ 0 mls/hr TODAY@1600 IV 11/28/17 16:00 11/29/17 15:59 11/28/17 16:07 0 MLS/HR Nutrition (Parenteral) 0 ml @ 0 mls/hr TODAY@1600 IV 11/29/17 16:00 11/30/17 15:59 Objective Vital Signs Date Time Temp Pulse Resp B/P (MAP) Pulse Ox O2 Delivery O2 Flow Rate FiO2 11/29/17 08:10 Room Air 11/29/17 06:52 36.9 103 18 135/88 (104) 93 Room Air 11/29/17 00:30 Room Air 11/29/17 00:08 109 17 151/89 (109) 11/28/17 22:53 36.5 115 18 157/100 (119) 91 Room Air 11/28/17 16:00 Room Air 11/28/17 15:11 36.9 101 18 134/66 (88) 91 Room Air Physical Exam General Appearance: WD/WN, no apparent distress, + obese Eyes: normal inspection, PERRL, EOMI Neck: supple, no JVD, trachea midline Respiratory/Chest: normal breath sounds, no respiratory distress, no accessory muscle use Cardiovascular: regular rate, rhythm, no gallop, no murmur Abdomen: non tender, + abnormal bowel sounds (hypoactive ), + distended Neurologic/Psych: alert, normal mood/affect, oriented x 3 Skin: normal color, no jaundice, no rash Laboratory Results Last 24 Hours Test 11/28/17 12:00 11/28/17 17:57 11/29/17 00:05 11/29/17 05:31 Bedside Glucose 177 mg/dl 160 mg/dl 156 mg/dl White Blood Count 10.30 K/uL Red Blood Count 4.25 M/uL Hemoglobin 12.8 g/dL Hematocrit 38.9 % Mean Corpuscular Volume 91.5 fL Mean Corpuscular Hemoglobin 30.1 pg Mean Corpuscular Hemoglobin Concent 32.9 g/dl RDW Standard Deviation 45.5 fL RDW Coefficient of Variation 13.7 % Platelet Count 257 K/uL Mean Platelet Volume 9.2 fL Sodium Level 136 mmol/L Potassium Level 3.6 mmol/L Chloride Level 102 mmol/L Carbon Dioxide Level 27 mmol/L Anion Gap 7.0 mmol/L Blood Urea Nitrogen 8 mg/dl Creatinine 0.44 mg/dl Est Creatinine Clear Calc Drug Dose 240.3 ml/min Estimated GFR () 148.0 Estimated GFR (Non- 127.7 BUN/Creatinine Ratio 17.9 Random Glucose 179 mg/dl Calcium Level 7.7 mg/dl Phosphorus Level 2.6 mg/dl Magnesium Level 1.8 mg/dl Test 11/29/17 06:00 11/29/17 07:24 Bedside Glucose 169 mg/dl Thyroid Stimulating Hormone (TSH) 1.170 uIu/ml Assessment and Plan Patient is a 56 year old male with SBO s/p ex lap w lysis of adhesions, umbilical hernia repair; currently seen for post op ileus. He is passing flatus and BMs this AM. NGT output decreased to 1L. KUB showed persistent L abd dilated small bowel loops. Plans - Diet advancement and timing of NGT DC per Surgery - Relistor 12mg q2days, ok to stop after today's dose. - KUB tomorrow. - Spoke with primary team, recommend avoiding opioids. - Encourage ambulation. - Surgery following. - Upon DC pt should f/u w Dr. Bridges who previously did his colonoscopies for possible repeat colonoscopy to r/o IBD causing adhesions/inflammation resulting in the SBO. I performed a history and physical examination of the patient. I have discussed the patient's case, impression and plan with Therese CARRANZA. Her note reflects my findings and plan. Much better. NGT is out. Diet advanced as per surgery. Ashish Douglas MD
[2017-11-29 15:36] VITALS: BP 149/83; PULSE 104; TEMP 37.1; O2SAT 92
[2017-11-29] MEDS ORDERED: CUSTOM CENTRAL PN 1 BAG IV SCH (16:00)
[2017-11-29] MEDS: HYDROmorphone INJ 1 MG/ML SYR IV PRN (19:33)
[2017-11-29] MEDS: ASPIRIN 81 MG ECTAB PO SCH (21:00)
[2017-11-29 23:06] VITALS: BP 171/93; PULSE 109; TEMP 37.5; O2SAT 92
[2017-11-30] MEDS ORDERED: COUGH DROP (SUGAR FREE) LOZ 24 LOZ/1 BOX LOZ ONE (00:03)
[2017-11-30] MEDS: INSULIN ASPART 100 UNITS/ML 3 ML PEN SC SCH ×5 (00:08→20:43)
[2017-11-30] MEDS ORDERED: COUGH DROP (SUGAR FREE) LOZ 24 LOZ/1 BOX LOZ PRN (00:15)
[2017-11-30] MEDS: HYDROmorphone INJ 1 MG/ML SYR IV PRN (02:40)
[2017-11-30] MEDS: ONDANSETRON INJ 2 MG/ML 2 ML VIAL IV PRN (04:01)
[2017-11-30 06:44] LABS: CREATININE 0.5 mg/dl (0.60-1.40); POTASSIUM 3.9 mmol/L (3.5-5.1)
[2017-11-30 06:53] LABS: PHOSPHORUS 3.6 mg/dl (2.5-4.9)
--- NOTE | 2017-11-30 07:15 | Surgery Progress Note ---
Surgery Progress Note Date of Service Nov 30, 2017. Subjective + complaints (dry mouth), + bowel movement (multiple loose), No nausea Objective Vital Signs: Date Time Temp Pulse Resp B/P (MAP) Pulse Ox O2 Delivery O2 Flow Rate FiO2 11/29/17 23:45 Room Air 11/29/17 23:06 37.5 109 17 171/93 (119) 92 Room Air 11/29/17 16:00 Room Air 11/29/17 15:36 37.1 104 20 149/83 (105) 92 Room Air 11/29/17 08:10 Room Air Abdomen: soft, + distended (mildly) Laboratory Results: Results Past 24 Hours Test 11/29/17 07:24 11/29/17 12:12 11/29/17 18:00 11/29/17 23:54 Range/Units Thyroid Stimulating Hormone (TSH) 1.170 0.300-4.500 uIu/ml Bedside Glucose 192 155 154 70-99 mg/dl Test 11/30/17 05:51 11/30/17 05:55 Range/Units Sodium Level 137 136-145 mmol/L Potassium Level 3.9 3.5-5.1 mmol/L Chloride Level 103 98-107 mmol/L Carbon Dioxide Level 27 21-32 mmol/L Anion Gap 7.0 3-11 mmol/L Blood Urea Nitrogen 8 7-18 mg/dl Creatinine 0.50 0.60-1.40 mg/dl Est Creatinine Clear Calc Drug Dose 207.8 ml/min Estimated GFR () 140.4 Estimated GFR (Non- 121.1 BUN/Creatinine Ratio 16.6 10-20 Random Glucose 143 70-99 mg/dl Calcium Level 8.0 8.5-10.1 mg/dl Phosphorus Level 3.6 2.5-4.9 mg/dl Magnesium Level 1.9 1.8-2.4 mg/dl Bedside Glucose 147 70-99 mg/dl Assessment & Plan s/p ex lap, [place] NG removed yesterday when bowels began moving multiple bowel movements overnight will start on clears cont TPN ambulate
[2017-11-30 07:56] VITALS: BP 132/84; PULSE 112; TEMP 37.2; O2SAT 92
[2017-11-30] MEDS: TIOTROPIUM BROMIDE 5 PUFF/90 MCG INH INH SCH (08:45)
[2017-11-30] MEDS: ENOXAPARIN 40 MG/0.4 ML SYR SQ SCH (08:46)
[2017-11-30] MEDS: INSULIN GLARGINE SOLOSTAR 100 UNITS/ML 3 ML PEN SC SCH ×2 (08:47→20:42)
[2017-11-30] MEDS: NYSTATIN SUSP 500,000 U/5 ML UDC PO SCH ×4 (08:48→20:42)
[2017-11-30 08:53] VITALS: O2SAT 92
[2017-11-30] MEDS ORDERED: NURSING VERBAL MED ORDER ONE (09:15)
[2017-11-30] MEDS: LORAZEPAM INJ 0.5 MG in SYRINGE 0.75 ML IV PRN (13:29)
--- NOTE | 2017-11-30 13:51 | SURGERY PROGRESS NOTE ---
DATE: 11/30/2017 The patient was seen. He is resting comfortably this morning. He is sitting in a bed. His family, few of them are at bedside. He is approximately 5 days status post exploratory lap and lysis of adhesions. Yesterday, he started moving his bowels. The NG tube was taken out last evening. He has had multiple bowel movements. His last vitals showed a temperature of 37.2, pulse 112, respirations 18, blood pressure 132/84, and O2 sats 92% on room air. I&O, he had 225 mL of urine overnight and his fluid intake has been fairly balanced. His abdomen is pretty much unchanged. At this point, he is tolerating a diet and we will plan to increase it if he has no further nausea or any other emesis and cut down his hyperalimentation tomorrow. I suspect he will be in the hospital a couple more days.
[2017-11-30 14:20] VITALS: BP_SYST 138; BP_SYST 146; BP_SYST 168; BP_DIAS 82; BP_DIAS 88; BP_DIAS 98; PULSE 107; TEMP 37.1; O2SAT 91
[2017-11-30 14:39] LABS: HEMATOCRIT 42.9 % (42-52); HEMOGLOBIN 14.1 g/dL (14.0-18.0)
[2017-11-30] MEDS ORDERED: SODIUM CHLORIDE 0.65% NA SOLN 45 ML (OCEAN) PRN (15:00)
[2017-11-30 15:01] LABS: CALCIUM 8.8 mg/dl (8.5-10.1); CREATININE 0.68 mg/dl (0.60-1.40); POTASSIUM 4.6 mmol/L (3.5-5.1)
--- NOTE | 2017-11-30 15:13 | Family Medicine Progress Note ---
Progress Note Date of Service Nov 30, 2017. Subjective Pt evaluation today including: conversation w/ patient, physical exam, chart review, lab review Pain: 12/29 PO Intake: to start clear today Voiding: no voiding problems Patient was evaluated in the am and he stated that he was feeling very tired as he has not been sleeping very well at all. He states that his bowels have been moving throughout the night and he had a BM this morning which was non bloody. He does note that he has a "sudden need to go to the bathroom" and sometimes finds it difficult to get up quickly enough to go to the bathroom. This afternoon a student had found him apparently kneeling on the floor. When I spoke with the patient he stated that he had gotten out of bed to go to the bathroom and he felt his knees buckled and he fell forward. He denied any chest pain/ SOB/ dizziness or syncope with the episode. He also did not have any pain medication or sedating medication all morning. He states that he did not feel dizzy or confused after the episode. Constitutional: No fever Eyes: No worsening of vision ENT: + nasal symptoms (rhinorrhea), No hearing loss Respiratory: No cough, No sputum, No wheezing, No shortness of breath, No dyspnea on exertion Cardiovascular: No chest pain Abdomen: + diarrhea, + problem reported (distention improving ), No pain, No nausea, No vomiting, No constipation, No GI bleeding Musculoskeletal: No joint pain, No muscle pain Male : No dysuria, No incontinence, No hematuria Neurologic: + balance problems, No weakness Psychiatric: No depression symptoms, No anxiety Heme: No abnormal bleeding/bruising Endo: No fatigue Skin: No rash Medications Medications Administered Medications (Trade) Dose Ordered Sig/Dale Route Start Time Stop Time Status Last Admin Dose Admin Sodium Chloride 1,000 ml @ 999 mls/hr Q1H1M STAT IV 11/21/17 20:30 11/21/17 21:30 DC 11/21/17 20:30 999 MLS/HR Morphine Sulfate (MoRPHine SULFATE INJ) 6 mg NOW STAT IV 11/21/17 22:16 11/21/17 22:17 DC 11/21/17 22:23 6 MG Ondansetron HCl (Zofran Inj) 4 mg NOW STAT IV 11/21/17 22:16 11/21/17 22:17 DC 11/21/17 22:16 4 MG Morphine Sulfate (MoRPHine SULFATE INJ) 4 mg NOW STAT IV 11/21/17 23:25 11/21/17 23:26 DC 11/21/17 23:38 4 MG Sodium Chloride 500 ml @ 999 mls/hr Q31M STAT IV 11/21/17 23:36 11/22/17 00:06 DC 11/21/17 23:36 999 MLS/HR Ondansetron HCl (Zofran Inj) 4 mg Q6H PRN IV 11/22/17 00:30 11/28/17 09:36 DC 11/28/17 06:30 4 MG Tiotropium [place] (Spiriva Handihaler Inhaler) 1 puff DAILY INH 11/22/17 09:00 12/22/17 08:59 11/29/17 10:10 1 PUFF Morphine Sulfate (MoRPHine SULFATE INJ) 4 mg Q4H PRN IV 11/22/17 00:30 11/25/17 10:41 DC 11/25/17 05:16 4 MG Insulin Aspart (novoLOG ASPART) SLIDING SCALE If C... Q6 SC 11/22/17 02:30 11/23/17 15:08 DC 11/23/17 12:21 7 UNITS Nystatin (Mycostatin Susp) 10 ml QID PO 11/22/17 09:00 12/02/17 08:59 11/29/17 21:14 10 ML Sodium Chloride 1,000 ml @ 125 mls/hr Q8H IV 11/22/17 00:45 11/25/17 10:43 DC 11/25/17 00:38 125 MLS/HR Lorazepam 0.5 mg/ Syringe 1 ml @ 1 mls/min Q8H PRN IV 11/22/17 02:30 12/22/17 02:29 11/30/17 13:29 1 MLS/MIN Insulin Glargine (Lantus Solostar Pen) 15 units DAILY SC 11/23/17 09:00 11/23/17 16:31 DC 11/23/17 08:36 15 UNITS Insulin Aspart (novoLOG ASPART) SLIDING SCALE If C... ACHS SC 11/23/17 17:15 11/24/17 06:08 DC 11/23/17 21:12 3 UNITS Potassium Chloride (Klor-Con Tab) 40 meq NOW ONCE PO 11/23/17 16:00 11/23/17 16:01 DC 11/23/17 16:19 40 MEQ Aspirin (Ecotrin Tab) 81 mg HS PO 11/23/17 21:00 12/23/17 20:59 11/23/17 21:03 81 MG Simethicone (Mylicon Chew Tab) 80 mg Q6H PRN PO 11/24/17 01:45 11/25/17 10:41 DC 11/24/17 03:54 80 MG Insulin Aspart (novoLOG ASPART) SLIDING SCALE If C... Q6 SC 11/24/17 06:00 11/30/17 09:09 DC 11/30/17 00:08 1 UNITS Insulin Glargine (Lantus Solostar Pen) 15 units BID SC 11/24/17 09:00 12/25/17 08:59 11/30/17 08:47 15 UNITS Potassium Phosphate 15 mmol/ Sodium Chloride 255 ml @ 88 mls/hr 1030 ONCE IV 11/24/17 10:30 11/24/17 13:23 DC 11/24/17 13:13 88 MLS/HR Potassium Chloride/Dextrose/ Sod Cl 1,000 ml @ 125 mls/hr Q8H IV 11/25/17 12:00 11/25/17 18:23 DC 11/25/17 15:10 125 MLS/HR Cefoxitin Sodium 1000 mg/Dextrose 60 ml @ 100 mls/hr Q8H IV 11/25/17 16:00 11/26/17 08:35 DC 11/26/17 08:22 100 MLS/HR Enoxaparin Sodium (Lovenox Inj) 40 mg QAM SQ 11/26/17 09:00 12/26/17 08:59 11/30/17 08:46 40 MG Promethazine HCl 25 mg/Sodium Chloride 51 ml @ 204 mls/hr Q6H PRN IV 11/25/17 10:45 12/25/17 10:44 11/26/17 16:33 204 MLS/HR Ondansetron HCl (Zofran Inj) 4 mg Q6H PRN IV 11/25/17 10:45 12/25/17 10:44 11/30/17 04:01 4 MG Hydromorphone HCl (Dilaudid Inj) 0.25 mg Q5M PRN IV 11/25/17 10:45 11/25/17 16:00 DC 11/25/17 11:40 0.25 MG Hydromorphone HCl (Dilaudid Molding Machine Operator) 25 mg PRN PRN IV 11/25/17 10:45 11/27/17 14:48 DC 11/27/17 14:14 25 MG Hydromorphone HCl (Dilaudid Inj) 1 mg Q3H PRN IV 11/25/17 11:00 12/09/17 10:59 Future hold 11/30/17 02:40 1 MG Hydromorphone HCl (Dilaudid Inj) 0.25 mg UD PRN IV 11/25/17 11:45 11/25/17 17:00 DC 11/25/17 11:33 0.25 MG Potassium Chloride/Sodium Chloride 1,000 ml @ 125 mls/hr Q8H IV 11/25/17 19:00 11/27/17 15:59 DC 11/27/17 11:06 125 MLS/HR Famotidine 20 mg/ Syringe 5 ml @ 2.5 mls/min Q12H IV 11/26/17 18:00 11/27/17 13:27 DC 11/27/17 05:48 2.5 MLS/MIN Methylnaltrexone [place] (Relistor Inj) 12 mg Q2D@0900 SQ 11/27/17 10:00 11/29/17 10:32 DC 11/29/17 08:56 12 MG Heparin Sodium (Porcine) (Heparin 10 Unit/ ml 5 ml Flush) 5 ml PRN PRN FLUSH 11/27/17 10:30 12/27/17 10:29 11/30/17 05:52 5 ML Nutrition (Parenteral) 0 ml @ 0 mls/hr TODAY@1600 IV 11/27/17 16:00 11/28/17 15:59 DC 11/27/17 16:09 0 MLS/HR Miscellaneous (Stop Order) 1 ea ONE ONCE N/A 11/27/17 15:59 11/27/17 16:00 DC 11/27/17 16:09 1 EA Sodium Phosphate 15 mmol/Sodium Chloride 255 ml @ 88 mls/hr ONE ONCE IV 11/28/17 09:30 11/28/17 12:23 DC 11/28/17 09:22 88 MLS/HR Nutrition (Parenteral) 0 ml @ 0 mls/hr TODAY@1600 IV 11/28/17 16:00 11/29/17 15:59 DC 11/28/17 16:07 0 MLS/HR Potassium Chloride 20 meq/ Prmx 100 ml @ 50 mls/hr TODAY@1030 ONCE IV 11/28/17 10:30 11/28/17 12:29 DC 11/28/17 12:35 50 MLS/HR Nutrition (Parenteral) 0 ml @ 0 mls/hr TODAY@1600 IV 11/29/17 16:00 11/30/17 15:59 11/29/17 16:17 0 MLS/HR Menthol (Nice Destiny) 24 destiny STK-MED ONCE DESTINY 11/30/17 00:03 11/30/17 00:04 DC 11/30/17 00:11 24 DESTINY Insulin Aspart (novoLOG ASPART) SLIDING SCALE If C... ACHS SC 11/30/17 12:00 12/30/17 11:59 11/30/17 13:02 2 UNITS Objective Vital Signs Date Time Temp Pulse Resp B/P (MAP) Pulse Ox O2 Delivery O2 Flow Rate FiO2 11/30/17 14:20 37.1 107 18 138/98 (111) 91 Room Air 146/88 (107) 168/82 (110) 11/30/17 08:53 92 Room Air 11/30/17 08:35 Room Air 11/30/17 07:56 37.2 112 18 132/84 (100) 92 Room Air 11/29/17 23:45 Room Air 11/29/17 23:06 37.5 109 17 171/93 (119) 92 Room Air 11/29/17 16:00 Room Air 11/29/17 15:36 37.1 104 20 149/83 (105) 92 Room Air Physical Exam General Appearance: no apparent distress Eyes: normal inspection, PERRL, EOMI ENT: normal ENT inspection Neck: supple, no adenopathy, no JVD, no carotid bruits, trachea midline Respiratory/Chest: no respiratory distress, no accessory muscle use, + decreased breath sounds (bilat bases) Cardiovascular: no JVD, no murmur, + tachycardia Abdomen: normal bowel sounds, + distended (mild), + tenderness (mild around the incision site) Extremities: normal range of motion, non-tender, no pedal edema, no calf tenderness Neurologic/Psychiatric: alert, oriented x 3, + pertinent finding (anxiety) Skin: normal color, warm/dry, no rash, + pertinent finding (dressing on wound noted and is clean and dry) Laboratory Results Results Past 24 Hours Test 11/29/17 18:00 11/29/17 23:54 11/30/17 05:51 11/30/17 05:55 Range/Units Bedside Glucose 155 154 147 70-99 mg/dl Sodium Level 137 136-145 mmol/L Potassium Level 3.9 3.5-5.1 mmol/L Chloride Level 103 98-107 mmol/L Carbon Dioxide Level 27 21-32 mmol/L Anion Gap 7.0 3-11 mmol/L Blood Urea Nitrogen 8 7-18 mg/dl Creatinine 0.50 0.60-1.40 mg/dl Est Creatinine Clear Calc Drug Dose 207.8 ml/min Estimated GFR () 140.4 Estimated GFR (Non- 121.1 BUN/Creatinine Ratio 16.6 10-20 Random Glucose 143 70-99 mg/dl Calcium Level 8.0 8.5-10.1 mg/dl Phosphorus Level 3.6 2.5-4.9 mg/dl Magnesium Level 1.9 1.8-2.4 mg/dl Test 11/30/17 12:02 11/30/17 14:03 11/30/17 14:22 Range/Units Bedside Glucose 186 190 70-99 mg/dl Hemoglobin 14.1 14.0-18.0 g/dL Hematocrit 42.9 42-52 % Assessment and Plan 56 year old male with COPD, DMII, anxiety and chronic back pain admitted for small bowel obstruction and s/p lysis of adhesions. Patient is currently transitioning from TPN to PO slowly. Partial SBO POD 5 lysis of adhesions - NG tube d/c 11/29/2017 and patient is to trial clear fluid diet today - TPN continued in the interm until patient tolerates a full diet; monitor electrolytes and replete accordingly - IV zofran/ phenergen for nausea - Dilaudid prn for pain - Relistor 12 mg q2 days - Considering the unique nature of the adhesions it is recommended by GI that the patient have a follow up colonoscopy with Dr mariee in outpatient setting - Appreciate rec from GI/ surgery - encourage incentive remy Fall - patient was assessed after fall and most likely mechanical however EKG and labs were ordered, no abnormalities on physical exam were noted - EKG was unchanged/ no ischemic changes - BSG 190 - BMP and mg pending and if low will replete - Discussed placing bed to floor, reassess fall risk - discussed getting him a bigger commode so that if he does have to gurrola to the bathroom a commode can be close by Rhinorrhea - notes rhinorrhea/ black mucus from the NG tube - Saline nasal spray provided VERNA - Patient states he does take alprazolam prn at home with nortriptyline - Unable to sleep because of his anxiety, Vistaril HS for insomnia - Nortriptyline has been held as unable to take PO however once able will restart HTN - aspirin and lisinopril 2.5 mg held as patient NPO - blood pressure well controlled - IV hydralazine 10mg q6h for SBP >160 COPD controlled - Continue Spiriva DMII - Metformin 1000 mg bid and glimepiride 8 mg daily held - ISS with check ac/hs - Lantus BID, adjust as patient increases diet - patient is not currently on a statin and may benefit Chronic back pain; chronic narcotic use - Patient on chronic Percocet and Naprosyn for back pain at home - Flexeril 10 mg tid held - IV dilaudid as above; once able to tolerate PO will change to his home regimen as the patient's rhinorrhea/ tachy may be secondary to mild withdrawal symptoms? along with anxiety - PDMP reviewed and patient does have regular monthly rx for these medications without suspicious behavior DVT prophylaxis - SCD and Lovenox 40 meq FULL CODE Continued [facility] stay due to: abnormal vital signs, inadequate oral pain control , ambulation difficulties Discharge planning: uncertain Reviewed: Pt Seen/Exam by Me History felt well this am. later in the day - slide on his knees while trying to get up. no loss of consciousness Constitutional: denies: fever Respiratory: negative: short of breath Cardiovascular: denies chest pain General Appearance: no apparent distress Respiratory: no respiratory distress, decreased breath sounds Cardiovascular: regular rate, rhythm Gastrointestinal: normal bowel sounds, soft, distended, tenderness (incisional) Neurologic/Psychiatric: alert, oriented x 3 Skin Characteristics: warm/dry Assessment/Plan Resident Physician Supervision Note: I independently interviewed and examined the patient and verified the salas history and physical, reviewed labs and image studies, discussed the case with the resident Dr. Mirza and agree with the findings and care plan.
[2017-11-30 15:22] VITALS: BP 148/93; PULSE 101; TEMP 37; O2SAT 91
[2017-11-30] MEDS ORDERED: CUSTOM CENTRAL PN 1 BAG IV SCH (16:00)
[2017-11-30] MEDS: hydrOXYzine HCL 25 MG TAB PO PRN (20:42)
[2017-11-30] MEDS: ASPIRIN 81 MG ECTAB PO SCH (20:42)
[2017-11-30 23:01] VITALS: BP 133/78; PULSE 107; TEMP 37.3; O2SAT 91
[2017-11-30 23:40] VITALS: BP 114/77; PULSE 105; TEMP 37; O2SAT 90
[2017-12-01] MEDS: HYDROmorphone INJ 1 MG/ML SYR IV PRN ×2 (00:32→21:30)
--- NOTE | 2017-12-01 04:11 | Surgery Progress Note ---
Surgery Progress Note Date of Service Dec 01, 2017. Subjective Post OP Day: 6 + feeling well, + bowel movement, + flatus, + diet (clears), No complaints, No nausea, No vomiting Objective Vital Signs: Date Time Temp Pulse Resp B/P (MAP) Pulse Ox O2 Delivery O2 Flow Rate FiO2 12/01/17 00:30 Room Air 11/30/17 23:01 37.3 107 17 133/78 (96) 91 Room Air 11/30/17 16:00 Room Air 11/30/17 15:22 37.0 101 20 148/93 (111) 91 Nasal Cannula 2.0 11/30/17 14:20 37.1 107 18 138/98 (111) 91 Room Air 146/88 (107) 168/82 (110) 11/30/17 08:53 92 Room Air 11/30/17 08:35 Room Air 11/30/17 07:56 37.2 112 18 132/84 (100) 92 Room Air General Appearance: WD/WN, no apparent distress Head: normocephalic, atraumatic Neck: no adenopathy, trachea midline Respiratory/Chest: lungs clear Cardiovascular: regular rate, rhythm, + tachycardia Abdomen: normal bowel sounds, non tender, non distended, soft Incision(s): clean, dry, intact Extremities: non-tender, no pedal edema Laboratory Results: Results Past 24 Hours Test 11/30/17 05:51 11/30/17 05:55 11/30/17 12:02 11/30/17 14:03 Range/Units Sodium Level 137 136-145 mmol/L Potassium Level 3.9 3.5-5.1 mmol/L Chloride Level 103 98-107 mmol/L Carbon Dioxide Level 27 21-32 mmol/L Anion Gap 7.0 3-11 mmol/L Blood Urea Nitrogen 8 7-18 mg/dl Creatinine 0.50 0.60-1.40 mg/dl Est Creatinine Clear Calc Drug Dose 207.8 ml/min Estimated GFR () 140.4 Estimated GFR (Non- 121.1 BUN/Creatinine Ratio 16.6 10-20 Random Glucose 143 70-99 mg/dl Calcium Level 8.0 8.5-10.1 mg/dl Phosphorus Level 3.6 2.5-4.9 mg/dl Magnesium Level 1.9 1.8-2.4 mg/dl Bedside Glucose 147 186 190 70-99 mg/dl Test 11/30/17 14:22 11/30/17 17:03 11/30/17 20:30 Range/Units Hemoglobin 14.1 14.0-18.0 g/dL Hematocrit 42.9 42-52 % Sodium Level 135 136-145 mmol/L Potassium Level 4.6 3.5-5.1 mmol/L Chloride Level 99 98-107 mmol/L Carbon Dioxide Level 29 21-32 mmol/L Anion Gap 7.0 3-11 mmol/L Blood Urea Nitrogen 8 7-18 mg/dl Creatinine 0.68 0.60-1.40 mg/dl Est Creatinine Clear Calc Drug Dose 152.8 ml/min Estimated GFR () 123.7 Estimated GFR (Non- 106.8 BUN/Creatinine Ratio 12.4 10-20 Random Glucose 221 70-99 mg/dl Calcium Level 8.8 8.5-10.1 mg/dl Magnesium Level 2.1 1.8-2.4 mg/dl Bedside Glucose 209 152 70-99 mg/dl Assessment & Plan s/p ex lap w/[facility] -doing well on diet -will advance to fulls -wean TPN soon -good progress
[2017-12-01 07:05] LABS: CALCIUM 8.2 mg/dl (8.5-10.1); CREATININE 0.51 mg/dl (0.60-1.40); PHOSPHORUS 3.2 mg/dl (2.5-4.9); POTASSIUM 4.2 mmol/L (3.5-5.1)
[2017-12-01 07:09] VITALS: BP 136/81; PULSE 98; TEMP 37.1; O2SAT 91
[2017-12-01 08:00] VITALS: O2SAT 91
[2017-12-01] MEDS: TIOTROPIUM BROMIDE 5 PUFF/90 MCG INH INH SCH (08:13)
[2017-12-01] MEDS: NYSTATIN SUSP 500,000 U/5 ML UDC PO SCH ×4 (08:13→20:33)
[2017-12-01] MEDS: ENOXAPARIN 40 MG/0.4 ML SYR SQ SCH (08:13)
[2017-12-01] MEDS: INSULIN GLARGINE SOLOSTAR 100 UNITS/ML 3 ML PEN SC SCH ×2 (08:19→21:13)
[2017-12-01] MEDS: LORAZEPAM INJ 0.5 MG in SYRINGE 0.75 ML IV PRN (08:32)
[2017-12-01] MEDS: INSULIN ASPART 100 UNITS/ML 3 ML PEN SC SCH ×4 (09:32→21:13)
--- NOTE | 2017-12-01 10:32 | Family Medicine Progress Note ---
Progress Note Date of Service Dec 01, 2017. Subjective Pt evaluation today including: conversation w/ patient, conversation w/ family , physical exam, chart review, lab review, review of studies Pain: 01/29 PO Intake: WNL Voiding: no voiding problems No more falling events, slightly sedated this morning after receiving his ativan mild abd pain/ distention but notes it is improving - he has been having BM Now has commode which is appropriate in size for him which he notes does help tremendously Constitutional: No fever Eyes: No worsening of vision ENT: No hearing loss Respiratory: No cough, No sputum, No wheezing, No shortness of breath, No dyspnea on exertion Cardiovascular: No chest pain Abdomen: + pain, No nausea, No vomiting, No diarrhea, No constipation, No GI bleeding Musculoskeletal: + problem reported (back pain BL), No joint pain, No muscle pain Neurologic: + balance problems, No memory loss, No weakness Psychiatric: + anxiety, No depression symptoms Heme: No abnormal bleeding/bruising Endo: No fatigue Skin: No rash Medications Medications Administered Medications (Trade) Dose Ordered Sig/Dale Route Start Time Stop Time Status Last Admin Dose Admin Sodium Chloride 1,000 ml @ 999 mls/hr Q1H1M STAT IV 11/21/17 20:30 11/21/17 21:30 DC 11/21/17 20:30 999 MLS/HR Morphine Sulfate (MoRPHine SULFATE INJ) 6 mg NOW STAT IV 11/21/17 22:16 11/21/17 22:17 DC 11/21/17 22:23 6 MG Ondansetron HCl (Zofran Inj) 4 mg NOW STAT IV 11/21/17 22:16 11/21/17 22:17 DC 11/21/17 22:16 4 MG Morphine Sulfate (MoRPHine SULFATE INJ) 4 mg NOW STAT IV 11/21/17 23:25 11/21/17 23:26 DC 11/21/17 23:38 4 MG Sodium Chloride 500 ml @ 999 mls/hr Q31M STAT IV 11/21/17 23:36 11/22/17 00:06 DC 11/21/17 23:36 999 MLS/HR Ondansetron HCl (Zofran Inj) 4 mg Q6H PRN IV 11/22/17 00:30 11/28/17 09:36 DC 11/28/17 06:30 4 MG Tiotropium [place] (Spiriva Handihaler Inhaler) 1 puff DAILY INH 11/22/17 09:00 12/22/17 08:59 12/01/17 08:13 1 PUFF Morphine Sulfate (MoRPHine SULFATE INJ) 4 mg Q4H PRN IV 11/22/17 00:30 11/25/17 10:41 DC 11/25/17 05:16 4 MG Insulin Aspart (novoLOG ASPART) SLIDING SCALE If C... Q6 SC 11/22/17 02:30 11/23/17 15:08 DC 11/23/17 12:21 7 UNITS Nystatin (Mycostatin Susp) 10 ml QID PO 11/22/17 09:00 12/02/17 08:59 12/01/17 08:13 10 ML Sodium Chloride 1,000 ml @ 125 mls/hr Q8H IV 11/22/17 00:45 11/25/17 10:43 DC 11/25/17 00:38 125 MLS/HR Lorazepam 0.5 mg/ Syringe 1 ml @ 1 mls/min Q8H PRN IV 11/22/17 02:30 12/22/17 02:29 12/01/17 08:32 1 MLS/MIN Insulin Glargine (Lantus Solostar Pen) 15 units DAILY SC 11/23/17 09:00 11/23/17 16:31 DC 11/23/17 08:36 15 UNITS Insulin Aspart (novoLOG ASPART) SLIDING SCALE If C... ACHS SC 11/23/17 17:15 11/24/17 06:08 DC 11/23/17 21:12 3 UNITS Potassium Chloride (Klor-Con Tab) 40 meq NOW ONCE PO 11/23/17 16:00 11/23/17 16:01 DC 11/23/17 16:19 40 MEQ Aspirin (Ecotrin Tab) 81 mg HS PO 11/23/17 21:00 12/23/17 20:59 11/30/17 20:42 81 MG Simethicone (Mylicon Chew Tab) 80 mg Q6H PRN PO 11/24/17 01:45 11/25/17 10:41 DC 11/24/17 03:54 80 MG Insulin Aspart (novoLOG ASPART) SLIDING SCALE If C... Q6 SC 11/24/17 06:00 11/30/17 09:09 DC 11/30/17 00:08 1 UNITS Insulin Glargine (Lantus Solostar Pen) 15 units BID SC 11/24/17 09:00 11/30/17 18:01 DC 11/30/17 08:47 15 UNITS Potassium Phosphate 15 mmol/ Sodium Chloride 255 ml @ 88 mls/hr 1030 ONCE IV 11/24/17 10:30 11/24/17 13:23 DC 11/24/17 13:13 88 MLS/HR Potassium Chloride/Dextrose/ Sod Cl 1,000 ml @ 125 mls/hr Q8H IV 11/25/17 12:00 11/25/17 18:23 DC 11/25/17 15:10 125 MLS/HR Cefoxitin Sodium 1000 mg/Dextrose 60 ml @ 100 mls/hr Q8H IV 11/25/17 16:00 11/26/17 08:35 DC 11/26/17 08:22 100 MLS/HR Enoxaparin Sodium (Lovenox Inj) 40 mg QAM SQ 11/26/17 09:00 12/26/17 08:59 12/01/17 08:13 40 MG Promethazine HCl 25 mg/Sodium Chloride 51 ml @ 204 mls/hr Q6H PRN IV 11/25/17 10:45 12/25/17 10:44 11/26/17 16:33 204 MLS/HR Ondansetron HCl (Zofran Inj) 4 mg Q6H PRN IV 11/25/17 10:45 12/25/17 10:44 11/30/17 04:01 4 MG Hydromorphone HCl (Dilaudid Inj) 0.25 mg Q5M PRN IV 11/25/17 10:45 11/25/17 16:00 DC 11/25/17 11:40 0.25 MG Hydromorphone HCl (Dilaudid Tube Coverer) 25 mg PRN PRN IV 11/25/17 10:45 11/27/17 14:48 DC 11/27/17 14:14 25 MG Hydromorphone HCl (Dilaudid Inj) 1 mg Q3H PRN IV 11/25/17 11:00 12/09/17 10:59 Future hold 12/01/17 00:32 1 MG Hydromorphone HCl (Dilaudid Inj) 0.25 mg UD PRN IV 11/25/17 11:45 11/25/17 17:00 DC 11/25/17 11:33 0.25 MG Potassium Chloride/Sodium Chloride 1,000 ml @ 125 mls/hr Q8H IV 11/25/17 19:00 11/27/17 15:59 DC 11/27/17 11:06 125 MLS/HR Famotidine 20 mg/ Syringe 5 ml @ 2.5 mls/min Q12H IV 11/26/17 18:00 11/27/17 13:27 DC 11/27/17 05:48 2.5 MLS/MIN Methylnaltrexone [place] (Relistor Inj) 12 mg Q2D@0900 SQ 11/27/17 10:00 11/29/17 10:32 DC 11/29/17 08:56 12 MG Heparin Sodium (Porcine) (Heparin 10 Unit/ ml 5 ml Flush) 5 ml PRN PRN FLUSH 11/27/17 10:30 12/27/17 10:29 11/30/17 05:52 5 ML Nutrition (Parenteral) 0 ml @ 0 mls/hr TODAY@1600 IV 11/27/17 16:00 11/28/17 15:59 DC 11/27/17 16:09 0 MLS/HR Miscellaneous (Stop Order) 1 ea ONE ONCE N/A 11/27/17 15:59 11/27/17 16:00 DC 11/27/17 16:09 1 EA Sodium Phosphate 15 mmol/Sodium Chloride 255 ml @ 88 mls/hr ONE ONCE IV 11/28/17 09:30 11/28/17 12:23 DC 11/28/17 09:22 88 MLS/HR Nutrition (Parenteral) 0 ml @ 0 mls/hr TODAY@1600 IV 11/28/17 16:00 11/29/17 15:59 DC 11/28/17 16:07 0 MLS/HR Potassium Chloride 20 meq/ Prmx 100 ml @ 50 mls/hr TODAY@1030 ONCE IV 11/28/17 10:30 11/28/17 12:29 DC 11/28/17 12:35 50 MLS/HR Nutrition (Parenteral) 0 ml @ 0 mls/hr TODAY@1600 IV 11/29/17 16:00 11/30/17 15:59 DC 11/29/17 16:17 0 MLS/HR Menthol (Nice Destiny) 24 destiny STK-MED ONCE DESTINY 11/30/17 00:03 11/30/17 00:04 DC 11/30/17 00:11 24 DESTINY Nutrition (Parenteral) 0 ml @ 0 mls/hr TODAY@1600 IV 11/30/17 16:00 12/01/17 15:59 11/30/17 16:29 100 MLS/HR Insulin Aspart (novoLOG ASPART) SLIDING SCALE If C... ACHS SC 11/30/17 12:00 12/30/17 11:59 12/01/17 09:32 3 UNITS Hydroxyzine HCl (Vistaril Tab) 25 mg HS PRN PO 11/30/17 14:15 12/30/17 14:14 11/30/17 20:42 25 MG Insulin Glargine (Lantus Solostar Pen) 18 units BID SC 11/30/17 21:00 12/25/17 08:59 12/01/17 08:19 18 UNITS Objective Vital Signs Date Time Temp Pulse Resp B/P (MAP) Pulse Ox O2 Delivery O2 Flow Rate FiO2 12/01/17 08:00 91 Room Air 12/01/17 07:09 37.1 98 16 136/81 (99) 91 Room Air 12/01/17 00:30 Room Air 11/30/17 23:01 37.3 107 17 133/78 (96) 91 Room Air 11/30/17 16:00 Room Air 11/30/17 15:22 37.0 101 20 148/93 (111) 91 Nasal Cannula 2.0 11/30/17 14:20 37.1 107 18 138/98 (111) 91 Room Air 146/88 (107) 168/82 (110) Physical Exam General Appearance: no apparent distress Eyes: normal inspection ENT: normal ENT inspection Neck: supple Respiratory/Chest: no respiratory distress, no accessory muscle use, + decreased breath sounds (bilat bases) Cardiovascular: regular rate, rhythm, no murmur Abdomen: normal bowel sounds, non tender, soft, + distended (mild), + pertinent finding (wound dressing is clean) Extremities: normal inspection, no pedal edema, no calf tenderness Neurologic/Psychiatric: alert, oriented x 3, + pertinent finding (anxiety) Skin: normal color, warm/dry, no rash Lymphatic: no adenopathy Laboratory Results Results Past 24 Hours Test 11/30/17 12:02 11/30/17 14:03 11/30/17 14:22 11/30/17 17:03 Range/Units Bedside Glucose 186 190 209 70-99 mg/dl Hemoglobin 14.1 14.0-18.0 g/dL Hematocrit 42.9 42-52 % Sodium Level 135 136-145 mmol/L Potassium Level 4.6 3.5-5.1 mmol/L Chloride Level 99 98-107 mmol/L Carbon Dioxide Level 29 21-32 mmol/L Anion Gap 7.0 3-11 mmol/L Blood Urea Nitrogen 8 7-18 mg/dl Creatinine 0.68 0.60-1.40 mg/dl Est Creatinine Clear Calc Drug Dose 152.8 ml/min Estimated GFR () 123.7 Estimated GFR (Non- 106.8 BUN/Creatinine Ratio 12.4 10-20 Random Glucose 221 70-99 mg/dl Calcium Level 8.8 8.5-10.1 mg/dl Magnesium Level 2.1 1.8-2.4 mg/dl Test 11/30/17 20:30 12/01/17 05:31 12/01/17 08:01 Range/Units Bedside Glucose 152 217 70-99 mg/dl Sodium Level 133 136-145 mmol/L Potassium Level 4.2 3.5-5.1 mmol/L Chloride Level 99 98-107 mmol/L Carbon Dioxide Level 29 21-32 mmol/L Anion Gap 5.0 3-11 mmol/L Blood Urea Nitrogen 10 7-18 mg/dl Creatinine 0.51 0.60-1.40 mg/dl Est Creatinine Clear Calc Drug Dose 205.1 ml/min Estimated GFR () 139.3 Estimated GFR (Non- 120.2 BUN/Creatinine Ratio 19.0 10-20 Random Glucose 232 70-99 mg/dl Calcium Level 8.2 8.5-10.1 mg/dl Phosphorus Level 3.2 2.5-4.9 mg/dl Magnesium Level 2.2 1.8-2.4 mg/dl Assessment and Plan 56 year old male with COPD, DMII, anxiety and chronic back pain admitted for small bowel obstruction and s/p lysis of adhesions. Patient is currently transitioning from TPN to PO slowly. Partial SBO POD 6 lysis of adhesions - NG tube d/c 11/29/2017 and tolerated clear fluid and will ADAT - TPN continued in the interm until patient tolerates a full diet; monitor electrolytes and replete accordingly - IV zofran/ phenergen for nausea - Dilaudid prn for pain, if tolerates full liquid will transition to his PO pain medication - Relistor 12 mg q2 days - Considering the unique nature of the adhesions it is recommended by GI that the patient have a follow up colonoscopy with Dr mariee in outpatient setting - Appreciate rec from GI/ surgery - encourage incentive remy and ambulation VERNA - Patient states he does take alprazolam prn at home with nortriptyline - Unable to sleep because of his anxiety, Vistaril HS for insomnia - Nortriptyline to be restarted - sedated this am with current benzo dose so will decrease HTN - aspirin and lisinopril 2.5 mg held as patient NPO - blood pressure well controlled - IV hydralazine 10mg q6h for SBP >160 COPD controlled - Continue Spiriva DMII - Metformin 1000 mg bid and glimepiride 8 mg daily held - ISS with check ac/hs - Lantus BID, adjust as patient increases diet - patient is not currently on a statin and may benefit Chronic back pain; chronic narcotic use - Patient on chronic Percocet and Naprosyn for back pain at home - Flexeril 10 mg tid held - IV dilaudid as above; once able to tolerate PO will change to his home regimen - PDMP reviewed and patient does have regular monthly rx for these medications without suspicious behavior DVT prophylaxis - SCD and Lovenox 40 meq FULL CODE Continued [facility] stay due to: inadequate oral pain control, other Discharge planning: uncertain Reviewed: Pt Seen/Exam by Me History sedated this morning. had lorazepam earlier today abdominal pain controlled Constitutional: denies: fever Respiratory: negative: short of breath Cardiovascular: denies chest pain General Appearance: no apparent distress Respiratory: no respiratory distress, decreased breath sounds (base) Cardiovascular: regular rate, rhythm Gastrointestinal: normal bowel sounds, soft, tenderness (incisional) Neurologic/Psychiatric: other (sedated) Skin Characteristics: warm/dry Assessment/Plan Resident Physician Supervision Note: I independently interviewed and examined the patient and verified the salas history and physical, reviewed labs and image studies, discussed the case with the resident Dr. Mirza and agree with the findings and care plan.
[2017-12-01 12:13] VITALS: O2SAT 91
[2017-12-01] MEDS: LORAZEPAM 0.5 MG TAB PO PRN (12:41)
[2017-12-01 14:52] VITALS: BP 163/96; PULSE 104; TEMP 36.8; O2SAT 93
[2017-12-01 16:00] VITALS: O2SAT 97
[2017-12-01] MEDS ORDERED: CUSTOM CENTRAL PN 1 BAG IV SCH (16:00)
[2017-12-01] MEDS: ASPIRIN 81 MG ECTAB PO SCH (20:33)
[2017-12-01] MEDS: NORTRIPTYLINE HCL 25 MG CAP PO SCH (20:33)
[2017-12-02] MEDS: ONDANSETRON INJ 2 MG/ML 2 ML VIAL IV PRN ×3 (01:29→19:22)
[2017-12-02] MEDS: PROMETHAZINE HCL INJ 25 MG in SODIUM CHLORIDE 0.9% 50ML 50 ML IV PRN (02:52)
[2017-12-02 06:22] LABS: HEMATOCRIT 40.5 % (42-52); HEMOGLOBIN 13.1 g/dL (14.0-18.0); MEAN CELL VOLUME 93.8 fL (80-100); MEAN CORPUSCULAR HEMOGLOBIN 30.3 pg (25-34); MEAN CORPUSCULAR HGB CONC 32.3 g/dl (32-36); MEAN PLATELET VOLUME 9.5 fL (7.4-10.4); PLATELET COUNT 270 K/uL (130-400); RED CELL DISTRIBUTION WIDTH CV 14.1 % (11.5-14.5); RED CELL DISTRIBUTION WIDTH SD 48.2 fL (36.4-46.3); WHITE BLOOD COUNT 14.68 K/uL (4.8-10.8)
[2017-12-02 06:27] LABS: CALCIUM 8.6 mg/dl (8.5-10.1); CREATININE 0.59 mg/dl (0.60-1.40); POTASSIUM 4.4 mmol/L (3.5-5.1)
[2017-12-02 06:28] LABS: PHOSPHORUS 4.4 mg/dl (2.5-4.9)
[2017-12-02 08:07] VITALS: BP 145/90; PULSE 100; TEMP 36.8; O2SAT 90
[2017-12-02] MEDS: INSULIN GLARGINE SOLOSTAR 100 UNITS/ML 3 ML PEN SC SCH ×2 (09:00→21:13)
[2017-12-02] MEDS: TIOTROPIUM BROMIDE 5 PUFF/90 MCG INH INH SCH (09:13)
[2017-12-02] MEDS: ENOXAPARIN 40 MG/0.4 ML SYR SQ SCH (09:13)
[2017-12-02] MEDS ORDERED: TPN/PPN CONSULT PHARMACY PRN (09:15)
[2017-12-02] MEDS ORDERED: INSULIN GLARGINE SOLOSTAR 100 UNITS/ML 3 ML PEN SC STA (09:17)
--- NOTE | 2017-12-02 09:17 | Surgery Progress Note ---
Surgery Progress Note Date of Service Dec 02, 2017. Subjective Post OP Day: 7 + feeling well, + bowel movement, + flatus, + diet (fulls), No complaints, No nausea, No vomiting Objective Vital Signs: Date Time Temp Pulse Resp B/P (MAP) Pulse Ox O2 Delivery O2 Flow Rate FiO2 12/02/17 08:07 36.8 100 20 145/90 (108) 90 Room Air 12/02/17 08:02 Room Air 12/01/17 23:50 Room Air 12/01/17 16:00 97 Room Air 12/01/17 14:52 36.8 104 18 163/96 (118) 93 Nasal Cannula 2.0 12/01/17 12:13 91 Nasal Cannula 2.0 General Appearance: WD/WN, no apparent distress Head: normocephalic, atraumatic Neck: supple Respiratory/Chest: chest non-tender, lungs clear, + wheezing (occasioanl) Cardiovascular: regular rate, rhythm, no gallop, no murmur Abdomen: normal bowel sounds, non tender, soft, + distended Incision(s): clean, dry, intact Extremities: non-tender, no pedal edema Laboratory Results: Results Past 24 Hours Test 12/01/17 12:21 12/01/17 16:59 12/01/17 20:39 12/02/17 05:27 Range/Units Bedside Glucose 201 175 202 70-99 mg/dl White Blood Count 14.68 4.8-10.8 K/uL Red Blood Count 4.32 4.7-6.1 M/uL Hemoglobin 13.1 14.0-18.0 g/dL Hematocrit 40.5 42-52 % Mean Corpuscular Volume 93.8 80-100 fL Mean Corpuscular Hemoglobin 30.3 25-34 pg Mean Corpuscular Hemoglobin Concent 32.3 32-36 g/dl RDW Standard Deviation 48.2 36.4-46.3 fL RDW Coefficient of Variation 14.1 11.5-14.5 % Platelet Count 270 130-400 K/uL Mean Platelet Volume 9.5 7.4-10.4 fL Sodium Level 134 136-145 mmol/L Potassium Level 4.4 3.5-5.1 mmol/L Chloride Level 98 98-107 mmol/L Carbon Dioxide Level 32 21-32 mmol/L Anion Gap 4.0 3-11 mmol/L Blood Urea Nitrogen 9 7-18 mg/dl Creatinine 0.59 0.60-1.40 mg/dl Est Creatinine Clear Calc Drug Dose 176.1 ml/min Estimated GFR () 131.2 Estimated GFR (Non- 113.2 BUN/Creatinine Ratio 15.9 10-20 Random Glucose 213 70-99 mg/dl Calcium Level 8.6 8.5-10.1 mg/dl Phosphorus Level 4.4 2.5-4.9 mg/dl Magnesium Level 2.2 1.8-2.4 mg/dl Test 12/02/17 08:14 Range/Units Bedside Glucose 237 70-99 mg/dl Assessment & Plan s/p ex lap w/[facility] -doing well on diet -will advance to regular -wean TPN to off today -good progress -possibly discharge in AM
[2017-12-02] MEDS: INSULIN ASPART 100 UNITS/ML 3 ML PEN SC SCH ×4 (09:48→21:06)
--- NOTE | 2017-12-02 10:09 | Family Medicine Progress Note ---
Progress Note Date of Service Dec 02, 2017. Subjective Pt evaluation today including: conversation w/ patient, physical exam, chart review, lab review, review of studies, review of inpatient medication list Pain: 12/29 PO Intake: appetite not back to bl but has been tolerating what he does eat Voiding: no voiding problems was in the room during interview states he slept better last night states he has been at least ambulating with Constitutional: No fever Eyes: No worsening of vision ENT: No hearing loss Respiratory: No cough, No sputum, No wheezing, No shortness of breath, No dyspnea on exertion Cardiovascular: No chest pain Abdomen: No pain, No nausea, No vomiting, No diarrhea, No constipation Musculoskeletal: No joint pain, No muscle pain Male : No dysuria Neurologic: + balance problems, No weakness Psychiatric: + anxiety, No depression symptoms Heme: No abnormal bleeding/bruising Endo: No fatigue Skin: No rash Medications Medications Administered Medications (Trade) Dose Ordered Sig/Dale Route Start Time Stop Time Status Last Admin Dose Admin Sodium Chloride 1,000 ml @ 999 mls/hr Q1H1M STAT IV 11/21/17 20:30 11/21/17 21:30 DC 11/21/17 20:30 999 MLS/HR Morphine Sulfate (MoRPHine SULFATE INJ) 6 mg NOW STAT IV 11/21/17 22:16 11/21/17 22:17 DC 11/21/17 22:23 6 MG Ondansetron HCl (Zofran Inj) 4 mg NOW STAT IV 11/21/17 22:16 11/21/17 22:17 DC 11/21/17 22:16 4 MG Morphine Sulfate (MoRPHine SULFATE INJ) 4 mg NOW STAT IV 11/21/17 23:25 11/21/17 23:26 DC 11/21/17 23:38 4 MG Sodium Chloride 500 ml @ 999 mls/hr Q31M STAT IV 11/21/17 23:36 11/22/17 00:06 DC 11/21/17 23:36 999 MLS/HR Ondansetron HCl (Zofran Inj) 4 mg Q6H PRN IV 11/22/17 00:30 11/28/17 09:36 DC 11/28/17 06:30 4 MG Tiotropium Noti (Spiriva Handihaler Inhaler) 1 puff DAILY INH 11/22/17 09:00 12/22/17 08:59 12/02/17 09:13 1 PUFF Morphine Sulfate (MoRPHine SULFATE INJ) 4 mg Q4H PRN IV 11/22/17 00:30 11/25/17 10:41 DC 11/25/17 05:16 4 MG Insulin Aspart (novoLOG ASPART) SLIDING SCALE If C... Q6 SC 11/22/17 02:30 11/23/17 15:08 DC 11/23/17 12:21 7 UNITS Nystatin (Mycostatin Susp) 10 ml QID PO 11/22/17 09:00 12/02/17 08:59 DC 12/01/17 20:33 10 ML Sodium Chloride 1,000 ml @ 125 mls/hr Q8H IV 11/22/17 00:45 11/25/17 10:43 DC 11/25/17 00:38 125 MLS/HR Lorazepam 0.5 mg/ Syringe 1 ml @ 1 mls/min Q8H PRN IV 11/22/17 02:30 12/01/17 10:35 DC 12/01/17 08:32 1 MLS/MIN Insulin Glargine (Lantus Solostar Pen) 15 units DAILY SC 11/23/17 09:00 11/23/17 16:31 DC 11/23/17 08:36 15 UNITS Insulin Aspart (novoLOG ASPART) SLIDING SCALE If C... ACHS SC 11/23/17 17:15 11/24/17 06:08 DC 11/23/17 21:12 3 UNITS Potassium Chloride (Klor-Con Tab) 40 meq NOW ONCE PO 11/23/17 16:00 11/23/17 16:01 DC 11/23/17 16:19 40 MEQ Aspirin (Ecotrin Tab) 81 mg HS PO 11/23/17 21:00 12/23/17 20:59 12/01/17 20:33 81 MG Simethicone (Mylicon Chew Tab) 80 mg Q6H PRN PO 11/24/17 01:45 11/25/17 10:41 DC 11/24/17 03:54 80 MG Insulin Aspart (novoLOG ASPART) SLIDING SCALE If C... Q6 SC 11/24/17 06:00 11/30/17 09:09 DC 11/30/17 00:08 1 UNITS Insulin Glargine (Lantus Solostar Pen) 15 units BID SC 11/24/17 09:00 11/30/17 18:01 DC 11/30/17 08:47 15 UNITS Potassium Phosphate 15 mmol/ Sodium Chloride 255 ml @ 88 mls/hr 1030 ONCE IV 11/24/17 10:30 11/24/17 13:23 DC 11/24/17 13:13 88 MLS/HR Potassium Chloride/Dextrose/ Sod Cl 1,000 ml @ 125 mls/hr Q8H IV 11/25/17 12:00 11/25/17 18:23 DC 11/25/17 15:10 125 MLS/HR Cefoxitin Sodium 1000 mg/Dextrose 60 ml @ 100 mls/hr Q8H IV 11/25/17 16:00 11/26/17 08:35 DC 11/26/17 08:22 100 MLS/HR Enoxaparin Sodium (Lovenox Inj) 40 mg QAM SQ 11/26/17 09:00 12/26/17 08:59 12/02/17 09:13 40 MG Promethazine HCl 25 mg/Sodium Chloride 51 ml @ 204 mls/hr Q6H PRN IV 11/25/17 10:45 12/25/17 10:44 12/02/17 02:52 204 MLS/HR Ondansetron HCl (Zofran Inj) 4 mg Q6H PRN IV 11/25/17 10:45 12/25/17 10:44 12/02/17 01:29 4 MG Hydromorphone HCl (Dilaudid Inj) 0.25 mg Q5M PRN IV 11/25/17 10:45 11/25/17 16:00 DC 11/25/17 11:40 0.25 MG Hydromorphone HCl (Dilaudid [employer]) 25 mg PRN PRN IV 11/25/17 10:45 11/27/17 14:48 DC 11/27/17 14:14 25 MG Hydromorphone HCl (Dilaudid Inj) 1 mg Q3H PRN IV 11/25/17 11:00 12/09/17 10:59 Future hold 12/01/17 21:30 1 MG Hydromorphone HCl (Dilaudid Inj) 0.25 mg UD PRN IV 11/25/17 11:45 11/25/17 17:00 DC 11/25/17 11:33 0.25 MG Potassium Chloride/Sodium Chloride 1,000 ml @ 125 mls/hr Q8H IV 11/25/17 19:00 11/27/17 15:59 DC 11/27/17 11:06 125 MLS/HR Famotidine 20 mg/ Syringe 5 ml @ 2.5 mls/min Q12H IV 11/26/17 18:00 11/27/17 13:27 DC 11/27/17 05:48 2.5 MLS/MIN Methylnaltrexone Noti (Relistor Inj) 12 mg Q2D@0900 SQ 11/27/17 10:00 11/29/17 10:32 DC 11/29/17 08:56 12 MG Heparin Sodium (Porcine) (Heparin 10 Unit/ ml 5 ml Flush) 5 ml PRN PRN FLUSH 11/27/17 10:30 12/27/17 10:29 12/02/17 05:27 5 ML Nutrition (Parenteral) 0 ml @ 0 mls/hr TODAY@1600 IV 11/27/17 16:00 11/28/17 15:59 DC 11/27/17 16:09 0 MLS/HR Miscellaneous (Stop Order) 1 ea ONE ONCE N/A 11/27/17 15:59 11/27/17 16:00 DC 11/27/17 16:09 1 EA Sodium Phosphate 15 mmol/Sodium Chloride 255 ml @ 88 mls/hr ONE ONCE IV 11/28/17 09:30 11/28/17 12:23 DC 11/28/17 09:22 88 MLS/HR Nutrition (Parenteral) 0 ml @ 0 mls/hr TODAY@1600 IV 11/28/17 16:00 11/29/17 15:59 DC 11/28/17 16:07 0 MLS/HR Potassium Chloride 20 meq/ Prmx 100 ml @ 50 mls/hr TODAY@1030 ONCE IV 11/28/17 10:30 11/28/17 12:29 DC 11/28/17 12:35 50 MLS/HR Nutrition (Parenteral) 0 ml @ 0 mls/hr TODAY@1600 IV 11/29/17 16:00 11/30/17 15:59 DC 11/29/17 16:17 0 MLS/HR Menthol (Nice Destiny) 24 destiny STK-MED ONCE DESTINY 11/30/17 00:03 11/30/17 00:04 DC 11/30/17 00:11 24 DESTINY Nutrition (Parenteral) 0 ml @ 0 mls/hr TODAY@1600 IV 11/30/17 16:00 12/01/17 15:59 DC 11/30/17 16:29 100 MLS/HR Insulin Aspart (novoLOG ASPART) SLIDING SCALE If C... ACHS SC 11/30/17 12:00 12/30/17 11:59 12/02/17 09:48 8 UNITS Hydroxyzine HCl (Vistaril Tab) 25 mg HS PRN PO 11/30/17 14:15 12/30/17 14:14 11/30/17 20:42 25 MG Insulin Glargine (Lantus Solostar Pen) 18 units BID SC 11/30/17 21:00 12/01/17 17:28 DC 12/01/17 08:19 18 UNITS Nutrition (Parenteral) 0 ml @ 0 mls/hr TODAY@1600 IV 12/01/17 16:00 12/02/17 15:59 12/01/17 15:57 83.3 MLS/HR Nortriptyline HCl (Pamelor Cap) 25 mg HS PO 12/01/17 21:00 12/31/17 20:59 12/01/17 20:33 25 MG Lorazepam (Ativan Tab) 0.25 mg Q8H PRN PO 12/01/17 10:45 12/31/17 10:44 12/01/17 12:41 0.25 MG Insulin Glargine (Lantus Solostar Pen) 20 units BID SC 12/01/17 21:00 12/02/17 09:16 DC 12/02/17 09:00 20 UNITS Insulin Glargine (Lantus Solostar Pen) 5 units NOW STAT SC 12/02/17 09:17 12/02/17 09:18 DC 12/02/17 09:50 5 UNITS Objective Vital Signs Date Time Temp Pulse Resp B/P (MAP) Pulse Ox O2 Delivery O2 Flow Rate FiO2 2/11/18 08:07 36.8 100 20 145/90 (108) 90 Room Air 12/02/17 08:02 Room Air 12/01/17 23:50 Room Air 12/01/17 16:00 97 Room Air 12/01/17 14:52 36.8 104 18 163/96 (118) 93 Nasal Cannula 2.0 12/01/17 12:13 91 Nasal Cannula 2.0 Physical Exam General Appearance: no apparent distress Eyes: normal inspection ENT: normal ENT inspection Neck: supple Respiratory/Chest: no respiratory distress, no accessory muscle use, + decreased breath sounds (bilat bases) Cardiovascular: regular rate, rhythm, no murmur Abdomen: normal bowel sounds, non tender, soft Extremities: non-tender, normal inspection, no pedal edema, no calf tenderness Neurologic/Psychiatric: alert, normal mood/affect, oriented x 3 Skin: normal color, warm/dry, no rash Lymphatic: no adenopathy Laboratory Results Results Past 24 Hours Test 12/01/17 12:21 12/01/17 16:59 12/01/17 20:39 12/02/17 05:27 Range/Units Bedside Glucose 201 175 202 70-99 mg/dl White Blood Count 14.68 4.8-10.8 K/uL Red Blood Count 4.32 4.7-6.1 M/uL Hemoglobin 13.1 14.0-18.0 g/dL Hematocrit 40.5 42-52 % Mean Corpuscular Volume 93.8 80-100 fL Mean Corpuscular Hemoglobin 30.3 25-34 pg Mean Corpuscular Hemoglobin Concent 32.3 32-36 g/dl RDW Standard Deviation 48.2 36.4-46.3 fL RDW Coefficient of Variation 14.1 11.5-14.5 % Platelet Count 270 130-400 K/uL Mean Platelet Volume 9.5 7.4-10.4 fL Sodium Level 134 136-145 mmol/L Potassium Level 4.4 3.5-5.1 mmol/L Chloride Level 98 98-107 mmol/L Carbon Dioxide Level 32 21-32 mmol/L Anion Gap 4.0 3-11 mmol/L Blood Urea Nitrogen 9 7-18 mg/dl Creatinine 0.59 0.60-1.40 mg/dl Est Creatinine Clear Calc Drug Dose 176.1 ml/min Estimated GFR () 131.2 Estimated GFR (Non- 113.2 BUN/Creatinine Ratio 15.9 10-20 Random Glucose 213 70-99 mg/dl Calcium Level 8.6 8.5-10.1 mg/dl Phosphorus Level 4.4 2.5-4.9 mg/dl Magnesium Level 2.2 1.8-2.4 mg/dl Test 12/02/17 08:14 Range/Units Bedside Glucose 237 70-99 mg/dl Assessment and Plan 56 year old male with COPD, DMII, anxiety and chronic back pain admitted for small bowel obstruction and s/p lysis of adhesions. Patient is currently transitioning from TPN to PO slowly. Partial SBO POD 7 lysis of adhesions - NG tube d/c 11/29/2017 and ADAT - TPN to be weaned today per surgery - IV zofran/ phenergen for nausea - Oxycodone for pain control, will wean dilaudid - Relistor 12 mg q2 days - Considering the unique nature of the adhesions it is recommended by GI that the patient have a follow up colonoscopy with Dr mariee in outpatient setting - Appreciate rec from GI/ surgery - encourage incentive remy and ambulation - goal is for two hallway walks today VERNA - Patient states he does take alprazolam prn at home with nortriptyline - Unable to sleep because of his anxiety, Vistaril HS for insomnia - Nortriptyline PO cont'd HTN - aspirin and lisinopril 2.5 mg held as patient NPO - blood pressure well controlled - IV hydralazine 10mg q6h for SBP >160 COPD controlled - Continue Spiriva DMII - Metformin 1000 mg bid and glimepiride 8 mg daily held - ISS with check ac/hs - Lantus BID, adjust as patient increases diet - patient is not currently on a statin and may benefit Chronic back pain; chronic narcotic use - back pain> abdominal discomfort - will trial Voltaren qid - Patient on chronic Percocet and Naprosyn for back pain at home - Flexeril 10 mg tid held - IV dilaudid as above; once able to tolerate PO will change to his home regimen - PDMP reviewed and patient does have regular monthly rx for these medications without suspicious behavior DVT prophylaxis - SCD and Lovenox [address] [facility] stay due to: other Discharge planning: home Reviewed: Pt Seen/Exam by Me History feeling much more awake this am. abdominal pain better controlled Constitutional: denies: fever Respiratory: negative: short of breath Cardiovascular: denies chest pain General Appearance: no apparent distress Respiratory: lungs clear, no respiratory distress Cardiovascular: regular rate, rhythm Gastrointestinal: normal bowel sounds, soft, tenderness (incisional) Neurologic/Psychiatric: alert, oriented x 3 Skin Characteristics: warm/dry Assessment/Plan Resident Physician Supervision Note: I independently interviewed and examined the patient and verified the salas history and physical, reviewed labs and image studies, discussed the case with the resident Dr. Mirza and agree with the findings and care plan.
[2017-12-02] MEDS ORDERED: OXYCODONE/ACETAMINOPHEN 5-325 TAB PO PRN (12:00)
[2017-12-02] MEDS: DICLOFENAC SOD 1% GEL 100 GM TUBE EXT SCH ×3 (13:00→21:00)
[2017-12-02] MEDS: SODIUM CHLORIDE 0.65% NA SOLN 45 ML (OCEAN) SCH ×3 (13:34→21:00)
[2017-12-02 15:19] VITALS: BP 136/79; PULSE 96; TEMP 36.6; O2SAT 93
[2017-12-02 16:15] VITALS: O2SAT 93
[2017-12-02] MEDS: NORTRIPTYLINE HCL 25 MG CAP PO SCH (21:00)
[2017-12-02] MEDS: ASPIRIN 81 MG ECTAB PO SCH (21:00)
[2017-12-02] MEDS: LORAZEPAM 0.5 MG TAB PO PRN (22:24)
[2017-12-02 23:20] VITALS: BP 152/92; PULSE 91; TEMP 36.7; O2SAT 94
[2017-12-02] MEDS: hydrOXYzine HCL 25 MG TAB PO PRN (23:45)
[2017-12-03 06:12] LABS: HEMATOCRIT 38.7 % (42-52); HEMOGLOBIN 12.8 g/dL (14.0-18.0); MEAN CELL VOLUME 92.4 fL (80-100); MEAN CORPUSCULAR HEMOGLOBIN 30.5 pg (25-34); MEAN CORPUSCULAR HGB CONC 33.1 g/dl (32-36); MEAN PLATELET VOLUME 9.4 fL (7.4-10.4); PLATELET COUNT 298 K/uL (130-400); RED CELL DISTRIBUTION WIDTH SD 47.2 fL (36.4-46.3); WHITE BLOOD COUNT 11.53 K/uL (4.8-10.8)
[2017-12-03] MEDS ORDERED: OXYC-57 PO (06:17)
--- NOTE | 2017-12-03 06:23 | Discharge Instructions ---
Discharge Instructions Date of Service Dec 03, 2017. Admission Reason for Admission: SBO Discharge Discharge Diagnosis / Problem: bowel obstruction/ adhesions Discharge Goals Goal(s): Decrease discomfort, Improve function, Improve disease control Activity Recommendations Activity Limitations: as noted below Lifting Limitations: no more than 10 pounds Exercise/Sports Limitations: until after follow-up appointment May Resume Sexual Activity: when tolerated Shower/Bathe: no limitations (may shower- do not soak in tub) Driving or Machine Use: one week . Instructions / Follow-Up Instructions / Follow-Up SPECIAL CARE INSTRUCTIONS: * Cover incisions and change daily for comfort/drainage. * May have loose bowel movements for 1-2 weeks * Avoid constipation- may use Senokot S twice daily as needed and/or Miralax 1-2 times per day as directed on the package * May use ibuprofen for pain as tolerated. * Expect some swelling and bruising. Call your doctor if: * Temperature above 101 degrees * Pain not relieved by pain medicine ordered * There is increased drainage or redness from any incision * You have any unanswered questions or concerns [phone]. FOLLOW UP VISIT: If not already scheduled, please call the office for a follow-up visit. for next Sun/ Sun- himanshu and wound check OFFICE PHONE NUMBER: Dr. Milligan Office Current Hospital Diet Patient's current hospital diet: Diabetes Type 2 Diet, Regular Diet Discharge Diet Recommended Diet: Regular Diet Procedures Procedures Performed: Exploratory Laparotomy, Lysis of Adhesions, Repair of Umbilical Hernia Pending Studies Studies pending at discharge: no Laboratory Results Lipid Panel Test 11/28/17 05:23 Range/Units Triglycerides Level 125 0-150 mg/dl Medical Emergencies . Who to Call and When: Medical Emergencies: If at any time you feel your situation is an emergency, please call 911 immediately. . Non-Emergent Contact Non-Emergency issues call your: Primary Care Provider, Surgeon . "Provider Documentation" section prepared by Francisco Milligan. . VTE Core Measure Inpt VTE Proph given/why not?: Enoxaparin (Lovenox)SQ, SCD's
--- NOTE | 2017-12-03 06:39 | DISCHARGE SUMMARY ---
PRINCIPAL DIAGNOSIS: Small-bowel obstruction. PROCEDURES: The patient underwent laparotomy with lysis of adhesions for small bowel obstruction. The patient also had a prolonged ileus postoperatively requiring central TPN. HISTORY OF PRESENT ILLNESS: The patient is a 56-year-old male presenting to the Emergency Room with nausea and vomiting, abdominal distention and evidence on CAT scan of small-bowel obstruction with no history of prior operations. Apparently he seemed to do well over 1-2 days with removal of his NG tube, but then he experienced further bloating and nausea requiring the NG tube to be placed back in with high outputs. He finally underwent a CAT scan with contrast via the NG tube showing worsening small bowel dilatation and evidence of continued small-bowel obstruction. On 11/25/2017, he was taken to the operating room where he underwent laparotomy with lysis of adhesions. He had multiple sites of adhesions involving the distal ileum causing some twisting of his small bowel and causing a small-bowel obstruction. He did well through the operation. Postoperatively, he had a prolonged ileus requiring central TPN and prolonged NG tube placement. He did gradually progress in both diet and activity as well as GI function and removal of the NG tube. He has progressed to where he has felt stable for discharge home today to be seen in the clinic next week for wound check and clip removal.
[2017-12-03 06:46] LABS: ALBUMIN 2.1 gm/dl (3.4-5.0); CALCIUM 8.9 mg/dl (8.5-10.1); CREATININE 0.6 mg/dl (0.60-1.40); POTASSIUM 4.1 mmol/L (3.5-5.1)
[2017-12-03 06:49] LABS: TOTAL PROTEIN 6.8 gm/dl (6.4-8.2)
[2017-12-03 07:20] VITALS: BP 114/79; PULSE 90; TEMP 36.4; O2SAT 93
[2017-12-03 07:50] LABS: BASO % 2.2 %; BASO ABS # 0.25 K/uL (0-0.2); EOS ABS # 0.12 K/uL (0-0.5); IG# 1.02 K/uL (0.00-0.02); LYMPH % 22.7 %; LYMPH ABS # 2.62 K/uL (1.2-3.4); MONO % 12.7 %; MONO ABS # 1.47 K/uL (0.11-0.59); NEUT % 52.6 %; NEUT ABS # 6.05 K/uL (1.4-6.5)
[2017-12-03] MEDS: SODIUM CHLORIDE 0.65% NA SOLN 45 ML (OCEAN) SCH (09:00)
[2017-12-03] MEDS: DICLOFENAC SOD 1% GEL 100 GM TUBE EXT SCH ×2 (09:00→13:00)
[2017-12-03] MEDS: TIOTROPIUM BROMIDE 5 PUFF/90 MCG INH INH SCH (09:44)
[2017-12-03] MEDS: ENOXAPARIN 40 MG/0.4 ML SYR SQ SCH (09:46)
[2017-12-03] MEDS: INSULIN GLARGINE SOLOSTAR 100 UNITS/ML 3 ML PEN SC SCH (09:47)
[2017-12-03] MEDS: INSULIN ASPART 100 UNITS/ML 3 ML PEN SC SCH ×2 (09:49→12:00)
[2017-12-03 09:55] VITALS: BP 114/79; PULSE 90; TEMP 36.4; O2SAT 93
--- NOTE | 2017-12-03 11:51 | Discharge Instructions ---
Discharge Instructions Date of Service Dec 03, 2017. Admission Reason for Admission: SBO Discharge Discharge Diagnosis / Problem: Small Bowel Obstruction Discharge Goals Goal(s): Decrease discomfort, Therapeutic intervention Activity Recommendations Activity Limitations: per Instructions/Follow-up section Lifting Limitations: no more than 10 pounds Exercise/Sports Limitations: until after follow-up appointment May Resume Sexual Activity: when tolerated . Instructions / Follow-Up Instructions / Follow-Up - Resume all home medications as prior to admission - See Surgery Instructions regarding pain control and wound management - Follow up with Dr. Milligan for scheduled follow up appointment - Follow up with Dr. Cunningham of Gastroenterology (Colon doctor) for Colonoscopy - Follow up with you primary care physician in the next 1-2 days - Discuss adding a Statin medication to your current medication regimen with your primary care doctor - Discuss changing your current diabetic medications as you required significant long acting insulin dosing during your admission Oxycodone (OxyIR) 5mg: Take 1-2 pills every four hours for breakthrough pain. Avoid alcohol, operating machinery or dangerous equipment, working on ladders or roofs, DRIVING, or situations where being under the influence may be dangerous. It is recommended to use an jwji-noc-dawgyot stool softener such as Colace, 100mg twice daily while taking this medication to avoid constipation. Ibuprofen(Motrin, Advil) may be used for fever or pain. Use 600mg every six hours as needed. Take with food. Avoid using more than 2400mg in a 24 hour period. Do not use 2400mg per day for more than three consecutive days without physician direction. Prolonged inappropriate use can lead to stomach upset or ulcers. (AND/OR) Acetaminophen(Tylenol) may be used for fever or pain. Use 1000mg every six hours as needed. Avoid using more than 4000mg in a 24 hour period. Return to the emergency department in 8-12 hours for reevaluation or sooner if the pain worsens, migrates to the right lower part of your abdomen, vomiting occurs, or you feel it necessary. Return to the ER immediately for worsening or persistent abdominal pain, vomiting, fevers, chest pains, difficulty breathing, black or bloody stools, worsening of your condition, or as needed. Current Hospital Diet Patient's current hospital diet: Diabetes Type 2 Diet, Regular Diet Discharge Diet Recommended Diet: Diabetes Type 2 Diet Procedures Procedures Performed: Exploratory Laparotomy, Lysis of Adhesions, Repair of Umbilical Hernia Pending Studies Studies pending at discharge: no Laboratory Results Lipid Panel Test 11/28/17 05:23 Range/Units Triglycerides Level 125 0-150 mg/dl Medical Emergencies . Who to Call and When: Medical Emergencies: If at any time you feel your situation is an emergency, please call 911 immediately. . Non-Emergent Contact Non-Emergency issues call your: Primary Care Provider . . "Provider Documentation" section prepared by Kp Evans. . VTE Core Measure Inpt VTE Proph given/why not?: Enoxaparin (Lovenox)SQ, SCD's
--- NOTE | 2017-12-05 07:18 | Discharge Summary ---
Discharge Summary Date of Service Dec 05, 2017. Discharge Summary Admission Date: Nov 22, 2017 at 00:27 Discharge Date: Dec 03, 2017 Discharge Disposition: Home Principal Diagnosis: Small Bowel Obstruction Immunizations: Have You Had Influenza Vaccine: No History of Tetanus Vaccine?: Yes Tetanus Immunization Date: Aug 03, 2005 History of Pneumococcal: No History of Hepatitis B Vaccine: No Medication Reconciliation New Medications: Oxycodone/Acetaminophen 5MG/325MG (Percocet 5MG/325MG) Tab 1-2 TABLETS PO q 6 hrs PRN for Pain, #40 TAB PAIN Continued Medications: Alprazolam (Alprazolam) 0.25 Mg Tab 0.25 MG PO DAILY PRN for Anxiety Aspirin (Aspir-Low) 81 Mg Tab 81 MG PO HS Cyclobenzaprine Hcl (Flexeril) 10 Mg Tab 10 MG PO TID PRN for Muscle Spasm, TAB Glimepiride (Glimepiride) 4 Mg Tab 8 MG PO DAILY, TAB Insulin Aspart (Novolog Flexpen) 100 Units/Ml Inj 1 DOSE SC ACHS COVERAGE DIRECTED BY SLIDING SCALE Lisinopril (Lisinopril) 2.5 Mg Tab 2.5 MG PO DAILY, TAB Metformin Hcl (Glucophage) 1,000 Mg Tab 1000 MG PO BIDM, TAB Naproxen (Naprosyn) 500 Mg Tab 500 MG PO BID PRN for Pain, TAB Nortriptyline (Pamelor) 25 Mg Cap 25 MG PO HS, CAP Tiotropium [place] (Spiriva Handihaler) 30 Puff/540 Mcg Aerp 1 CAP INH DAILY, INHALER Discontinued Medications: Oxycodone/Acetaminophen 7.5MG/325MG (Percocet 7.5MG/325MG) Tab 1 TAB PO Q6H PRN for Pain, TAB Discharge Exam Review of Systems: Constitutional: No fever, No chills, No fatigue Respiratory: No cough, No sputum, No shortness of breath Cardiovascular: No chest pain, No palpitations Abdomen: No pain, No nausea, No vomiting Physical Exam: General Appearance: WD/WN, no apparent distress Eyes: normal inspection, sclerae normal Neck: supple, no carotid bruits Respiratory/Chest: chest non-tender, lungs clear, normal breath sounds Cardiovascular: regular rate, rhythm, no edema, no murmur Abdomen / GI: normal bowel sounds, non tender, soft Neurologic/Psychiatric: alert, oriented x 3 Hospital Course 56 year old male with COPD, DMII, anxiety and chronic back pain admitted for small bowel obstruction and s/p lysis of adhesions. Patient is currently transitioning from TPN to PO slowly. Partial SBO POD #7 lysis of adhesions - Patient taken for surgery due to worsening distension and pain despite NG tube and bowel rest - NG tube d/c 11/29/2017 and ADAT - TPN to be weaned today per surgery - IV Zofran/ Phenergan for nausea - Oxycodone for pain control, weaned off Dilaudid - Relistor 12 mg q2 days - Considering the unique nature of the adhesions it is recommended by GI that the patient have a follow up colonoscopy with Dr mariee in outpatient setting - encourage incentive remy and ambulation - goal is for two hallway walks today VERNA - Patient states he does take alprazolam prn at home with nortriptyline - Unable to sleep because of his anxiety, Vistaril HS for insomnia - Nortriptyline PO cont'd HTN - aspirin and lisinopril 2.5 mg held as patient NPO - blood pressure well controlled - IV hydralazine 10mg q6h for SBP >160 COPD controlled - Continue Spiriva DMII - Metformin 1000 mg bid and glimepiride 8 mg daily held - ISS with check ac/hs - Lantus BID, adjust as patient increases diet - patient is not currently on a statin and may benefit Chronic back pain; chronic narcotic use - back pain> abdominal discomfort - Voltaren qid - Patient on chronic Percocet and Naprosyn for back pain at home - Flexeril 10 mg tid held - PDMP reviewed and patient does have regular monthly rx for these medications without suspicious behavior DVT prophylaxis - SCD and Lovenox 40 meq Total Time Spent: Greater than 30 minutes This includes examination of the patient, discharge planning, medication reconciliation, and communication with other providers. Discharge Instructions Please refer to the electronic Patient Visit Report (Discharge Instructions) for additional information. Additional Copies To Radha Courtney M.D. Resident Tracking Resident Involvement: Resident Care Provided Care Provided: [facility]
== END 2017-12-03 13:30 | disposition home or self-care (01) | DRG 354 ==
LOC: C.EDB 19:03 → C.MSW 11-22 00:27 → ENRESERV 11-22 01:05 → CANBEDREQ 11-25 11:30 → ENRESERV 11-26 17:12 → C.2T 11-26 18:45 → ENRESERV 11-27 12:37 → C.MSN 11-27 14:08
PROVIDERS: ADMIT Student in an Organized Health Care Education/Training Program; ATTEND Hospitalist
PROC: 0WQF0ZZ Repair Abdominal Wall, Open Approach (ICD-10-PCS; principal; 2017-11-25 10:00)
DX: K56.609 Unspecified intestinal obstruction, unspecified as to partial versus complete obstruction (principal); B37.0 Candidal stomatitis; I25.10 Atherosclerotic heart disease of native coronary artery without angina pectoris; J44.9 Chronic obstructive pulmonary disease, unspecified; E11.9 Type 2 diabetes mellitus without complications; I10 Essential (primary) hypertension; E78.5 Hyperlipidemia, unspecified; A08.4 Viral intestinal infection, unspecified; B37.9 Candidiasis, unspecified; F41.1 Generalized anxiety disorder; K52.9 Noninfective gastroenteritis and colitis, unspecified; Z79.82 Long term (current) use of aspirin; Z87.891 Personal history of nicotine dependence; Z79.4 Long term (current) use of insulin